=== PATIENT | female | born 1980 | race African-American/Black ===

== ENCOUNTER 2018-07-15 11:11 | Inpatient (IN) | payer OTHER ==
[2018-07-15] MEDS ORDERED: ACETAMINOPHEN INJECTION 100 ML IVPB ONE (11:16)
[2018-07-15] MEDS ORDERED: morphine SULFATE 4 MG/ML VIAL IVPUSH ONE (11:29)
[2018-07-15] MEDS ORDERED: SODIUM CHLORIDE 1,000 ML IV STA (11:29)
[2018-07-15] MEDS ORDERED: ACETAMINOPHEN 1000 MG/100 ML VIAL (NON FORMULARY) IVPB ONE (11:29)
--- NOTE | 2018-07-15 11:38 | PDOC ---
History of Present Illness - History of Present Illness Initial Comments: 07/15/18 11:54 The patient is a 38 year old female with past medical history of VSD (repair done 1996) who was brought in by EMS for syncopal episode just prior to arrival. As per family, she had just left her cousins house and was walking in the street when she became dizzy. The next thing she remembers is being surrounded by EMS and was told she lost consciousness, and hit the back of her head very hard. Upon regaining consciousness, she noted a constant sharp chest pain that radiates to her back. EMS also noted her to have elevated heart rate and low O2 saturation. She also remains dizzy since the fall. She also reports that this morning she woke up with a pain in her left calf. Denies any lower extremity swelling. She denies any use of control, denies smoking history , and denies any recent travel/prolonged sitting. Reports her grandmother has a history of heart disease. She denies any fevers, chills, nausea, vomiting, diarrhea, cough, or urinary complaints. <Nela Hobbs - Last Filed: 07/15/18 14:38> - General History Source: Patient, Family Exam Limitations: No Limitations <Mikie Tiwari - Last Filed: 07/19/18 15:10> - General Stated Complaint: SYNCOPE Time Seen by Provider: 07/15/18 11:27 Past History <Nela Hobbs - Last Filed: 07/15/18 14:38> <Mikie Tiwari - Last Filed: 07/19/18 15:10> - Past Medical History Allergies/Adverse Reactions: Allergies Allergy/AdvReac Type Severity Reaction Status Date / Time No Known Allergies Allergy Verified 07/15/18 11:25 Home Medications: Ambulatory Orders NK [No Known Home Medication] 07/15/18 NK [No Known Home Medication] 07/15/18 Review of Systems - Review of Systems Able to Perform ROS?: Yes Comments:: 07/15/18 11:54 GENERAL/CONSTITUTIONAL: No fever or chills. No weakness. HEAD, EYES, EARS, NOSE AND THROAT: No change in vision. No ear pain or discharge. No sore throat. CARDIOVASCULAR: (+) chest pain. No shortness of breath. RESPIRATORY: No cough, wheezing, or hemoptysis. GASTROINTESTINAL: No nausea, vomiting, diarrhea or constipation. GENITOURINARY: No dysuria, frequency, or change in urination. MUSCULOSKELETAL:(+) left calf pain. No neck or back pain. SKIN: No rash NEUROLOGIC: (+) Syncope. No headache, vertigo, or change in strength/sensation. ENDOCRINE: No increased thirst. No abnormal weight change. HEMATOLOGIC/LYMPHATIC: No anemia, easy bleeding, or history of blood clots. ALLERGIC/IMMUNOLOGIC: No hives or skin allergy. All Other Systems: Reviewed and Negative <Nela Hobbs - Last Filed: 07/15/18 14:38> *Physical Exam - Vital Signs Last Vital Signs Temp Pulse Resp BP Pulse Ox 99 F 112 H 23 133/88 90 L 07/15/18 11:11 07/15/18 11:11 07/15/18 11:11 07/15/18 11:11 07/15/18 11:11 - Physical Exam Comments: 07/15/18 11:55 GENERAL: Awake, alert, and fully oriented, in no acute distress HEAD: No signs of trauma EYES: PERRLA, EOMI, sclera anicteric, conjunctiva clear ENT: Auricles normal inspection, hearing grossly normal, nares patent, oropharynx clear without exudates. Moist mucosa NECK: Normal ROM, supple, no lymphadenopathy, JVD, or masses LUNGS: Breath sounds equal, clear to auscultation bilaterally. No wheezes, and no crackles HEART: Tachycardic. normal S1 and S2, no murmurs, rubs or gallops ABDOMEN: Soft, nontender, normoactive bowel sounds. No guarding, no rebound. No masses EXTREMITIES: Left calf pain on palpation. No clubbing or cyanosis. No cords, erythema, or tenderness NEUROLOGICAL: Cranial nerves II through XII grossly intact. Normal speech, normal gait SKIN: Warm, Dry, normal turgor, no rashes <Nela Hobbs - Last Filed: 07/15/18 14:38> Heart Score/ECG Review #1 ECG reviewed & interpreted by me at: 11:05 07/15/18 11:46 NSR 118, RSR' V1, TWI III, normal axis, normal intervals, QTC 445 msec <Mikie Tiwari - Last Filed: 07/19/18 15:10> ED Treatment Course - LABORATORY CBC & Chemistry Diagram: 07/15/18 11:50 07/15/18 11:50 - RADIOLOGY Radiograph Interpretation: 07/15/18 11:58 Chest X-ray as reviewed by Dr. Santana reports no acute pathology. 07/15/18 14:[address] as reviewed by Dr. Maguire reports no acute intracranial pathology. Equivocal visualization of a occipital scalp hematoma centered along the midline. 07/15/18 14:37 Chest CTA as reviewed by Dr. Maguire reports acute pulmonary embolism. 07/15/18 14:38 Vascular study reviewed by Dr. Maguire reports no evidence of DVT. - Medications Given in the ED: ED Medications Discontinued Medications Generic Name Dose Route Start Last Admin Trade Name Freq PRN Reason Stop Dose Admin Acetaminophen 1,000 mg 07/15/18 11:29 07/15/18 11:15 Ofirmev Injection - IVPB 07/15/18 11:30 1,000 mg ONCE ONE Administration <Nela Hobbs - Last Filed: 07/15/18 14:38> - LABORATORY CBC & Chemistry Diagram: 07/19/18 05:30 07/19/18 05:30 - RADIOLOGY Radiology Studies Ordered: Category Date Time Status CHEST CTA [CT] Stat CT Scan 07/15/18 11:[address] WITHOUT CONTRAST [CT] Stat CT Scan 07/15/18 11:28 Ordered CHEST X-RAY PORTABLE* [RAD] Stat Radiology 07/15/18 11:28 Ordered <Mikie Tiwari - Last Filed: 07/19/18 15:10> Medical Decision Making - Critical Care Time Total Critical Care Time (minutes): 45 Critical Care Statement: The care of this patient involved high complexity decision making to prevent further life threatening deterioration of the patient 's condition and/or to evaluate & treat vital organ system(s) failure or risk of failure. - Medical Decision Making 07/15/18 11:30 Portions of this note was written by my scribe, under my supervision. Vital Signs Temp Pulse Resp BP Pulse Ox 99 F 112 H 23 133/88 90 L 07/15/18 11:11 07/15/18 11:11 07/15/18 11:11 07/15/18 11:11 07/15/18 11:11 38-year-old female with past medical history of ventral septal defect status post repair when patient was 17 years old presents with syncope. The patient was in her usual state of health until this morning when she woke up with some left calf pain. She was walking to her cousin's home she suddenly felt dizzy and syncopized. She hit her head and is now complaining of a headache. Does not take any anticoagulants. Developed midsternal pleuritic chest pain radiating to the back. Reports some symptoms of breath and the patient's hypoxic to high 80 percent.Denies any fevers or chills. Denies prior history of pulmonary embolism or acute coronary syndrome. Patient reports feeling chest pain and feeling generally weak. EKG demonstrates an RSR prime in V1 and sinus tachycardia. Patient is hypoxic with pleuritic chest pain. I am concerned for a submassive pulmonary embolism. However, given that the patient had struck her head hard and has headache, we' ll need to hold heparin until obtained a head CT to rule out intracranial hemorrhage. We'll also obtain a troponin and BNP. Patient's family at bedside is aware. Patient is critically ill and is under evaluation by me in the ED team. 07/15/18 15:10 CBC, BMP 07/15/18 11:50 07/15/18 11:50 CMP Sodium 141 mmol/L (136-145) 07/15/18 11:50 Potassium 3.8 mmol/L (3.5-5.1) 07/15/18 11:50 Chloride 108 mmol/L (98-107) H 07/15/18 11:50 Carbon Dioxide 23 mmol/L (21-32) 07/15/18 11:50 Anion Gap 10 MMOL/L (8-16) 07/15/18 11:50 BUN 9 mg/dL (7-18) 07/15/18 11:50 Creatinine 0.7 mg/dL (0.55-1.02) 07/15/18 11:50 Creat Clearance w eGFR > 60 (>60) 07/15/18 11:50 Random Glucose 74 mg/dL (74-106) 07/15/18 11:50 Calcium 7.9 mg/dL (8.5-10.1) L 07/15/18 11:50 Phosphorus 3.2 mg/dL (2.5-4.9) 07/15/18 11:50 Magnesium 1.8 mg/dL (1.8-2.4) 07/15/18 11:50 Total Bilirubin 0.2 mg/dL (0.2-1.0) 07/15/18 11:50 AST 57 U/L (15-37) H 07/15/18 11:50 ALT 42 U/L (12-78) 07/15/18 11:50 Alkaline Phosphatase 47 U/L (45-117) 07/15/18 11:50 Creatine Kinase 153 IU/L (26-192) 07/15/18 11:50 Creatine Kinase Index 1.0 % (0.0-5.0) 07/15/18 11:50 CK-MB (CK-2) 1.68 ng/mL (0.5-3.6) 07/15/18 11:50 Troponin I 0.41 ng/ml (0.00-0.05) H 07/15/18 11:50 B-Natriuretic Peptide 87.28 pg/ml (5-125) 07/15/18 11:50 Total Protein 7.8 g/dl (6.4-8.2) 07/15/18 11:50 Albumin 3.6 g/dl (3.4-5.0) 07/15/18 11:50 Serum , Qual Negative 07/15/18 11:[address] chest with multiple bilateral PEs (but no saddle embolus). D-dimer elevated. Pt started on heparin bolus and drip. Pt's BP stable, and hypoxia correctable with nasal cannula. Case discussed with ICU attending Dr. Geremias Freed. Accepted to ICU. Admission diagnosis: submassive PE Pt to be admitted to hospital for behavioral medicine service. <Mikie Tiwari - Last Filed: 07/19/18 15:10> *DC/Admit/Observation/Transfer - Attestations Scribe Attestion: 07/15/18 11:55 Documentation prepared by Nela Hobbs, acting as medical educator for Mikie Tiwari MD. <Nela Hobbs - Last Filed: 07/15/18 14:38> - Discharge Dispostion Decision to Admit order: Yes <Mikie Tiwari - Last Filed: 07/19/18 15:10> Diagnosis at time of Disposition: Pulmonary embolism Qualifiers: Pulmonary embolism type: other Chronicity: acute Acute cor pulmonale presence: with acute cor pulmonale Qualified Code(s): I26.09 - Other pulmonary embolism with acute cor pulmonale - Discharge Dispostion Condition at time of disposition: Improved
[2018-07-15] MEDS ORDERED: MORPHINE SULFATE 2 MG/ML VIAL ONE (11:53)
[2018-07-15 12:08] LABS: BASO % 1.5 % (0-2.0); EOS % 0.4 % (0-4.5); HEMATOCRIT 33.7 % (32.4-45.2); HEMOGLOBIN 10.9 GM/dL (10.7-15.3); LYMPH % 18.3 % (8-40); MCH 27.5 pg (25.7-33.7); MCHC 32.4 g/dl (32.0-36.0); MEAN CELL VOLUME 84.8 fl (80-96); MEAN PLT VOLUME 8.7 fl (7.5-11.1); MONO % 9.7 % (3.8-10.2); NEUT % 70.1 % (42.8-82.8); PLATELET COUNT 209 K/MM3 (134-434); RBC 3.98 M/mm3 (3.60-5.2); RDW 17.2 % (11.6-15.6); WHITE BLOOD COUNT 5.2 K/mm3 (4.0-10.0)
[2018-07-15 12:29] LABS: ALBUMIN 3.6 g/dl (3.4-5.0); ANION GAP 10 MMOL/L (8-16); BILIRUBIN,TOTAL 0.2 mg/dL (0.2-1.0); BLOOD UREA NITROGEN 9 mg/dL (7-18); CALCIUM 7.9 mg/dL (8.5-10.1); CHLORIDE 108 mmol/L (98-107); CO2 23 mmol/L (21-32); CREATININE 0.7 mg/dL (0.55-1.02); GLUCOSE,RANDOM 74 mg/dL (74-106); MAGNESIUM 1.8 mg/dL (1.8-2.4); PHOSPHOROUS 3.2 mg/dL (2.5-4.9); POTASSIUM 3.8 mmol/L (3.5-5.1); SODIUM 141 mmol/L (136-145); TOT PROT 7.8 g/dl (6.4-8.2)
[2018-07-15 12:30] LABS: SGOT/AST 57 U/L (15-37); SGPT/ALT 42 U/L (12-78)
[2018-07-15 12:34] LABS: ALK PHOS 47 U/L (45-117); N-TERMINAL BNP 87.28 pg/ml (5-125)
[2018-07-15 13:09] LABS: ACTIVATED PTT 21.5 SECONDS (25.2-36.5); INR 1.04 (0.83-1.09); PROTHROMBIN TIME (PATIENT) 11.7 SEC (9.7-13.0)
[2018-07-15 13:47] LABS: URINE APPEARANCE CLEAR; URINE BILIRUBIN NEGATIVE (<2.0 mg/dL); URINE COLOR STRAW; URINE GLUCOSE (UA) NEGATIVE (NEGATIVE); URINE KETONE NEGATIVE (NEGATIVE); URINE LEUK ESTERASE NEGATIVE (NEGATIVE); URINE NITRITE NEGATIVE (NEGATIVE); URINE UROBILINOGEN NEGATIVE mg/dL (0.2-1.0)
[2018-07-15 13:51] LABS: URINE PROTEIN 1+ (NEGATIVE)
[2018-07-15 14:01] LABS: EPI CELLS FEW /HPF (FEW); URINE BACTERIA RARE /hpf (NONE SEEN); URINE MUCUS RARE
[2018-07-15] MEDS ORDERED: HEPARIN NA (PORCINE) 5,000 UNITS/ML 1ML VIAL IVPUSH ONE (14:04)
[2018-07-15] MEDS ORDERED: HEPARIN - 25,000 UNIT in SODIUM CHLORIDE 495 ML IV SCH (14:15)
[2018-07-15] MEDS ORDERED: HEPARIN NA (PORCINE) 5,000 UNITS/ML 1ML VIAL ONE (14:47)
[2018-07-15] MEDS ORDERED: HEPARIN INFUSION - 25,000 UNITS/500 ML INFUS.BAG IVPB ONE (14:48)
--- NOTE | 2018-07-15 15:43 | PN ---
Teaching Attending Note Name of Resident: Erlin Zamora ATTENDING PHYSICIAN STATEMENT I saw and evaluated the patient. I reviewed the resident's note and discussed the case with the resident. I agree with the resident's findings and plan as documented. SUBJECTIVE: Pt seen and examined in the ER. Briefly, 38yo female with h/o VSD who woke up with leg pain this AM, had a syncopal episode while walking around. Found to have bilateral pulmonary emboli on CTA chest. Denies personal or family history of clots. Nonsmoker, ambulatory, not on any hormone therapy. No prolonged sedentary periods. OBJECTIVE: Vital Signs Period Temp Pulse Resp BP Sys/Castrejon Pulse Ox Last 24 Hr 98.1 F-99 F 109-112 20-23 133-137/88-93 90-100 Intake & Output 07/12/18 07/13/18 07/14/18 07/15/18 23:59 23:59 23:59 23:59 Intake Total 1000 Balance 1000 Weight 75.75 kg Gen: NAD at rest Heart: RRR Lung: decreased breath sounds at the bases Abd: soft, nontender Ext: no edema CBC, BMP 07/15/18 11:50 07/15/18 11:50 Troponin, BNP 07/15/18 11:50 Troponin I 0.41 H B-Natriuretic Peptide 87.28 Active Medications Heparin Sodium (Porcine) 25, (000 unit/ Sodium Chloride) 500 mls @ 26 mls/hr IV TITR JEOVANY; Protocol Last Admin: 07/15/18 14:50 Dose: 1,300 unit/hr, 26 mls/hr ASSESSMENT AND PLAN: Acute Submassive Pulmonary Emboli appears to be unprovoked Syncope - continue anticoagulation - echocardiogram - trend cardiac enzymes - O2 to keep SpO2 >90% - if worsening symptoms or further syncopal episodes or right heart strain on echocardiogram, may benefit from catheter directed thrombolysis - ICU monitoring for now critical care time spent in reviewing chart, evaluating patient and formulating plan 35 min
--- NOTE | 2018-07-15 15:50 | CONSULT ---
Consultation: REQUESTING PROVIDER: Dr. Mikie Tiwari CONSULT REQUEST: We have been asked to medically evaluate this patient for Pulmonary Embolism. HISTORY OF PRESENT ILLNESS: Pt. endorses that she woke up this morning with bilateral calf pain. She denied eating breaakfast this morning. Pt. was walking to her friend's house when she felt dizzy and collapsed. Per her friend who witnessed the fall said she was brought to the hospital by ambulance. Pt. denies any prior syncopal episodes, smoking, control use, family hx. of blood clots, prior hx. of clots, sitting for a prolonged time, miscarriages or drug use. Pt. endorses chest pain that is worse with deep inspiration. REVIEW OF SYSTEMS: CONSTITUTIONAL: Absent: fever, chills, HEENT: Absent: ear pain, eye pain, visual changes CARDIOVASCULAR: syncope, chest pain Absent: palpitations, irregular heart rate, RESPIRATORY: Absent: cough, shortness of breath, dyspnea with exertion GASTROINTESTINAL: Absent: abdominal pain, abdominal distension, nausea, vomiting, diarrhea, constipation, melena, hematochezia GENITOURINARY: Absent: dysuria, frequency, urgency, hesitancy, hematuria MUSCULOSKELETAL: Absent: myalgia, arthralgia, joint swelling, back pain, neck pain SKIN: Absent: rash, itching, pallor HEMATOLOGIC/IMMUNOLOGIC: Absent: easy bleeding, easy bruising, frequent infections NEUROLOGIC: dizziness, seizure? Absent: headache, focal weakness or paresthesias, unsteady gait, , mental status changes, bladder or bowel incontinence PHYSICAL EXAMINATION Vital Signs - 24 hr 07/15/18 07/15/18 07/15/18 11:11 11:55 12:35 Temperature 99 F Pulse Rate 112 H Pulse Rate [ 110 H Apical] Respiratory 23 21 Rate Blood Pressure 133/88 Blood Pressure 135/90 [Left Arm] O2 Sat by Pulse 90 L 99 96 Oximetry (%) 07/15/18 07/15/18 14:00 15:32 Temperature 98.1 F Pulse Rate Pulse Rate [ 111 H 109 H Apical] Respiratory 20 20 Rate Blood Pressure Blood Pressure 136/92 137/93 [Left Arm] O2 Sat by Pulse 100 96 Oximetry (%) GENERAL: Awake, alert, and fully oriented, in no acute distress. HEAD: Normal with no signs of trauma. EARS, NOSE, THROAT: oropharynx clear without exudates. Moist mucous membranes. LUNGS: Breath sounds equal, clear to auscultation bilaterally. No wheezes, and no crackles. No accessory muscle use. HEART: Regular rate and rhythm, normal S1 and S2 without murmur ABDOMEN: Soft, nontender, not distended, normoactive bowel sounds, no guarding, no rebound, no masses. UPPER EXTREMITIES: warm, well-perfused. No cyanosis. No clubbing. Cap refill <2 seconds. No peripheral edema. LOWER EXTREMITIES: 2+ pulses, warm, well-perfused. No calf tenderness. No peripheral edema. PSYCHIATRIC: Cooperative. Good eye contact. Appropriate mood and affect. SKIN: Warm, dry, normal turgor Laboratory Results - last 24 hr 07/15/18 07/15/18 07/15/18 11:43 11:50 11:50 WBC 5.2 RBC 3.98 Hgb 10.9 Hct 33.7 MCV 84.8 MCH 27.5 MCHC 32.4 RDW 17.2 H Plt Count 209 MPV 8.7 Absolute Neuts (auto) 3.7 Neutrophils % 70.1 Lymphocytes % 18.3 Monocytes % 9.7 Eosinophils % 0.4 Basophils % 1.5 Nucleated RBC % 0 PT with INR 11.70 INR 1.04 PTT (Actin FS) 21.5 L D-Dimer Sodium Potassium Chloride Carbon Dioxide Anion Gap BUN Creatinine Creat Clearance w eGFR Random Glucose Calcium Phosphorus Magnesium Total Bilirubin AST ALT Alkaline Phosphatase Creatine Kinase Creatine Kinase Index CK-MB (CK-2) Troponin I B-Natriuretic Peptide Total Protein Albumin Serum , Qual Urine Color Straw Urine Appearance Clear Urine pH 6.0 Ur Specific [place] 1.009 Urine Protein 1+ H Urine Glucose (UA) Negative Urine Ketones Negative Urine Blood 1+ H Urine Nitrite Negative Urine Bilirubin Negative Urine Urobilinogen Negative Ur Leukocyte Esterase Negative Urine WBC (Auto) 2 Urine RBC (Auto) None Ur Epithelial Cells Few Urine Bacteria Rare Urine Mucus Rare 07/15/18 07/15/18 07/15/18 11:50 11:50 11:50 WBC RBC Hgb Hct MCV MCH MCHC RDW Plt Count MPV Absolute Neuts (auto) Neutrophils % Lymphocytes % Monocytes % Eosinophils % Basophils % Nucleated RBC % PT with INR INR PTT (Actin FS) D-Dimer 50933 H Sodium 141 Potassium 3.8 Chloride 108 H Carbon Dioxide 23 Anion Gap 10 BUN 9 Creatinine 0.7 Creat Clearance w eGFR > 60 Random Glucose 74 Calcium 7.9 L Phosphorus 3.2 Magnesium 1.8 Total Bilirubin 0.2 AST 57 H ALT 42 Alkaline Phosphatase 47 Creatine Kinase 153 Creatine Kinase Index 1.0 CK-MB (CK-2) 1.68 Troponin I 0.41 H B-Natriuretic Peptide 87.28 Total Protein 7.8 Albumin 3.6 Serum , Qual Negative Urine Color Urine Appearance Urine pH Ur Specific [place] Urine Protein Urine Glucose (UA) Urine Ketones Urine Blood Urine Nitrite Urine Bilirubin Urine Urobilinogen Ur Leukocyte Esterase Urine WBC (Auto) Urine RBC (Auto) Ur Epithelial Cells Urine Bacteria Urine Mucus Active Medications Current Medications Acetaminophen (Tylenol -) 650 mg PO Q6H PRN PRN Reason: PAIN LEVEL 1-5 Chlorhexidine Gluconate (Hibiclens For Decolonization -) 1 applic TP HS JEOVANY Heparin Sodium (Porcine) (Heparin -) 3,000 unit 40 unit/kg (3000 unit) IVPUSH PRN PRN PRN Reason: For aPTT 35 to 45 seconds Heparin Sodium (Porcine) (Heparin -) 6,100 unit 80 unit/kg (6100 unit) IVPUSH PRN PRN PRN Reason: aPTT <35 seconds Heparin Sodium (Porcine) 25, (000 unit/ Sodium Chloride) 500 mls @ 27.27 mls/ hr IV TITR JEOVANY; Protocol Mupirocin (Bactroban Ointment (For Decolonization) -) 1 applic NS BID JEOVANY Stop: 07/20/18 21:59 ASSESSMENT/PLAN: A 38 y.o. F w/ PMHx. of VSD surgery in 1996, presents after dizziness and syncopal episode to the ED. Pt. was admitted for unprovoked bilateral PE #Cardiovascular -Tachycardia 2/2 Bilateral PE started on Heparin drip ICU monitoring CTA positive for b/l PE: left upper lobe anterior segmental artery, right pulmonary artery distally, right posterior basilar, right upper lobe posterior, right middle lobe segmental artery. f/u Echo to rule out structural defects f/u AM labs: CBC, BMP, Phos, Mag #Pulmonary -B/l PE Pt. saturating well on room air supplemental O2 as needed to keep SpO2 above 90% #F/E/N Regular Diet Pt. receiving weight based Heparin drip #DVT PPx. c/w Heparin drip, PTT goal 60-80 If Echo is wnl can start NOAC Dispo: ICU We will continue to follow the patient. Thank you for this consultative opportunity. Visit type - Emergency Visit Emergency Visit: Yes ED Registration Date: 07/15/18 Care time: The patient presented to the Emergency Department on the above date and was hospitalized for further evaluation of their emergent condition. - New Patient This patient is new to me today: Yes Date on this admission: 07/15/18 - Critical Care Critical Care patient: No
--- NOTE | 2018-07-15 16:25 | PN ---
Teaching Attending Note Name of Resident: Kike Steinberg ATTENDING PHYSICIAN STATEMENT I saw and evaluated the patient. I reviewed the resident's note and discussed the case with the resident. I agree with the resident's findings and plan as documented. SUBJECTIVE: This is a 38 year old woman with a history of a VSD s/p repair in 1996 who comes to the ED after a witnessed syncopal episode. She states that she became dizzy while walkingand then awoke on the ground with sharp pain in her chest radiating to her back. She did not have chest pain, palpitations prior to passing out. A friend who witnessed the episode noted that she hit her head and was unconscious for about 3 minutes. OBJECTIVE: Vital Signs Period Temp Pulse Resp BP Sys/Castrejon Pulse Ox Last 24 Hr 98.1 F-99 F 109-112 20-23 133-137/88-93 90-100 HEART: S1S2, tachycardic LUNGS: Clear ABDOMEN: Soft, non-tender, non-distended, normal BS EXTREMITIES: No edema, no calf tenderness, negative Veronica's Laboratory Tests 07/15/18 07/15/18 07/15/18 11:43 11:50 11:50 WBC 5.2 RBC 3.98 Hgb 10.9 Hct 33.7 MCV 84.8 MCH 27.5 MCHC 32.4 RDW 17.2 H Plt Count 209 MPV 8.7 Absolute Neuts (auto) 3.7 Neutrophils % 70.1 Lymphocytes % 18.3 Monocytes % 9.7 Eosinophils % 0.4 Basophils % 1.5 Nucleated RBC % 0 PT with INR 11.70 INR 1.04 PTT (Actin FS) 21.5 L D-Dimer Sodium Potassium Chloride Carbon Dioxide Anion Gap BUN Creatinine Creat Clearance w eGFR Random Glucose Calcium Phosphorus Magnesium Total Bilirubin AST ALT Alkaline Phosphatase Creatine Kinase Creatine Kinase Index CK-MB (CK-2) Troponin I B-Natriuretic Peptide Total Protein Albumin Serum , Qual Urine Color Straw Urine Appearance Clear Urine pH 6.0 Ur Specific [place] 1.009 Urine Protein 1+ H Urine Glucose (UA) Negative Urine Ketones Negative Urine Blood 1+ H Urine Nitrite Negative Urine Bilirubin Negative Urine Urobilinogen Negative Ur Leukocyte Esterase Negative Urine WBC (Auto) 2 Urine RBC (Auto) None Ur Epithelial Cells Few Urine Bacteria Rare Urine Mucus Rare 07/15/18 07/15/18 07/15/18 11:50 11:50 11:50 WBC RBC Hgb Hct MCV MCH MCHC RDW Plt Count MPV Absolute Neuts (auto) Neutrophils % Lymphocytes % Monocytes % Eosinophils % Basophils % Nucleated RBC % PT with INR INR PTT (Actin FS) D-Dimer 94337 H Sodium 141 Potassium 3.8 Chloride 108 H Carbon Dioxide 23 Anion Gap 10 BUN 9 Creatinine 0.7 Creat Clearance w eGFR > 60 Random Glucose 74 Calcium 7.9 L Phosphorus 3.2 Magnesium 1.8 Total Bilirubin 0.2 AST 57 H ALT 42 Alkaline Phosphatase 47 Creatine Kinase 153 Creatine Kinase Index 1.0 CK-MB (CK-2) 1.68 Troponin I 0.41 H B-Natriuretic Peptide 87.28 Total Protein 7.8 Albumin 3.6 Serum , Qual Negative Urine Color Urine Appearance Urine pH Ur Specific [place] Urine Protein Urine Glucose (UA) Urine Ketones Urine Blood Urine Nitrite Urine Bilirubin Urine Urobilinogen Ur Leukocyte Esterase Urine WBC (Auto) Urine RBC (Auto) Ur Epithelial Cells Urine Bacteria Urine Mucus Home Medications Medication Instructions Recorded NK [No Known Home Medication] 07/15/18 ASSESSMENT AND PLAN: This is a 38 year old woman with a history of a VSD s/p repair in 1996 who presented to the ED with chest and back pain after a witnessed syncopal episode. 1. Acute submassive pulmonary embolism, unprovoked - Admit to ICU - IV heparin - Oxygen to keep saturation >90% - Monitor troponin - Echocardiogram - Pulmonary/critical care, hematology consults 2. Syncope secondary to PE 3. History of VSD and repair
--- NOTE | 2018-07-15 16:41 | HP ---
CHIEF COMPLAINT: Syncopal episode, loss of consciousness PCP: HISTORY OF PRESENT ILLNESS: 38 year old female with history of VSD repaired in 1996 presents after syncopal episode witnessed by her friend this morning. Patient was leaving her cousin's house, walking towards grocery store when she suddenly felt dizzy, and lost consciousness. She admits weakness in her B/L lower extremities (left more than right), and denies chest pain, palpitations, prodromal flushing at time of syncopal episode. Her friend witnessing the fall noted that she hit her head, and was unconscious for approx. 3 minutes. There were no tremors, tongue biting , fecal or urinary incontinence. Patient denies prior history of syncopal episode. When she regained consciousness, she admits to sharp chest pain radiating to her back, which she did not experience before her fall. She also admitted to shortness of breath, headache, dizziness, and denies fevers, chills , cough, hemoptysis. Denies recent travel, or prolonged immobilization. 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 Currently not sexually active, and does not take oral contraceptives. ER course was notable for: (1) Ofirmev, IVNS, Morphine 4mg, Heparin drip (2) EKG, CT head, CT chest, lower extremity doppler, troponins, D-dimer, (3) Recent Travel: PAST MEDICAL HISTORY: Ventricular septal defect PAST SURGICAL HISTORY: VSD repair (1996) Social History: Smoking: denies smoking history Alcohol: admits socially 1-2 drinks, approx. 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 Admits active lifestyle. Family History: Allergies: Denies food, or drug allergies. No Known Allergies Allergy (Verified 07/15/18 11:25) HOME MEDICATIONS: Home Medications Medication Instructions Recorded NK [No Known Home Medication] 07/15/18 REVIEW OF SYSTEMS CONSTITUTIONAL: Admits: Dizziness. Denies fevers, chills, recent change in weight, or change in appetite. Denies starting new medications, or change in diet. HEENT: Admits: Headache. Denies changes in her vision, changes in her hearing, tinnitus , difficulty swallowing CARDIOVASCULAR: Admits: Chest pain, syncope. Denies palpitations, lower extremity edema RESPIRATORY: Admits: Shortness of breath. Denies: wheezing, hemoptysis. GASTROINTESTINAL: Denies: Abdominal pain, nausea, vomiting, diarrhea, constipation, melanotic stools, apryl blood in stools. GENITOURINARY: Denies: Dysuria, hematuria, urinary urgency, urinary hesitancy, flank pain, MUSCULOSKELETAL: Admits: Calf pain left greater than right, that has since resolved upon my encounter. Denies any other myalgias, or arthralgias. SKIN: Denies: Pruritis, new rashes, new bruises. HEMATOLOGIC/IMMUNOLOGIC: Denies: Increased bleeding, easy bruising, or lymphadenopathy. ENDOCRINE: Denies: Recent unexpected weight loss, or weight gain. NEUROLOGIC: Denies: Weakness or parasthesias in upper or lower extremities. Denies urinary or fecal incontinence. PSYCHIATRIC: Denies: Feeling anxious or depressed. Denies suicidal or homocidal ideation. PHYSICAL EXAMINATION Vital Signs - 24 hr 07/15/18 07/15/18 07/15/18 11:11 11:55 12:35 Temperature 99 F Pulse Rate 112 H Pulse Rate [ 110 H Apical] Respiratory 23 21 Rate Blood Pressure 133/88 Blood Pressure 135/90 [Left Arm] O2 Sat by Pulse 90 L 99 96 Oximetry (%) 07/15/18 07/15/18 07/15/18 12:45 14:00 15:32 Temperature 98.1 F Pulse Rate Pulse Rate [ 111 H 109 H Apical] Respiratory 22 20 20 Rate Blood Pressure Blood Pressure 136/92 137/93 [Left Arm] O2 Sat by Pulse 96 100 96 Oximetry (%) GENERAL: Patient is awake, alert, and oriented to person, place, and time. She is resting comfortably in bed with mother at bedside in no acute distress. HEAD: Normocephalic. Tender to light palpation of occiput at midline. EYES: Pupils equal, round and reactive to light and accommodation. Extraocular movements intact. No horizontal or vertical nystagmus noted. Sclerae anicteric. EARS, NOSE, THROAT: Ears normal, nares patent, oropharynx clear without exudates. Moist mucous membranes. NECK: Negative neck pain to palpation or stiffness. Supple, without lymphadenopathy. No thyromegaly or thyroid nodules appreciated. LUNGS: Breath sounds equal, clear to auscultation bilaterally. Good inspiratory effort. No wheezes, and no crackles. No accessory muscle use. HEART: Regular rate and rhythm, +S1 and S2 auscultated. No murmurs or gallops appreciated. ABDOMEN: Soft, nontender to palpation X4 quadrants. Normoactive bowel sounds auscultated X 4 quadrants. No hepatosplenomegaly appreciated. No guarding, no rebound. Rectal: No hemorrhoids, or masses palpated. Minimal light brown stool in rectal vault. No gross blood noted. MUSCULOSKELETAL: Full range of motion in B/L upper and lowed extremities. Strength 5/5 B/L upper extremities in flexion, extension, abduction, adduction. Strength 5/5 lower extremities in hip flexion and extension, knee flexion and extension. 5/5 B/L plantarflexion and dorsiflexion. UPPER EXTREMITIES: 2+ radial pulses. No rashes, or lesions noted. LOWER EXTREMITIES: 2+ dorsalis pedis pulses. No rashes or lesions noted. No calf tenderness B/L. Negative Veronica's sign. No peripheral edema B/L. NEUROLOGICAL: Cranial nerves II-XII intact. No gross focal deficits appreciated. PSYCHIATRIC: Cooperative patient. Appropriate mood and affect upon my encounter today. Laboratory Results - last 24 hr 07/15/18 07/15/18 07/15/18 11:43 11:50 11:50 WBC 5.2 RBC 3.98 Hgb 10.9 Hct 33.7 MCV 84.8 MCH 27.5 MCHC 32.4 RDW 17.2 H Plt Count 209 MPV 8.7 Absolute Neuts (auto) 3.7 Neutrophils % 70.1 Lymphocytes % 18.3 Monocytes % 9.7 Eosinophils % 0.4 Basophils % 1.5 Nucleated RBC % 0 PT with INR 11.70 INR 1.04 PTT (Actin FS) 21.5 L D-Dimer Sodium Potassium Chloride Carbon Dioxide Anion Gap BUN Creatinine Creat Clearance w eGFR Random Glucose Calcium Phosphorus Magnesium Total Bilirubin AST ALT Alkaline Phosphatase Creatine Kinase Creatine Kinase Index CK-MB (CK-2) Troponin I B-Natriuretic Peptide Total Protein Albumin Serum , Qual Urine Color Straw Urine Appearance Clear Urine pH 6.0 Ur Specific Coy 1.009 Urine Protein 1+ H Urine Glucose (UA) Negative Urine Ketones Negative Urine Blood 1+ H Urine Nitrite Negative Urine Bilirubin Negative Urine Urobilinogen Negative Ur Leukocyte Esterase Negative Urine WBC (Auto) 2 Urine RBC (Auto) None Ur Epithelial Cells Few Urine Bacteria Rare Urine Mucus Rare 07/15/18 07/15/18 07/15/18 11:50 11:50 11:50 WBC RBC Hgb Hct MCV MCH MCHC RDW Plt Count MPV Absolute Neuts (auto) Neutrophils % Lymphocytes % Monocytes % Eosinophils % Basophils % Nucleated RBC % PT with INR INR PTT (Actin FS) D-Dimer 26452 H Sodium 141 Potassium 3.8 Chloride 108 H Carbon Dioxide 23 Anion Gap 10 BUN 9 Creatinine 0.7 Creat Clearance w eGFR > 60 Random Glucose 74 Calcium 7.9 L Phosphorus 3.2 Magnesium 1.8 Total Bilirubin 0.2 AST 57 H ALT 42 Alkaline Phosphatase 47 Creatine Kinase 153 Creatine Kinase Index 1.0 CK-MB (CK-2) 1.68 Troponin I 0.41 H B-Natriuretic Peptide 87.28 Total Protein 7.8 Albumin 3.6 Serum , Qual Negative Urine Color Urine Appearance Urine pH Ur Specific Coy Urine Protein Urine Glucose (UA) Urine Ketones Urine Blood Urine Nitrite Urine Bilirubin Urine Urobilinogen Ur Leukocyte Esterase Urine WBC (Auto) Urine RBC (Auto) Ur Epithelial Cells Urine Bacteria Urine Mucus Imaging: -EKG showed Sinus tachycardia, RSR prime in lead V1, S1Q3T3 noted. -CT Head showed no evidence of intracrainal hemorrhage. Positive for occipital scalp hematoma midline. -CT Chest showed multiple Pulmonary Emboli in right upper lobe, right posterior basilar, and right middle lobe segmental arteries, right pulmonary artery, left upper lobe anterior segmental artery. -Lower extremity duplex ultrasound showed no evidence of DVT in B/L legs ASSESSMENT/PLAN: 38 year old female with history of VSD repaired in (1996) presents after syncopal episode, and admitted for Pulmonary Embolism. Syncopal episode secondary to Acute sub-massive unprovoked PE -PEsI: high risk -EKG shows evidence of right heart strain. -CT Chest showed multiple pulmonary emboli, without saddle embolus. -Lower extremity ultrasound shows no evidence of DVT B/L. -Patient is saturating 99% on 2L NC. Goal is to maintain oxygen saturation above 90% -No evidence of intracranial hemorrhage on CT head. -Rectal exam performed- no apryl blood noted. Sent for stool occult. Will F/U. -Patient started on Heparin Drip. STAT bolus 80mg/kg given in ED. -Continue maintenance Heparin drip. PTT goal 60-80 -Pain control with Tylenol 650mg PO Q6 PRN for pain 1-5 -Daily PTT, CBC, CMP -Will F/U ICU/ Pulmonology consultation (Dr. Freed) -Will F/U Hematology/ Oncolgy consult for thrombophilia workup. R/O Acute Coronary Syndrome -EKG showed Sinus tachycardia, RSR prime in lead V1, S1Q3T3 noted. -Troponin 0.41, CK-MB 1.68 -Will trend troponins, with serial ECG -Will F/U cardiac echo FEN -No IV fluids, patient tolerating PO intake -Electrolytes within normal limits. Will follow CMP -Regular diet Prophylaxis -Patient is on Heparin drip Disposition: Admit to ICU Visit type - Emergency Visit Emergency Visit: Yes ED Registration Date: 07/15/18 Care time: The patient presented to the Emergency Department on the above date and was hospitalized for further evaluation of their emergent condition. - New Patient This patient is new to me today: Yes Date on this admission: 07/15/18 - Critical Care Critical Care patient: Yes Total Critical Care Time (in minutes): 35 Critical Care Statement: The care of this patient involved high complexity decision making to prevent further life threatening deterioration of the patient 's condition and/or to evaluate & treat vital organ system(s) failure or risk of failure. Hospitalist Screening - Colonoscopy Questionnaire Colonoscopy Questionnaire: Colonoscopy Questionnaire - Patient: 50 - 75 years old and never had a screening colonoscopy: No History of colon or rectal polyps, or CA: No History of IBD, Crohn's disease or UC: No History of abdominal radiation therapy as a child: Unknown - Relative: 1 with colon or rectal CA, or polyps at age 60 or younger: Unknown Colon or rectal CA diagnosed at age 45 or younger: Unknown Multiple relatives with colon or rectal CA: Unknown - Outcome: Screening Result: Negative Screen
[2018-07-15] MEDS ORDERED: HEPARIN NA (PORCINE) 5,000 UNITS/ML 1ML VIAL IVPUSH PRN ×2 (16:42)
--- NOTE | 2018-07-15 18:40 | CONSULT ---
Consult - text type - Consultation Consultation Note: The patient is a 38 year old female with past medical history of VSD (repair done 1996) who was brought in by EMS for syncopal episode just prior to arrival. As per family, she had just left her cousins house and was walking in the street when she became dizzy. The next thing she remembers is being surrounded by EMS and was told she lost consciousness, and hit the back of her head very hard. Upon regaining consciousness, she noted a constant sharp chest pain that radiates to her back. EMS also noted her to have elevated heart rate and low O2 saturation. She also remains dizzy since the fall. She also reports that this morning she woke up with a pain in her left calf. Denies any lower extremity swelling. She denies any use of control, denies smoking history , and denies any recent travel/prolonged immobility. She denies any fevers, chills, nausea, vomiting, diarrhea, cough, or urinary complaints. Allergies/Adverse Reactions: Allergies Allergy/AdvReac Type Severity Reaction Status Date / Time No Known Allergies Allergy Verified 07/15/18 11:25 Home Medications: Ambulatory Orders NK [No Known Home Medication] 07/15/18 - Vital Signs Last Vital Signs Temp Pulse Resp BP Pulse Ox 99 F 112 H 23 133/88 90 L 07/15/18 11:11 07/15/18 11:11 07/15/18 11:11 07/15/18 11:11 07/15/18 11:11 - RADIOLOGY Radiograph Interpretation: 07/15/18 11:58 Chest X-ray as reviewed by Dr. Santana reports no acute pathology. 07/15/18 14:[address] as reviewed by Dr. Maguire reports no acute intracranial pathology. Equivocal visualization of a occipital scalp hematoma centered along the midline. 07/15/18 14:37 Chest CTA as reviewed by Dr. Maguire reports acute pulmonary embolism. 07/15/18 14:38 Vascular study reviewed by Dr. Maguire reports no evidence of DVT. Vital Signs Temp Pulse Resp BP Pulse Ox 99 F 112 H 23 133/88 90 L 07/15/18 11:11 07/15/18 11:11 07/15/18 11:11 07/15/18 11:11 07/15/18 11:11 Cor: RSR, No murmurs, No gallops Lungs: Clear to P&A Abd: Soft, Normal bowel sounds, No organomegaly Ext:No significant edema Skin: No rashes, Integument intact A/P 38-year-old female with past medical history of ventral septal defect status post repair when patient was 17 years old presents with syncope. The patient was in her usual state of health until this morning when she woke up with some left calf pain. She was walking to her cousin's home she suddenly felt dizzy and syncopized. She hit her head. Does not take any anticoagulants. Developed midsternal pleuritic chest pain radiating to the back. Reports some symptoms of breath and the patient's hypoxic to high 80 percent. No family h/o thrombophilia/no h/o immobility/surgery/injury in preceding 2-3 months/no h/o control pills ?Unprovoked , submassive PE Echo to [facility] at [facility] rt. heart strain. Cardiology consult Pulmonary consult noted On heparin drip PTT being titrated Nl PT/PTT baseline. Renal function normal. 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
[2018-07-15] MEDS: HEPARIN - 25,000 UNIT in SODIUM CHLORIDE 495 ML IV SCH (19:08)
--- NOTE | 2018-07-15 19:13 | ECHO ---
Name: MAURA MOYA Exam:Adult Echocardiogram Study Date: 07/15/2018 04:19 PM Age: 38 yrs Reason For Study: MULTIPLE PE R/O HEART STRAIN Height: 65 in Weight: 167 lb BSA: 1.8 m2 MMode/2D Measurements & Calculations IVSd: 0.72 cm Ao root diam: 2.9 cm LVIDd: 4.3 cm LA dimension: 2.7 cm LVIDs: 2.8 cm LVPWd: 0.71 cm EDV(Teich): 82.2 ml TAPSE: 2.1 cm ESV(Teich): 30.7 ml RV S Mario: 7.3 cm/sec Doppler Measurements & Calculations MV E max mario: 48.9 cm/sec Ao V2 max: 125.1 cm/sec MV A max mario: 59.7 cm/sec Ao max P.3 mmHg MV E/A: 0.82 LV V1 max P.4 mmHg TR max mario: 254.4 cm/sec LV V1 max: 77.9 cm/sec TR max P.0 mmHg Med Peak E' Mario: 7.2 cm/sec Med E/e': 6.8 Lat Peak E' Mario: 11.5 cm/sec Lat E/e': 4.2 Left Ventricle The left ventricular size, thickness and function are normal. The transmitral spectral Doppler flow p attern is suggestive of impaired LV relaxation. Right Ventricle The right ventricle is severely dilated. The right ventricular systolic function is moderate to sever avery reduced. There are regional wall motion abnormalities. Atria The left atrial size is normal. The right atrium is mildly dilated. Tricuspid Valve There is moderate tricuspid regurgitation. Great Vessels The aortic root is normal size. Pericardium/Pleura There is no pericardial effusion. Interpretation Summary The left ventricular size, thickness and function are normal The transmitral spectral Doppler flow pattern is suggestive of impaired LV relaxation. The right ventricle is severely dilated. There are regional wall motion abnormalities. The left atrial size is normal. The right atrium is mildly dilated. There is moderate tricuspid regurgitation. The aortic root is normal size. There is no pericardial effusion. Waldemar Umanzor MD 07/15/2018 07:12 PM
[2018-07-15] MEDS: CHLORHEXIDINE GLUCONATE 4% CLEANSER FOR DECOLONIZATION TP SCH (22:00)
[2018-07-15] MEDS: MUPIROCIN 2% TOPICAL OINTMENT FOR DECOLONIZATION NS SCH (22:00)
[2018-07-16] MEDS ORDERED: INSULIN REGULAR HUMAN 100 UNITS/ML *VIAL ONE (02:44)
[2018-07-16 06:18] LABS: HEMATOCRIT 30.4 % (32.4-45.2); HEMOGLOBIN 9.8 GM/dL (10.7-15.3); MCH 27.1 pg (25.7-33.7); MCHC 32.1 g/dl (32.0-36.0); MEAN CELL VOLUME 84.5 fl (80-96); MEAN PLT VOLUME 8.8 fl (7.5-11.1); PLATELET COUNT 178 K/MM3 (134-434); RDW 17.4 % (11.6-15.6); WHITE BLOOD COUNT 4.8 K/mm3 (4.0-10.0)
[2018-07-16 06:33] LABS: INR 1.17 (0.83-1.09); PROTHROMBIN TIME (PATIENT) 13.2 SEC (9.7-13.0)
[2018-07-16 06:58] LABS: ANION GAP 6 MMOL/L (8-16); BLOOD UREA NITROGEN 12 mg/dL (7-18); CALCIUM 7.7 mg/dL (8.5-10.1); CHLORIDE 108 mmol/L (98-107); CO2 27 mmol/L (21-32); CREATININE 0.7 mg/dL (0.55-1.02); GLUCOSE,RANDOM 90 mg/dL (74-106); MAGNESIUM 1.9 mg/dL (1.8-2.4); PHOSPHOROUS 3.4 mg/dL (2.5-4.9); POTASSIUM 3.9 mmol/L (3.5-5.1); SODIUM 141 mmol/L (136-145)
[2018-07-16] MEDS ORDERED: CALCIUM (OYSTER SHELL) 500 MG TABLET (FP) PO ONE (08:16)
[2018-07-16] MEDS: HEPARIN - 25,000 UNIT in SODIUM CHLORIDE 495 ML IV SCH ×2 (09:35→17:49)
[2018-07-16] MEDS: MUPIROCIN 2% TOPICAL OINTMENT FOR DECOLONIZATION NS SCH ×2 (11:24→23:00)
--- NOTE | 2018-07-16 11:49 | PN ---
Teaching Attending Note Name of Resident: Demetra Lopez ATTENDING PHYSICIAN STATEMENT I saw and evaluated the patient. I reviewed the resident's note and discussed the case with the resident. I agree with the resident's findings and plan as documented. SUBJECTIVE: Pt seen and examined in the ICU. Denies shortness of breath, chest pain or palpitations. Has been hemodynamically stable. Echocardiogram showing RV dilatation. OBJECTIVE: Vital Signs Period Temp Pulse Resp BP Sys/Castrejon Pulse Ox Last 24 Hr 97.9 F-99.2 F 84-111 14-24 102-137/66-93 96-100 Intake & Output 07/13/18 07/14/18 07/15/18 07/16/18 23:59 23:59 23:59 23:59 Intake Total 1090 200 Output Total 1250 1000 Balance -160 -800 Weight 75.7 kg Gen: NAD at rest Heart: RRR Lung: decreased breath sounds at the bases Abd: soft, nontender Ext: no edema CBC, BMP 07/16/18 05:30 07/16/18 05:30 Active Medications Acetaminophen (Tylenol -) 650 mg PO Q6H PRN PRN Reason: PAIN LEVEL 1-5 Chlorhexidine Gluconate (Hibiclens For Decolonization -) 1 applic TP HS JEOVANY Last Admin: 07/15/18 22:00 Dose: 1 applic Heparin Sodium (Porcine) (Heparin -) 3,000 unit 40 unit/kg (3000 unit) IVPUSH PRN PRN PRN Reason: For aPTT 35 to 45 seconds Heparin Sodium (Porcine) (Heparin -) 6,100 unit 80 unit/kg (6100 unit) IVPUSH PRN PRN PRN Reason: aPTT <35 seconds Heparin Sodium (Porcine) 25, (000 unit/ Sodium Chloride) 500 mls @ 27.27 mls/ hr IV TITR JEOVANY; Protocol Last Admin: 07/16/18 09:35 Dose: 16.3 unit/kg/hr, 24.69 mls/hr Mupirocin (Bactroban Ointment (For Decolonization) -) 1 applic NS BID JEOVANY Stop: 07/20/18 21:59 Last Admin: 07/16/18 11:24 Dose: 1 appful ASSESSMENT AND PLAN: Acute Submassive Pulmonary Emboli appears to be unprovoked RV Strain Syncope - continue anticoagulation - trend cardiac enzymes - O2 to keep SpO2 >90% - will discuss with IR possible catheter directed thrombolysis - ICU monitoring for now
--- NOTE | 2018-07-16 12:38 | PN ---
Progress Note (short form) - Note Progress Note: Patient seen and examined Denies any complaints Feels well Last Vital Signs Temp Pulse Resp BP Pulse Ox 99.2 F 84 18 102/73 100 07/16/18 03:00 07/16/18 08:00 07/16/18 08:00 07/16/18 08:00 07/16/18 08:39 HEENT--normal Cor: RSR, No murmurs, No gallops Lungs: Clear to P&A Abd: Soft, Normal bowel sounds, No organomegaly Ext:No significant edema Abnormal Lab Results 07/15/18 07/15/18 07/15/18 11:43 11:50 11:50 Hgb Hct RDW PT with INR INR PTT (Actin FS) 21.5 L D-Dimer 47550 H Chloride Anion Gap Calcium AST Troponin I Urine Protein 1+ H Urine Blood 1+ H 07/15/18 07/15/18 07/15/18 11:50 18:15 19:30 Hgb Hct RDW PT with INR INR PTT (Actin FS) 99.9 H D-Dimer Chloride 108 H Anion Gap Calcium 7.9 L AST 57 H Troponin I 0.41 H 1.50 H* Urine Protein Urine Blood 07/16/18 07/16/18 07/16/18 05:30 05:30 05:30 Hgb 9.8 L Hct 30.4 L RDW 17.4 H PT with INR 13.20 H INR 1.17 H PTT (Actin FS) D-Dimer Chloride 108 H Anion Gap 6 L Calcium 7.7 L AST Troponin I Urine Protein Urine Blood 07/16/18 07/16/18 05:30 10:25 Hgb Hct RDW PT with INR INR PTT (Actin FS) 70.3 H D-Dimer Chloride Anion Gap Calcium AST Troponin I 0.30 H Urine Protein Urine Blood Active Medications Acetaminophen (Tylenol -) 650 mg PO Q6H PRN PRN Reason: PAIN LEVEL 1-5 Chlorhexidine Gluconate (Hibiclens For Decolonization -) 1 applic TP HS JEOVANY Last Admin: 07/15/18 22:00 Dose: 1 applic Heparin Sodium (Porcine) (Heparin -) 3,000 unit 40 unit/kg (3000 unit) IVPUSH PRN PRN PRN Reason: For aPTT 35 to 45 seconds Heparin Sodium (Porcine) (Heparin -) 6,100 unit 80 unit/kg (6100 unit) IVPUSH PRN PRN PRN Reason: aPTT <35 seconds Heparin Sodium (Porcine) 25, (000 unit/ Sodium Chloride) 500 mls @ 27.27 mls/ hr IV TITR JEOVANY; Protocol Last Admin: 07/16/18 09:35 Dose: 16.3 unit/kg/hr, 24.69 mls/hr Mupirocin (Bactroban Ointment (For Decolonization) -) 1 applic NS BID JEOVANY Stop: 07/20/18 21:59 Last Admin: 07/16/18 11:24 Dose: 1 appful A/P 38-year-old female with past medical history of ventral septal defect status post repair when patient was 17 years old presents with syncope. The patient was in her usual state of health until this morning when she woke up with some left calf pain. She was walking to her cousin's home she suddenly felt dizzy and syncopized. She hit her head. Developed midsternal pleuritic chest pain radiating to the back. Reports some symptoms of breath and the patient's hypoxic to high 80 percent. No family h/o thrombophilia/no h/o immobility/surgery/injury in preceding 2-3 months/no h/o control pills ?Unprovoked , submassive PE Echo --severely dilated/hypokinetic RV Pulmonary /cardiology follow up On heparin drip PTT being titrated Nl PT/PTT baseline. Renal function normal. AST mildly elevated will decide on NOAC vs coumadin based on clinical course. 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
--- NOTE | 2018-07-16 14:02 | PN ---
Progress Note (short form) - Note Progress Note: Patient is feeling better with no acute distress, feels better than yesterday. No shortness of breath, no fever, or chills. Vital Signs Temperature 99.2 F 07/16/18 03:00 Pulse Rate 84 07/16/18 08:00 Respiratory Rate 18 07/16/18 08:00 Blood Pressure 102/73 07/16/18 08:00 O2 Sat by Pulse Oximetry (%) 100 07/16/18 08:39 GEN: awake, alert, and oriented to person, place, and time. She is resting comfortably in bed, with no acute distress. HEAD: Normocephalic. A/T. EYES: Pupils equal, round and reactive to light and accommodation. Extraocular movements intact. EARS, NOSE, THROAT: Ears normal, oropharynx clear without exudates. Moist mucous membranes. NECK: Negative neck pain to palpation or stiffness. Supple, without lymphadenopathy. No thyromegaly or thyroid nodules appreciated. LUNGS: Breath sounds equal, clear to auscultation bilaterally. Good inspiratory effort. No wheezes, and no crackles. No accessory muscle use. HEART: Regular rate and rhythm, +S1 and S2 auscultated. No murmurs or gallops appreciated. ABDOMEN: Soft, nontender to palpation X 4 quadrants. Normoactive bowel sounds auscultated X 4 quadrants. MUSCULOSKELETAL: Full range of motion in B/L upper and lowed extremities. EXTREMITIES: 2+ radial pulses. No rashes, or lesions noted. NEUROLOGICAL: Cranial nerves II-XII intact. No gross focal deficits appreciated. PSYCHIATRIC: Cooperative patient. Appropriate mood and affect. CBCD WBC 4.8 K/mm3 (4.0-10.0) 07/16/18 05:30 RBC 3.60 M/mm3 (3.60-5.2) 07/16/18 05:30 Hgb 9.8 GM/dL (10.7-15.3) L 07/16/18 05:30 Hct 30.4 % (32.4-45.2) L 07/16/18 05:30 MCV 84.5 fl (80-96) 07/16/18 05:30 MCHC 32.1 g/dl (32.0-36.0) 07/16/18 05:30 RDW 17.4 % (11.6-15.6) H 07/16/18 05:30 Plt Count 178 K/MM3 (134-434) 07/16/18 05:30 MPV 8.8 fl (7.5-11.1) 07/16/18 05:30 CMP Sodium 141 mmol/L (136-145) 07/16/18 05:30 Potassium 3.9 mmol/L (3.5-5.1) 07/16/18 05:30 Chloride 108 mmol/L (98-107) H 07/16/18 05:30 Carbon Dioxide 27 mmol/L (21-32) 07/16/18 05:30 Anion Gap 6 MMOL/L (8-16) L 07/16/18 05:30 BUN 12 mg/dL (7-18) 07/16/18 05:30 Creatinine 0.7 mg/dL (0.55-1.02) 07/16/18 05:30 Creat Clearance w eGFR > 60 (>60) 07/16/18 05:30 Random Glucose 90 mg/dL (74-106) 07/16/18 05:30 Calcium 7.7 mg/dL (8.5-10.1) L 07/16/18 05:30 Total Bilirubin 0.2 mg/dL (0.2-1.0) 07/15/18 11:50 AST 57 U/L (15-37) H 07/15/18 11:50 ALT 42 U/L (12-78) 07/15/18 11:50 Alkaline Phosphatase 47 U/L (45-117) 07/15/18 11:50 Total Protein 7.8 g/dl (6.4-8.2) 07/15/18 11:50 Albumin 3.6 g/dl (3.4-5.0) 07/15/18 11:50 CARDIAC ENZYMES Creatine Kinase 111 IU/L (26-192) 07/16/18 10:25 Troponin I 0.30 ng/ml (0.00-0.05) H 07/16/18 10:25 Current Medications Generic Name Dose Route Start Last Admin Trade Name Freq PRN Reason Stop Dose Admin Acetaminophen 650 mg 07/15/18 16:27 Tylenol - PO Q6H PRN PAIN LEVEL 1-5 Chlorhexidine Gluconate 1 applic 07/15/18 22:00 07/15/18 22:00 Hibiclens For Decolonization - TP 1 applic HS JEOVANY Administration Heparin Sodium (Porcine) 3,000 unit 07/15/18 16:42 Heparin - 40 unit/kg (3000 unit) IVPUSH PRN PRN For aPTT 35 to 45 seconds Heparin Sodium (Porcine) 6,100 unit 07/15/18 16:42 Heparin - 80 unit/kg (6100 unit) IVPUSH PRN PRN aPTT <35 seconds Heparin Sodium (Porcine) 25, 500 mls @ 27.27 mls/hr 07/15/18 17:00 07/16/18 09:35 000 unit/ Sodium Chloride IV 16.3 unit/kg/hr TITR JEOVANY 24.69 mls/hr Administration Protocol 18 UNIT/KG/HR Mupirocin 1 applic 07/15/18 22:00 07/16/18 11:24 Bactroban Ointment (For Decolonization) - NS 07/20/18 21:59 1 appful BID JEOVANY Administration Home Medications Medication Instructions Recorded NK [No Known Home Medication] 07/15/18 Clinical information given: syncope; evaluate for pulmonary embolism Acute emboli identified within the right upper lobe posterior segmental , right posterior basilar, right middle lobe segmental arteries. A small linear acute embolus is seen within the right pulmonary artery distally. An acute embolus is seen within the left upper lobe anterior segmental artery. No infiltrate or pleural effusion is seen. There is no definite cardiac enlargement. No definite CT evidence of right heart strain is seen. Correlate with echocardiography. There is no pericardial effusion. Status post median sternotomy. No aortic aneurysm is noted. There is no obvious lymphadenopathy. The visualized osseous structures demonstrate no obvious acute pathology. No prior CT studies are available at this facility for direct comparison. Impression: Acute pulmonary embolism is identified as discussed above. Echo: Right ventricle is severely dilated. , left atriak size is normal A/P: This is a 38 year old woman with a history of a VSD s/p repair in 1996 who presented to the ED with chest and back pain after a witnessed syncopal episode. # Acute BL pulmonary embolism, unprovoked;as mentioned above, Admit to ICU, IV heparin ,on Oxygen to keep saturation >90%, Echocardiogram reviewed Pulmonary/critical care, hematology consults appreciated. Will get iR involved to evaluate the patient for possible thrombectomy # Syncope secondary to PE in ICu, will monitor # History of VSD and repair' DVT Px : heparin drip Visit type - Emergency Visit Emergency Visit: Yes ED Registration Date: 07/15/18 Care time: The patient presented to the Emergency Department on the above date and was hospitalized for further evaluation of their emergent condition. - New Patient This patient is new to me today: Yes Date on this admission: 07/16/18 - Critical Care Critical Care patient: No - Discharge Referral Referred to [facility] Med P.C.: No
--- NOTE | 2018-07-16 14:26 | PN ---
Physical Exam: SUBJECTIVE: Patient is a 38 y/o female with a history of VSD who is admitted for bilateral PE. Patient had no acute events over night and has no complaints. Patient on heparin drip. OBJECTIVE: Vital Signs Temperature 99.2 F 07/16/18 03:00 Pulse Rate 84 07/16/18 08:00 Respiratory Rate 18 07/16/18 08:00 Blood Pressure 102/73 07/16/18 08:00 O2 Sat by Pulse Oximetry (%) 100 07/16/18 08:39 GENERAL: The patient is awake, alert, and fully oriented, in no acute distress. EYES: PERRL, extraocular movements intact, LUNGS: Breath sounds equal, clear to auscultation bilaterally, no wheezes, no crackles, no accessory muscle use. HEART: Regular rate and rhythm, S1, S2 ABDOMEN: Soft, nontender, nondistended, normoactive bowel sounds EXTREMITIES: warm, well-perfused, no edema. PSYCH: Normal mood, normal affect. SKIN: Warm, dry Active Medications Acetaminophen (Tylenol -) 650 mg PO Q6H PRN PRN Reason: PAIN LEVEL 1-5 Chlorhexidine Gluconate (Hibiclens For Decolonization -) 1 applic TP HS JEOVANY Last Admin: 07/15/18 22:00 Dose: 1 applic Heparin Sodium (Porcine) (Heparin -) 3,000 unit 40 unit/kg (3000 unit) IVPUSH PRN PRN PRN Reason: For aPTT 35 to 45 seconds Heparin Sodium (Porcine) (Heparin -) 6,100 unit 80 unit/kg (6100 unit) IVPUSH PRN PRN PRN Reason: aPTT <35 seconds Heparin Sodium (Porcine) 25, (000 unit/ Sodium Chloride) 500 mls @ 27.27 mls/ hr IV TITR JEOVANY; Protocol Last Admin: 07/16/18 09:35 Dose: 16.3 unit/kg/hr, 24.69 mls/hr Mupirocin (Bactroban Ointment (For Decolonization) -) 1 applic NS BID JEOVANY Stop: 07/20/18 21:59 Last Admin: 07/16/18 11:24 Dose: 1 appful ASSESSMENT/PLAN: Patient is a 38 y/o female with a history of VSD who is admitted for bilateral PE. Cardio tropinemia - likely s/s to R heart strain - trending down 1.50 > .30 Pulmonary B/L PE - acute emboli identified within the right upper lobe posterior segmental, right posterior basilar, right middle lobe segmental arteries. Small linear acute embolus is seen withing the right pulmonary artery distally, acute embolus in left upper lobe - Heparin drip with PTT goal of 60-85 - Echo: LV normal, impaire LV relaxation, RV severly dilated, RA mildly dilated, moderate tricuspid regurg - discuss with IR tomorrow possibility of thrombolysis because of R heart strain - oxygen saturation > 90% hematology anemia - normocytic hgb 9.8, Hct 30.4 - f/u serum iron, ferritin, TIBC FEN - regular diet Dispo: discuss with IR tomorrow, NOAC if no trhombectomy and can DC Visit type - Emergency Visit Emergency Visit: No - New Patient This patient is new to me today: Yes Date on this admission: 07/16/18 - Critical Care Critical Care patient: Yes Total Critical Care Time (in minutes): 45 Critical Care Statement: The care of this patient involved high complexity decision making to prevent further life threatening deterioration of the patient 's condition and/or to evaluate & treat vital organ system(s) failure or risk of failure.
--- NOTE | 2018-07-16 17:17 | CON.CARD ---
Consult Consult Specialty:: Cardiology - History of Present Illness Chief Complaint: Syncope/PE History of Present Illness: 38 yo F with prior VSD repair at age 17 was admitted after a syncope. While standing she had lightheadedness and passed out. She was SOB after and in ER was hypoxic. A Chest CT showed pulmonary emboli involving multiple segments without RT heart strain. Echocardiogram showed normal LV function with moderate to severe RV hypokinesis and dilation. There is moderate TR and mild RA enlargement. Pulmonary pressure was not elevated as per this study. She is no longer SOB and reports no pain or palpitations. THere is no prior history of clotting, no recent travel or medication use. - History Source History Provided By: Patient Limitations to Obtaining History: No Limitations - Past Medical History ...LMP: 06/29/18 ...: No (as per pt) - Alcohol/Substance Use Hx Alcohol Use: Yes (3 x's monthe 1 or 2 drinks) - Smoking History Smoking history: Never smoked Home Medications - Allergies Allergies/Adverse Reactions: Allergies Allergy/AdvReac Type Severity Reaction Status Date / Time No Known Allergies Allergy Verified 07/15/18 11:25 - Home Medications Home Medications: Ambulatory Orders NK [No Known Home Medication] 07/15/18 Review of Systems - Review of Systems Constitutional: reports: No Symptoms. denies: Chills, Diaphoresis Eyes: denies: Blind Spots, Blurred Vision HENT: denies: Difficult Swallowing, Ear Discharge Neck: reports: No Symptoms. denies: Decreased ROM Cardiovascular: denies: Chest Pain, Edema, Palpitations, Shortness of Breath Respiratory: denies: Cough, Exercise Intolerance, SOB Gastrointestinal: reports: No Symptoms Genitourinary: reports: No Symptoms Breasts: reports: No Symptoms Reported Musculoskeletal: reports: No Symptoms Integumentary: reports: No Symptoms Endocrine: reports: No Symptoms Vital Signs: Vital Signs Temperature 98.8 F 07/16/18 16:00 Pulse Rate 94 H 07/16/18 16:00 Respiratory Rate 22 07/16/18 16:00 Blood Pressure 115/76 07/16/18 16:00 O2 Sat by Pulse Oximetry (%) 100 07/16/18 08:39 Constitutional: Yes: Well Nourished, No Distress, Calm Eyes: Yes: Conjunctiva Clear, EOM Intact HENT: Yes: Atraumatic, Normocephalic Neck: Yes: Supple, Trachea Midline Respiratory: Yes: Regular, CTA Bilaterally Gastrointestinal: Yes: Normal Bowel Sounds, Soft Cardiovascular: Yes: Regular Rate and Rhythm. No: Gallop, Rub (midline scar) JVD: No Carotid Bruit: No PMI: Non-Displaced Murmur: No: Systolic Murmur, Diastolic Murmur Edema: No - Other Data Labs, Other Data: CBC, BMP 07/16/18 05:30 07/16/18 05:30 INR, PTT INR 1.17 (0.83-1.09) H 07/16/18 05:30 Troponin, BNP 07/15/18 07/16/18 18:15 10:25 Troponin I 1.50 H* 0.30 H Troponin, BNP 07/15/18 07/16/18 18:15 10:25 Troponin I 1.50 H* 0.30 H Echo: Report Reviewed Problem List - Problems (1) Pulmonary embolism Code(s): I26.99 - OTHER PULMONARY EMBOLISM WITHOUT ACUTE COR PULMONALE Qualifiers: Pulmonary embolism type: other Chronicity: acute Acute cor pulmonale presence: with acute cor pulmonale Qualified Code(s): I26.09 - Other pulmonary embolism with acute cor pulmonale Assessment/Plan 38 F prior VSD patch repair admitted with pulmonary embolism. Elevated TP reflecting significant RV strain from clot burden. She is symptomatically better with resolution of hypoxia after treatment with anticoagulation. Seems unprovoked and hematology evaluation is in process. To consider possible throbolysis given clot burden.
[2018-07-16] MEDS: ACETAMINOPHEN 325 MG TABLET (FP) PO PRN (17:50)
[2018-07-16] MEDS: CHLORHEXIDINE GLUCONATE 4% CLEANSER FOR DECOLONIZATION TP SCH (23:00)
[2018-07-17 06:18] LABS: HEMOGLOBIN 9.4 GM/dL (10.7-15.3); MCH 27.2 pg (25.7-33.7); MCHC 32.3 g/dl (32.0-36.0); MEAN CELL VOLUME 84.4 fl (80-96); MEAN PLT VOLUME 8.7 fl (7.5-11.1); PLATELET COUNT 170 K/MM3 (134-434); RBC 3.44 M/mm3 (3.60-5.2); RDW 17.1 % (11.6-15.6); WHITE BLOOD COUNT 4.1 K/mm3 (4.0-10.0)
[2018-07-17 06:29] LABS: INR 1.17 (0.83-1.09); PROTHROMBIN TIME (PATIENT) 13.2 SEC (9.7-13.0)
[2018-07-17] MEDS ORDERED: HEMOQUE TEST 1 EACH EACH ONE ×2 (06:36→06:42)
[2018-07-17 07:19] LABS: ALBUMIN 2.6 g/dl (3.4-5.0); ANION GAP 8 MMOL/L (8-16); BLOOD UREA NITROGEN 8 mg/dL (7-18); CALCIUM 7.1 mg/dL (8.5-10.1); CHLORIDE 109 mmol/L (98-107); CO2 25 mmol/L (21-32); GLUCOSE,RANDOM 87 mg/dL (74-106); MAGNESIUM 1.6 mg/dL (1.8-2.4); POTASSIUM 3.3 mmol/L (3.5-5.1); SGOT/AST 18 U/L (15-37); SGPT/ALT 24 U/L (12-78); SODIUM 142 mmol/L (136-145)
[2018-07-17 07:21] LABS: ALK PHOS 39 U/L (45-117); BILIRUBIN,TOTAL 0.3 mg/dL (0.2-1.0); CREATININE 0.6 mg/dL (0.55-1.02); PHOSPHOROUS 2.9 mg/dL (2.5-4.9)
[2018-07-17] MEDS ORDERED: MAGNESIUM OXIDE 400 MG TABLET (FP) PO ONE (08:15)
[2018-07-17] MEDS ORDERED: POTASSIUM CHLORIDE TABS 20 MEQ TABLET.ER (FP) PO ONE (08:15)
[2018-07-17] MEDS: MUPIROCIN 2% TOPICAL OINTMENT FOR DECOLONIZATION NS SCH ×2 (10:49→21:35)
--- NOTE | 2018-07-17 11:47 | PN ---
Physical Exam: SUBJECTIVE: Patient seen and examined. No acute events overnight. Pt. denies SOB , CP or leg pain. OBJECTIVE: Vital Signs Period Temp Pulse Resp BP Sys/Castrejon Pulse Ox Last 24 Hr 98 F-98.8 F 66-95 13-24 98-129/62-93 100-100 GENERAL: The patient is awake, alert, and fully oriented, resting in bed in no acute distress. LUNGS: Breath sounds equal, clear to auscultation bilaterally, no wheezes, no crackles, no accessory muscle use. HEART: Regular rate and rhythm, S1, S2 without murmur EXTREMITIES: 2+ dorsal pedal pulses, warm, well-perfused, no edema, no calf tenderness. PSYCH: Normal mood, normal affect. SKIN: Warm, dry, normal turgor Laboratory Results - last 24 hr 07/17/18 07/17/18 07/17/18 05:30 05:30 05:30 WBC 4.1 RBC 3.44 L Hgb 9.4 L Hct 29.0 L MCV 84.4 MCH 27.2 MCHC 32.3 RDW 17.1 H Plt Count 170 MPV 8.7 PT with INR INR PTT (Actin FS) 71.4 H Sodium 142 Potassium 3.3 L Chloride 109 H Carbon Dioxide 25 Anion Gap 8 BUN 8 Creatinine 0.6 Creat Clearance w eGFR > 60 Random Glucose 87 Calcium 7.1 L Phosphorus 2.9 Magnesium 1.6 L Ferritin 6.8 L Total Bilirubin 0.3 AST 18 ALT 24 Alkaline Phosphatase 39 L Total Protein 6.0 L Albumin 2.6 L 07/17/18 05:30 WBC RBC Hgb Hct MCV MCH MCHC RDW Plt Count MPV PT with INR 13.20 H INR 1.17 H PTT (Actin FS) Sodium Potassium Chloride Carbon Dioxide Anion Gap BUN Creatinine Creat Clearance w eGFR Random Glucose Calcium Phosphorus Magnesium Ferritin Total Bilirubin AST ALT Alkaline Phosphatase Total Protein Albumin Active Medications Current Medications Acetaminophen (Tylenol -) 650 mg PO Q6H PRN PRN Reason: PAIN LEVEL 1-5 Last Admin: 07/16/18 17:50 Dose: 650 mg Chlorhexidine Gluconate (Hibiclens For Decolonization -) 1 applic TP HS JEOVANY Last Admin: 07/16/18 23:00 Dose: 1 applic Heparin Sodium (Porcine) (Heparin -) 3,000 unit 40 unit/kg (3000 unit) IVPUSH PRN PRN PRN Reason: For aPTT 35 to 45 seconds Heparin Sodium (Porcine) (Heparin -) 6,100 unit 80 unit/kg (6100 unit) IVPUSH PRN PRN PRN Reason: aPTT <35 seconds Heparin Sodium (Porcine) 25, (000 unit/ Sodium Chloride) 500 mls @ 27.27 mls/ hr IV TITR JEOVANY; Protocol Last Titration: 07/17/18 07:09 Dose: 14.71 unit/kg/hr, 22.3 mls/hr Mupirocin (Bactroban Ointment (For Decolonization) -) 1 applic NS BID JEOVANY Stop: 07/20/18 21:59 Last Admin: 07/17/18 10:49 Dose: 1 appful ASSESSMENT/PLAN: A 38 y.o. F w/ PMHx. of VSD surgery in 1996, presents after dizziness and syncopal episode to the ED. Pt. was admitted for unprovoked bilateral PE #Cardiovascular -Tachycardia 2/2 Bilateral PE c/w Heparin drip ICU monitoring CTA positive for b/l PE: left upper lobe anterior segmental artery, right pulmonary artery distally, right posterior basilar, right upper lobe posterior, right middle lobe segmental artery. Troponins trending down peaked at 1.5-->0.30 Echo appreciated: LV normal, impaired LV relaxation, RV severely dilated, RA mildly dilated, moderate TR. f/u Rpt. Echo per IR to evaluate if Pt. still has right heart strain for thrombectomy f/u AM labs: CBC, BMP, Phos, Mag Cardiology(Dr. Chu) and IR consults appreciated #Pulmonary -B/l Submassive PE f/u Pelvic US for fibroids as etiology of submassive PE. c/w Heparin drip, will switch to Pt. saturating well on room air supplemental O2 as needed to keep SpO2 above 90% #F/E/N Regular Diet Pt. receiving weight based Heparin drip Potassium and Magnesium repleted #DVT PPx. c/w Heparin drip, PTT goal 60-80 Dispo: Med/Surg We will continue to follow the patient. Thank you for this consultative opportunity. Visit type - Emergency Visit Emergency Visit: Yes ED Registration Date: 07/15/18 Care time: The patient presented to the Emergency Department on the above date and was hospitalized for further evaluation of their emergent condition. - New Patient This patient is new to me today: No - Critical Care Critical Care patient: No - Discharge Referral Referred to [facility] Med P.C.: No
--- NOTE | 2018-07-17 11:49 | PN ---
Progress Note, Physician History of Present Illness: seen and examined today in nad. no overnight events. no new complaints. denies chest pain or sob currently. - Current Medication List Current Medications: Active Medications Acetaminophen (Tylenol -) 650 mg PO Q6H PRN PRN Reason: PAIN LEVEL 1-5 Last Admin: 07/16/18 17:50 Dose: 650 mg Chlorhexidine Gluconate (Hibiclens For Decolonization -) 1 applic TP HS JEOVANY Last Admin: 07/16/18 23:00 Dose: 1 applic Heparin Sodium (Porcine) (Heparin -) 3,000 unit 40 unit/kg (3000 unit) IVPUSH PRN PRN PRN Reason: For aPTT 35 to 45 seconds Heparin Sodium (Porcine) (Heparin -) 6,100 unit 80 unit/kg (6100 unit) IVPUSH PRN PRN PRN Reason: aPTT <35 seconds Heparin Sodium (Porcine) 25, (000 unit/ Sodium Chloride) 500 mls @ 27.27 mls/ hr IV TITR JEOVANY; Protocol Last Titration: 07/17/18 07:09 Dose: 14.71 unit/kg/hr, 22.3 mls/hr Mupirocin (Bactroban Ointment (For Decolonization) -) 1 applic NS BID JEOVANY Stop: 07/20/18 21:59 Last Admin: 07/17/18 10:49 Dose: 1 appful - Objective Vital Signs: Vital Signs Temperature 98.2 F 07/17/18 10:00 Pulse Rate 77 07/17/18 10:00 Respiratory Rate 19 07/17/18 10:00 Blood Pressure 98/62 07/17/18 10:00 O2 Sat by Pulse Oximetry (%) 100 07/17/18 09:00 Constitutional: Yes: Well Nourished, No Distress, Calm Eyes: Yes: WNL, Conjunctiva Clear, EOM Intact HENT: Yes: WNL, Atraumatic, Normocephalic Neck: Yes: WNL, Supple, Trachea Midline Cardiovascular: Yes: WNL, Regular Rate and Rhythm, S1, S2. No: Bradycardia, Tachycardia, Pulse Irregular, Bruit, JVD, Gallop, Murmur, Rub, S3, S4, Varicosities Respiratory: Yes: Regular, CTA Bilaterally. No: Rales, Rhonchi, Wheezes Gastrointestinal: Yes: Normal Bowel Sounds, Soft. No: Distention, Tenderness Extremities: Yes: WNL Edema: No Peripheral Pulses WNL: Yes Peripheral Pulses: Left Doralis Pedis: 2+, Right Dorsalis Pedis: 2+ Neurological: Yes: Alert, Oriented Psychiatric: Yes: Alert, Oriented Labs: CBC, BMP 07/17/18 05:30 07/17/18 05:30 INR, PTT INR 1.17 (0.83-1.09) H 07/17/18 05:30 - ....Imaging Chest X-ray: Report Reviewed, Image Reviewed EKG: Report Reviewed, Image Reviewed Other: Report Reviewed, Image Reviewed (tele-nsr, sinus tach, pvcs) Assessment/Plan 38 yo F with prior VSD repair at age 17 was admitted after a syncope. While standing she had lightheadedness and passed out. She was SOB after and in ER was hypoxic. A Chest CT showed pulmonary emboli involving multiple segments without RT heart strain. Echocardiogram showed normal LV function with moderate to severe RV hypokinesis and dilation. There is moderate TR and mild RA enlargement. Pulmonary pressure was not elevated as per this study. She is no longer SOB and reports no pain or palpitations. THere is no prior history of clotting, no recent travel or medication use. Multiple b/l Pulmonary embolism with RV strain -receiving Heparin -symptomatically improved -To consider possible thrombolysis given clot burden.
--- NOTE | 2018-07-17 11:52 | PN ---
Teaching Attending Note Name of Resident: Erlin Zamora ATTENDING PHYSICIAN STATEMENT I saw and evaluated the patient. I reviewed the resident's note and discussed the case with the resident. I agree with the resident's findings and plan as documented. SUBJECTIVE: Pt seen and examined in the ICU. Denies shortness of breath, chest pain or palpitations. OBJECTIVE: Vital Signs Period Temp Pulse Resp BP Sys/Castrejon Pulse Ox Last 24 Hr 98 F-98.8 F 66-95 13-24 98-129/62-93 100-100 Intake & Output 07/14/18 07/15/18 07/16/18 07/17/18 23:59 23:59 23:59 23:59 Intake Total 1090 1096.4 175 Output Total 1250 1700 650 Balance -160 -603.6 -475 Weight 75.7 kg Gen: NAD at rest Heart: RRR Lung: decreased breath sounds at the bases Abd: soft, nontender Ext: no edema CBC, BMP 07/17/18 05:30 07/17/18 05:30 INR, PTT INR 1.17 (0.83-1.09) H 07/17/18 05:30 Active Medications Acetaminophen (Tylenol -) 650 mg PO Q6H PRN PRN Reason: PAIN LEVEL 1-5 Last Admin: 07/16/18 17:50 Dose: 650 mg Chlorhexidine Gluconate (Hibiclens For Decolonization -) 1 applic TP HS JEOVANY Last Admin: 07/16/18 23:00 Dose: 1 applic Heparin Sodium (Porcine) (Heparin -) 3,000 unit 40 unit/kg (3000 unit) IVPUSH PRN PRN PRN Reason: For aPTT 35 to 45 seconds Heparin Sodium (Porcine) (Heparin -) 6,100 unit 80 unit/kg (6100 unit) IVPUSH PRN PRN PRN Reason: aPTT <35 seconds Heparin Sodium (Porcine) 25, (000 unit/ Sodium Chloride) 500 mls @ 27.27 mls/ hr IV TITR JEOVANY; Protocol Last Titration: 07/17/18 07:09 Dose: 14.71 unit/kg/hr, 22.3 mls/hr Mupirocin (Bactroban Ointment (For Decolonization) -) 1 applic NS BID JEOVANY Stop: 07/20/18 21:59 Last Admin: 07/17/18 10:49 Dose: 1 appful ASSESSMENT AND PLAN: Acute Submassive Pulmonary Emboli appears to be unprovoked RV Strain Syncope - continue anticoagulation - replete lytes - O2 to keep SpO2 >90% - discuss with IR possible catheter directed thrombolysis - start oral anticoagulant if no invasive procedures planned - can monitor on floor if no thrombolysis
--- NOTE | 2018-07-17 12:18 | PN ---
Physical Exam: SUBJECTIVE: Patient seen and examined at bedside this morning. No acute events overnight. Denies any fevers, chills, chest pain, shortness of breath, abdominal pain, nausea, vomiting, diarrhea, bruising, or bleeding. OBJECTIVE: Vital Signs Period Temp Pulse Resp BP Sys/Csatrejon Pulse Ox Last 24 Hr 98 F-98.8 F 66-95 13-24 98-129/62-93 100-100 GENERAL: Patient is awake, alert, and oriented to person, place, and time. She is resting comfortably in bed with mother at bedside in no acute distress. HEAD: Normocephalic. Tender to light palpation of occiput at midline. EYES: Pupils equal, round and reactive to light and accommodation. Extraocular movements intact. No horizontal or vertical nystagmus noted. Sclerae anicteric. EARS, NOSE, THROAT: Ears normal, nares patent, oropharynx clear without exudates. Moist mucous membranes. NECK: Negative neck pain to palpation or stiffness. Supple, without lymphadenopathy. No thyromegaly or thyroid nodules appreciated. LUNGS: Breath sounds equal, clear to auscultation bilaterally. Good inspiratory effort. No wheezes, and no crackles. No accessory muscle use. HEART: Regular rate and rhythm, +S1 and S2 auscultated. No murmurs or gallops appreciated. ABDOMEN: Soft, nontender to palpation X4 quadrants. Normoactive bowel sounds auscultated X 4 quadrants. No hepatosplenomegaly appreciated. No guarding, no rebound. Rectal: No hemorrhoids, or masses palpated. Minimal light brown stool in rectal vault. No gross blood noted. MUSCULOSKELETAL: Full range of motion in B/L upper and lowed extremities. Strength 5/5 B/L upper extremities in flexion, extension, abduction, adduction. Strength 5/5 lower extremities in hip flexion and extension, knee flexion and extension. 5/5 B/L plantarflexion and dorsiflexion. UPPER EXTREMITIES: 2+ radial pulses. No rashes, or lesions noted. LOWER EXTREMITIES: 2+ dorsalis pedis pulses. No rashes or lesions noted. No calf tenderness B/L. Negative Veronica's sign. No peripheral edema B/L. NEUROLOGICAL: Cranial nerves II-XII intact. No gross focal deficits appreciated. PSYCHIATRIC: Cooperative patient. Appropriate mood and affect upon my encounter today. Laboratory Results - last 24 hr 09/04/18 09/04/18 09/04/18 05:30 05:30 05:30 WBC 4.1 RBC 3.44 L Hgb 9.4 L Hct 29.0 L MCV 84.4 MCH 27.2 MCHC 32.3 RDW 17.1 H Plt Count 170 MPV 8.7 PT with INR INR PTT (Actin FS) 71.4 H Sodium 142 Potassium 3.3 L Chloride 109 H Carbon Dioxide 25 Anion Gap 8 BUN 8 Creatinine 0.6 Creat Clearance w eGFR > 60 Random Glucose 87 Calcium 7.1 L Phosphorus 2.9 Magnesium 1.6 L Ferritin 6.8 L Total Bilirubin 0.3 AST 18 ALT 24 Alkaline Phosphatase 39 L Total Protein 6.0 L Albumin 2.6 L 07/17/18 05:30 WBC RBC Hgb Hct MCV MCH MCHC RDW Plt Count MPV PT with INR 13.20 H INR 1.17 H PTT (Actin FS) Sodium Potassium Chloride Carbon Dioxide Anion Gap BUN Creatinine Creat Clearance w eGFR Random Glucose Calcium Phosphorus Magnesium Ferritin Total Bilirubin AST ALT Alkaline Phosphatase Total Protein Albumin Active Medications Generic Name Dose Route Start Last Admin Trade Name Freq PRN Reason Stop Dose Admin Acetaminophen 650 mg 07/15/18 16:27 07/16/18 17:50 Tylenol - PO 650 mg Q6H PRN Administration PAIN LEVEL 1-5 Chlorhexidine Gluconate 1 applic 07/15/18 22:00 07/16/18 23:00 Hibiclens For Decolonization - TP 1 applic HS JEOVANY Administration Heparin Sodium (Porcine) 3,000 unit 07/15/18 16:42 Heparin - 40 unit/kg (3000 unit) IVPUSH PRN PRN For aPTT 35 to 45 seconds Heparin Sodium (Porcine) 6,100 unit 07/15/18 16:42 Heparin - 80 unit/kg (6100 unit) IVPUSH PRN PRN aPTT <35 seconds Heparin Sodium (Porcine) 25, 500 mls @ 27.27 mls/hr 07/15/18 17:00 07/17/18 07:09 000 unit/ Sodium Chloride IV 14.71 unit/kg/hr TITR JEOVANY 22.3 mls/hr Titration Protocol 18 UNIT/KG/HR Mupirocin 1 applic 07/15/18 22:00 07/17/18 10:49 Bactroban Ointment (For Decolonization) - NS 07/20/18 21:59 1 appful BID JEOVANY Administration Imaging: -EKG showed Sinus tachycardia, RSR prime in lead V1, S1Q3T3 noted. -CT Head showed no evidence of intracrainal hemorrhage. Positive for occipital scalp hematoma midline. -CT Chest showed multiple Pulmonary Emboli in right upper lobe, right posterior basilar, and right middle lobe segmental arteries, right pulmonary artery, left upper lobe anterior segmental artery. -Lower extremity duplex ultrasound showed no evidence of DVT in B/L legs ASSESSMENT/PLAN: 38 year old female with history of VSD repaired in (1996) presents after syncopal episode, and admitted for Pulmonary Embolism. Syncopal episode secondary to Acute sub-massive unprovoked PE -PEsI: high risk -EKG shows evidence of right heart strain. -CT Chest showed multiple pulmonary emboli, without saddle embolus. -Lower extremity ultrasound shows no evidence of DVT B/L. -Patient is saturating 99% on 2L NC. Goal is to maintain oxygen saturation above 90% -No evidence of intracranial hemorrhage on CT head. -Rectal exam performed- no apryl blood noted. Sent for stool occult. -Patient started on Heparin Drip. STAT bolus 80mg/kg given in ED. -Continue maintenance Heparin drip. PTT goal 60-80 -PTT 71.4 today. Hb 9.4 (9.8 yesterday) Hct 29.0 30.4 yesterday) -Pain control with Tylenol 650mg PO Q6 PRN for pain 1-5 -ICU/ Pulmonology consultation (Dr. Freed) appreciated: Will continue heparin, and ICU monitoring. Will discuss possible thrombectomy with IR -Hematology/ Oncolgy consult (Tania Vanegas) appreciated: Will decide between initiating NOAC vs. Coumadin once IR has decided regarding thrombectomy. Will F/U iron studies, ferritin. -F/U IR consult -F/U transvaginal US to identify if fibroids may be possible source of embolus. R/O Acute Coronary Syndrome -EKG showed Sinus tachycardia, RSR prime in lead V1, S1Q3T3 noted. -Troponin 0.41-> 1.50 -> 0.30 -Cardiac echo shows: LV size, thickness, and function normal. Impaired LV relaxation. RV severely dilated. No pericardial effusion. -F/U repeat cardiac echo. -Cardiology consult (Dr. Chu) appreciated: Will continue heparin and consider thrombolysis. FEN -No IV fluids, patient tolerating PO intake -Electrolytes within normal limits. Will follow CMP -Regular diet Prophylaxis -Patient is on Heparin drip Disposition: Continue care in ICU today Visit type - Emergency Visit Emergency Visit: No - New Patient This patient is new to me today: No - Critical Care Critical Care patient: Yes Total Critical Care Time (in minutes): 35 Critical Care Statement: The care of this patient involved high complexity decision making to prevent further life threatening deterioration of the patient 's condition and/or to evaluate & treat vital organ system(s) failure or risk of failure. - Discharge Referral Referred to [facility] Med [facility] No
[2018-07-17 12:48] VITALS: BMI 27.6
--- NOTE | 2018-07-17 16:31 | EKG ---
Test Reason : Blood Pressure : / mmHG Vent. Rate : 098 BPM Atrial Rate : 098 BPM P-R Int : 126 ms QRS Dur : 082 ms QT Int : 356 ms P-R-T Axes : 034 050 016 degrees QTc Int : 454 ms NORMAL SINUS RHYTHM NONSPECIFIC T WAVE ABNORMALITY ABNORMAL ECG NO PREVIOUS ECGS AVAILABLE Confirmed by Domenic Romero ([id number]) on 07/17/2018 4:31:35 PM Referred By: Confirmed By:Domenic Romero
--- NOTE | 2018-07-17 18:31 | PN ---
Teaching Attending Note Name of Resident: Kike Steinberg ATTENDING PHYSICIAN STATEMENT I saw and evaluated the patient. I reviewed the resident's note and discussed the case with the resident. I agree with the resident's findings and plan as documented. SUBJECTIVE: Patient is doing better with no acute distress. OBJECTIVE: Vital Signs Temperature 98.4 F 07/17/18 14:00 Pulse Rate 91 H 07/17/18 18:00 Respiratory Rate 18 07/17/18 18:00 Blood Pressure 130/78 07/17/18 18:00 O2 Sat by Pulse Oximetry (%) 100 07/17/18 09:00 CBCD WBC 4.1 K/mm3 (4.0-10.0) 07/17/18 05:30 RBC 3.44 M/mm3 (3.60-5.2) L 07/17/18 05:30 Hgb 9.4 GM/dL (10.7-15.3) L 07/17/18 05:30 Hct 29.0 % (32.4-45.2) L 07/17/18 05:30 MCV 84.4 fl (80-96) 07/17/18 05:30 MCHC 32.3 g/dl (32.0-36.0) 07/17/18 05:30 RDW 17.1 % (11.6-15.6) H 07/17/18 05:30 Plt Count 170 K/MM3 (134-434) 07/17/18 05:30 MPV 8.7 fl (7.5-11.1) 07/17/18 05:30 CMP Sodium 142 mmol/L (136-145) 07/17/18 05:30 Potassium 3.3 mmol/L (3.5-5.1) L 07/17/18 05:30 Chloride 109 mmol/L (98-107) H 07/17/18 05:30 Carbon Dioxide 25 mmol/L (21-32) 07/17/18 05:30 Anion Gap 8 MMOL/L (8-16) 07/17/18 05:30 BUN 8 mg/dL (7-18) 07/17/18 05:30 Creatinine 0.6 mg/dL (0.55-1.02) 07/17/18 05:30 Creat Clearance w eGFR > 60 (>60) 09/04/18 05:30 Random Glucose 87 mg/dL (74-106) 07/17/18 05:30 Calcium 7.1 mg/dL (8.5-10.1) L 07/17/18 05:30 Total Bilirubin 0.3 mg/dL (0.2-1.0) 07/17/18 05:30 AST 18 U/L (15-37) 07/17/18 05:30 ALT 24 U/L (12-78) 07/17/18 05:30 Alkaline Phosphatase 39 U/L (45-117) L 07/17/18 05:30 Total Protein 6.0 g/dl (6.4-8.2) L 07/17/18 05:30 Albumin 2.6 g/dl (3.4-5.0) L 07/17/18 05:30 CARDIAC ENZYMES Creatine Kinase 111 IU/L (26-192) 07/16/18 10:25 Troponin I 0.30 ng/ml (0.00-0.05) H 07/16/18 10:25 Current Medications Generic Name Dose Route Start Last Admin Trade Name Freq PRN Reason Stop Dose Admin Acetaminophen 650 mg 07/15/18 16:27 07/16/18 17:50 Tylenol - PO 650 mg Q6H PRN Administration PAIN LEVEL 1-5 Chlorhexidine Gluconate 1 applic 07/15/18 22:00 07/16/18 23:00 Hibiclens For Decolonization - TP 1 applic HS JEOVANY Administration Heparin Sodium (Porcine) 3,000 unit 07/15/18 16:42 Heparin - 40 unit/kg (3000 unit) IVPUSH PRN PRN For aPTT 35 to 45 seconds Heparin Sodium (Porcine) 6,100 unit 07/15/18 16:42 Heparin - 80 unit/kg (6100 unit) IVPUSH PRN PRN aPTT <35 seconds Heparin Sodium (Porcine) 25, 500 mls @ 27.27 mls/hr 07/15/18 17:00 07/17/18 13:27 000 unit/ Sodium Chloride IV 14.71 unit/kg/hr TITR JEOVANY 22.3 mls/hr Titration Protocol 18 UNIT/KG/HR Mupirocin 1 applic 07/15/18 22:00 07/17/18 10:49 Bactroban Ointment (For Decolonization) - NS 07/20/18 21:59 1 appful BID JEOVANY Administration Home Medications Medication Instructions Recorded NK [No Known Home Medication] 07/15/18 NK [No Known Home Medication] 07/15/18 PE: CTABL CVS:S1S2 positive rest of PE: per resident's note Clinical information given: syncope; evaluate for pulmonary embolism Acute emboli identified within the right upper lobe posterior segmental , right posterior basilar, right middle lobe segmental arteries. A small linear acute embolus is seen within the right pulmonary artery distally. An acute embolus is seen within the left upper lobe anterior segmental artery. No infiltrate or pleural effusion is seen. There is no definite cardiac enlargement. No definite CT evidence of right heart strain is seen. Correlate with echocardiography. There is no pericardial effusion. Status post median sternotomy. No aortic aneurysm is noted. There is no obvious lymphadenopathy. The visualized osseous structures demonstrate no obvious acute pathology. No prior CT studies are available at this facility for direct comparison. Impression: Acute pulmonary embolism is identified as discussed above. Echo: Right ventricle is severely dilated. , left atriak size is normal ASSESSMENT AND PLAN: This is a 38 year old woman with a history of a VSD s/p repair in 1996 who presented to the ED with chest and back pain after a witnessed syncopal episode. # Acute BL pulmonary embolism, unprovoked;as mentioned above, in ICU, on IV heparin , on Oxygen to keep saturation >90%, Echocardiogram reviewed , will repeat echo today, follow the echo. Pulmonary/critical care, hematology consults appreciated. as per IR , no indication for thrombectomy at this time. oral anticoagulation if ok with pulmonary and hematology # Hypokalemia and hypomagnesemia : repleted by ICU team # Syncope secondary to PE in ICu, will monitor # History of VSD and repair DVT Px : heparin drip
--- NOTE | 2018-07-17 18:33 | PN ---
Physical Exam: SUBJECTIVE: Patient seen and examined at bed side this morning. Patient was sitting in a chair. No complaints. Denies chest pain, sob, cough, palpitation, abdominal pain, nausea or vomiting. Bowel/Bladder habit normal. Sleep/Appetite normal. No acute overnight events. OBJECTIVE: Vital Signs Period Temp Pulse Resp BP Sys/Castrejon Pulse Ox Last 24 Hr 98 F-98.6 F 66-92 13-22 98-130/62-93 100-100 GENERAL: Young female, sitting comfortably in a chair, awake, alert, oriented x 3, in no acute distress. HEAD: Normal with no signs of trauma. EYES: EOM intact, no pallor or icterus. . ENT: Ears normal, moist mucous membranes. NECK: Supple. LUNGS: B/L Breath sounds equal, decreased BS, no wheezes, no crackles, no accessory muscle use. HEART: Regular rate and rhythm, S1, S2 without murmur. ABDOMEN: Soft, nontender, nondistended, normoactive bowel sounds, no guarding, no rebound, no hepatosplenomegaly, no masses. EXTREMITIES: 2+ pulses, warm, well-perfused, no edema. NEUROLOGICAL: No facial droop. Normal speech, gait not observed. PSYCH: Normal mood, normal affect. SKIN: Warm, dry, normal turgor, no rashes or lesions noted Laboratory Results - last 24 hr 07/17/18 07/17/18 07/17/18 05:30 05:30 05:30 WBC 4.1 RBC 3.44 L Hgb 9.4 L Hct 29.0 L MCV 84.4 MCH 27.2 MCHC 32.3 RDW 17.1 H Plt Count 170 MPV 8.7 PT with INR INR PTT (Actin FS) 71.4 H Sodium 142 Potassium 3.3 L Chloride 109 H Carbon Dioxide 25 Anion Gap 8 BUN 8 Creatinine 0.6 Creat Clearance w eGFR > 60 POC Glucometer Random Glucose 87 Calcium 7.1 L Phosphorus 2.9 Magnesium 1.6 L Ferritin 6.8 L Total Bilirubin 0.3 AST 18 ALT 24 Alkaline Phosphatase 39 L Total Protein 6.0 L Albumin 2.6 L 07/17/18 07/17/18 07/17/18 05:30 06:57 12:40 WBC RBC Hgb Hct MCV MCH MCHC RDW Plt Count MPV PT with INR 13.20 H INR 1.17 H PTT (Actin FS) 60.8 H Sodium Potassium Chloride Carbon Dioxide Anion Gap BUN Creatinine Creat Clearance w eGFR POC Glucometer [phone] Random Glucose Calcium Phosphorus Magnesium Ferritin Total Bilirubin AST ALT Alkaline Phosphatase Total Protein Albumin Active Medications Generic Name Dose Route Start Last Admin Trade Name Freq PRN Reason Stop Dose Admin Acetaminophen 650 mg 07/15/18 16:27 07/16/18 17:50 Tylenol - PO 650 mg Q6H PRN Administration PAIN LEVEL 1-5 Chlorhexidine Gluconate 1 applic 07/15/18 22:00 07/16/18 23:00 Hibiclens For Decolonization - TP 1 applic HS JEOVANY Administration Heparin Sodium (Porcine) 3,000 unit 07/15/18 16:42 Heparin - 40 unit/kg (3000 unit) IVPUSH PRN PRN For aPTT 35 to 45 seconds Heparin Sodium (Porcine) 6,100 unit 07/15/18 16:42 Heparin - 80 unit/kg (6100 unit) IVPUSH PRN PRN aPTT <35 seconds Heparin Sodium (Porcine) 25, 500 mls @ 27.27 mls/hr 07/15/18 17:00 07/17/18 13:27 000 unit/ Sodium Chloride IV 14.71 unit/kg/hr TITR JEOVANY 22.3 mls/hr Titration Protocol 18 UNIT/KG/HR Mupirocin 1 applic 07/15/18 22:00 07/17/18 10:49 Bactroban Ointment (For Decolonization) - NS 07/20/18 21:59 1 appful BID JEOVANY Administration CT Chest showed multiple Pulmonary Emboli in right upper lobe, right posterior basilar, and right middle lobe segmental arteries, right pulmonary artery, left upper lobe anterior segmental artery. Lower extremity duplex ultrasound showed no evidence of DVT in B/L legs 38 year old female with history of VSD repaired in 1996 presented to the ED with a syncopal episode admitted for further evaluation and treatment. ASSESSMENT: Acute sub-massive unprovoked PE PLAN: Unprovoked PE No h/o of recent travel, no h/o Oral contraceptive use, No h/o HRT, no h/o malignancy in the family. Was brought in for syncopal episode, found to have multiple Pulmonary Emboli in multiple areas in CT chest. Currently admitted in ICU, on Heparin drip Awaiting for IR for possible thrombectomy Then to decide if she should be on Coumadin vs NOAC's. Etiology unknown. Work up being done. USG of uterus shows enlarged uterus 15.8 x 12.2 x 10.3 with a fibroid measuring 11.1 x 9.2 x 8.2cm MRI of pelvis recommended. Would consider Tilting Saw Operator eval. Plan of care explained to the patient. She verbalized understanding. Case discussed with Dr. Marin. Visit type - Emergency Visit Emergency Visit: Yes ED Registration Date: 07/15/18 Care time: The patient presented to the Emergency Department on the above date and was hospitalized for further evaluation of their emergent condition. - New Patient This patient is new to me today: Yes Date on this admission: 07/17/18 - Critical Care Critical Care patient: Yes Total Critical Care Time (in minutes): 45 Critical Care Statement: The care of this patient involved high complexity decision making to prevent further life threatening deterioration of the patient 's condition and/or to evaluate & treat vital organ system(s) failure or risk of failure. - Discharge Referral Referred to [facility] Med [facility].: No
[2018-07-17] MEDS: CHLORHEXIDINE GLUCONATE 4% CLEANSER FOR DECOLONIZATION TP SCH (21:37)
[2018-07-18 06:06] LABS: SERUM IRON SATURATION 9 % (15-55); TOTAL IRON BINDING CAPACITY 303 ug/dL (250-450); UIBC 276 ug/dL (131-425)
[2018-07-18 06:19] LABS: HEMATOCRIT 29.6 % (32.4-45.2); HEMOGLOBIN 9.5 GM/dL (10.7-15.3); MCH 27.1 pg (25.7-33.7); MCHC 31.9 g/dl (32.0-36.0); MEAN CELL VOLUME 84.8 fl (80-96); MEAN PLT VOLUME 8.8 fl (7.5-11.1); PLATELET COUNT 171 K/MM3 (134-434); RBC 3.49 M/mm3 (3.60-5.2); RDW 17.1 % (11.6-15.6); WHITE BLOOD COUNT 3.6 K/mm3 (4.0-10.0)
[2018-07-18 06:46] LABS: CHLORIDE 109 mmol/L (98-107); POTASSIUM 3.8 mmol/L (3.5-5.1); SODIUM 141 mmol/L (136-145)
[2018-07-18 06:52] LABS: ALBUMIN 2.6 g/dl (3.4-5.0); ALK PHOS 41 U/L (45-117); ANION GAP 7 MMOL/L (8-16); BILIRUBIN,TOTAL 0.2 mg/dL (0.2-1.0); BLOOD UREA NITROGEN 8 mg/dL (7-18); CALCIUM 7.7 mg/dL (8.5-10.1); CO2 25 mmol/L (21-32); CREATININE 0.6 mg/dL (0.55-1.02); GLUCOSE,RANDOM 94 mg/dL (74-106); MAGNESIUM 1.7 mg/dL (1.8-2.4); PHOSPHOROUS 4.3 mg/dL (2.5-4.9); SGOT/AST 13 U/L (15-37); SGPT/ALT 22 U/L (12-78); TOT PROT 5.9 g/dl (6.4-8.2)
[2018-07-18] MEDS ORDERED: MAGNESIUM OXIDE 400 MG TABLET (FP) PO ONE (09:00)
[2018-07-18] MEDS: MUPIROCIN 2% TOPICAL OINTMENT FOR DECOLONIZATION NS SCH ×2 (09:32→21:31)
--- NOTE | 2018-07-18 10:21 | PN ---
Physical Exam: SUBJECTIVE: Patient seen and examined at bed side this morning. Just had breakfast, feels well. Denies chest pain, sob, cough, palpitation, abdominal pain, nausea or vomiting. Bowel/Bladder habit normal. Sleep/Appetite normal. No acute overnight events. OBJECTIVE: Vital Signs Period Temp Pulse Resp BP Sys/Castrejon Pulse Ox Last 24 Hr 97.8 F-98.6 F 73-92 13-25 103-130/62-92 99-100 GENERAL: Young female, sitting comfortably in a chair, awake, alert, oriented x 3, in no acute distress. HEAD: Normal with no signs of trauma. EYES: EOM intact, no pallor or icterus. . ENT: Ears normal, moist mucous membranes. NECK: Supple. LUNGS: B/L Breath sounds equal, decreased BS, no wheezes, no crackles, no accessory muscle use. HEART: Regular rate and rhythm, S1, S2 without murmur. ABDOMEN: Soft, nontender, nondistended, normoactive bowel sounds, no guarding, no rebound, no hepatosplenomegaly, no masses. EXTREMITIES: 2+ pulses, warm, well-perfused, no edema. NEUROLOGICAL: No facial droop. Normal speech, gait not observed. PSYCH: Normal mood, normal affect. SKIN: Warm, dry, normal turgor, no rashes or lesions noted Laboratory Results - last 24 hr 07/17/18 07/17/18 07/17/18 05:30 06:57 12:40 WBC RBC Hgb Hct MCV MCH MCHC RDW Plt Count MPV PTT (Actin FS) 60.8 H Sodium Potassium Chloride Carbon Dioxide Anion Gap BUN Creatinine Creat Clearance w eGFR POC Glucometer [phone] Random Glucose Calcium Phosphorus Magnesium Iron 27 TIBC 303 Iron Saturation 9 L Transferrin 252 Total Bilirubin AST ALT Alkaline Phosphatase Total Protein Albumin 07/17/18 07/18/18 07/18/18 21:30 05:30 05:30 WBC 3.6 L RBC 3.49 L Hgb 9.5 L Hct 29.6 L MCV 84.8 MCH 27.1 MCHC 31.9 L RDW 17.1 H Plt Count 171 MPV 8.8 PTT (Actin FS) 52.0 H Sodium 141 Potassium 3.8 Chloride 109 H Carbon Dioxide 25 Anion Gap 7 L BUN 8 Creatinine 0.6 Creat Clearance w eGFR > 60 POC Glucometer Random Glucose 94 Calcium 7.7 L Phosphorus 4.3 Magnesium 1.7 L Iron TIBC Iron Saturation Transferrin Total Bilirubin 0.2 AST 13 L ALT 22 Alkaline Phosphatase 41 L Total Protein 5.9 L Albumin 2.6 L 07/18/18 05:30 WBC RBC Hgb Hct MCV MCH MCHC RDW Plt Count MPV PTT (Actin FS) 54.1 H Sodium Potassium Chloride Carbon Dioxide Anion Gap BUN Creatinine Creat Clearance w eGFR POC Glucometer Random Glucose Calcium Phosphorus Magnesium Iron TIBC Iron Saturation Transferrin Total Bilirubin AST ALT Alkaline Phosphatase Total Protein Albumin Active Medications Generic Name Dose Route Start Last Admin Trade Name Freq PRN Reason Stop Dose Admin Acetaminophen 650 mg 07/15/18 16:27 07/16/18 17:50 Tylenol - PO 650 mg Q6H PRN Administration PAIN LEVEL 1-5 Chlorhexidine Gluconate 1 applic 07/15/18 22:00 07/17/18 21:37 Hibiclens For Decolonization - TP 1 applic HS JEOVANY Administration Heparin Sodium (Porcine) 3,000 unit 07/15/18 16:42 Heparin - 40 unit/kg (3000 unit) IVPUSH PRN PRN For aPTT 35 to 45 seconds Heparin Sodium (Porcine) 6,100 unit 07/15/18 16:42 Heparin - 80 unit/kg (6100 unit) IVPUSH PRN PRN aPTT <35 seconds Heparin Sodium (Porcine) 25, 500 mls @ 27.27 mls/hr 07/15/18 17:00 07/18/18 00:00 000 unit/ Sodium Chloride IV 14.71 unit/kg/hr TITR JEOVANY 22.3 mls/hr Titration Protocol 18 UNIT/KG/HR Mupirocin 1 applic 07/15/18 22:00 07/18/18 09:32 Bactroban Ointment (For Decolonization) - NS 07/20/18 21:59 1 applic BID JEOVANY Administration CT Chest showed multiple Pulmonary Emboli in right upper lobe, right posterior basilar, and right middle lobe segmental arteries, right pulmonary artery, left upper lobe anterior segmental artery. Lower extremity duplex ultrasound showed no evidence of DVT in B/L legs 38 year old female with history of VSD repaired in 1996 presented to the ED with a syncopal episode admitted for further evaluation and treatment. ASSESSMENT: Acute sub-massive unprovoked PE Fibroid uterus: USG of uterus shows enlarged uterus 15.8 x 12.2 x 10.3 with a fibroid measuring 11.1 x 9.2 x 8.2cm MRI of pelvis recommended. Would consider Construction Person eval. PLAN: Unprovoked PE Etiology unknown. Has no h/o of recent travel, no h/o Oral contraceptive use , No h/o HRT, no h/o malignancy in the family. Was brought in for syncopal episode, found to have multiple Pulmonary Emboli in multiple areas in CT chest. Currently admitted in ICU, on Heparin drip Awaiting for IR for possible thrombectomy Then to decide if she should be on Coumadin vs NOAC's. Etiology unknown. Thrombophilic Work up needs to be done as outpatient. Plan of care explained to the patient. She verbalized understanding. Case discussed with Dr. Mancini. Visit type - Emergency Visit Emergency Visit: Yes ED Registration Date: 07/15/18 Care time: The patient presented to the Emergency Department on the above date and was hospitalized for further evaluation of their emergent condition. - New Patient This patient is new to me today: Yes Date on this admission: 07/17/18 - Critical Care Critical Care patient: Yes Total Critical Care Time (in minutes): 45 Critical Care Statement: The care of this patient involved high complexity decision making to prevent further life threatening deterioration of the patient 's condition and/or to evaluate & treat vital organ system(s) failure or risk of failure.
--- NOTE | 2018-07-18 11:42 | PN ---
Teaching Attending Note Name of Resident: Erlin Zamora ATTENDING PHYSICIAN STATEMENT I saw and evaluated the patient. I reviewed the resident's note and discussed the case with the resident. I agree with the resident's findings and plan as documented. SUBJECTIVE: Pt seen and examined in the ICU. Denies shortness of breath, chest pain or palpitations. Repeat echocardiogram done this AM, read pending. Pelvic ultrasound showing large fibroid uterus. OBJECTIVE: Vital Signs Period Temp Pulse Resp BP Sys/Castrejon Pulse Ox Last 24 Hr 97.8 F-98.6 F 73-92 13-25 103-130/62-92 99-100 Intake & Output 07/15/18 07/16/18 07/17/18 07/18/18 23:59 23:59 23:59 23:59 Intake Total 1090 1096.4 902.6 517.6 Output Total 1250 1700 1150 Balance -160 -603.6 -247.4 517.6 Weight 75.7 kg 75.296 kg 78.727 kg Gen: NAD at rest Heart: RRR Lung: decreased breath sounds at the bases Abd: soft, nontender Ext: no edema CBC, BMP 07/18/18 05:30 07/18/18 05:30 Active Medications Acetaminophen (Tylenol -) 650 mg PO Q6H PRN PRN Reason: PAIN LEVEL 1-5 Last Admin: 07/16/18 17:50 Dose: 650 mg Chlorhexidine Gluconate (Hibiclens For Decolonization -) 1 applic TP HS JEOVANY Last Admin: 07/17/18 21:37 Dose: 1 applic Heparin Sodium (Porcine) (Heparin -) 3,000 unit 40 unit/kg (3000 unit) IVPUSH PRN PRN PRN Reason: For aPTT 35 to 45 seconds Heparin Sodium (Porcine) (Heparin -) 6,100 unit 80 unit/kg (6100 unit) IVPUSH PRN PRN PRN Reason: aPTT <35 seconds Heparin Sodium (Porcine) 25, (000 unit/ Sodium Chloride) 500 mls @ 27.27 mls/ hr IV TITR JEOVANY; Protocol Last Titration: 07/18/18 00:00 Dose: 14.71 unit/kg/hr, 22.3 mls/hr Mupirocin (Bactroban Ointment (For Decolonization) -) 1 applic NS BID JEOVANY Stop: 07/20/18 21:59 Last Admin: 07/18/18 09:32 Dose: 1 applic ASSESSMENT AND PLAN: Acute Submassive Pulmonary Emboli appears to be unprovoked RV Strain Syncope Large Leiomyoma - continue anticoagulation - f/u echocardiogram - O2 to keep SpO2 >90% - discuss with IR possible catheter directed thrombolysis - start oral anticoagulant if no invasive procedures planned - can monitor on floor if no thrombolysis
--- NOTE | 2018-07-18 11:53 | PN ---
Physical Exam: SUBJECTIVE: Patient seen and examined. No acute events overnight. Had pelvic US done last night. Pt. complained of bilateral neck pain that is unaffected by swallowing. Pt. is able to move head with full ROM and against resistance. Pt. given Tylenol for neck pain with good effect. Pt. is c/o left calf pain this afternoon. Rpt. duplex shows no evidence of DVT. Pt. was given Tylenol for pain. OBJECTIVE: Vital Signs Period Temp Pulse Resp BP Sys/Castrejon Pulse Ox Last 24 Hr 97.8 F-98.6 F 73-92 13-25 103-130/62-92 99-100 GENERAL: The patient is awake, alert, and fully oriented, in no acute distress. HEAD: Normal with no signs of trauma. ENT: moist mucous membranes. NECK: mild neck tenderness to palpation. Full ROM passively and against resistance w/ no increase in tenderness. No carotid bruit. LUNGS: Breath sounds equal, clear to auscultation bilaterally, no wheezes, no crackles, no accessory muscle use. HEART: Regular rate and rhythm, S1, S2 without murmur EXTREMITIES: 2+ dorsal pedal pulses, warm, well-perfused, no edema, no calf tenderness. PSYCH: Normal mood, normal affect. SKIN: Warm, dry, normal turgor, no rashes or lesions noted Laboratory Results - last 24 hr 07/17/18 07/17/18 07/17/18 05:30 06:57 12:40 WBC RBC Hgb Hct MCV MCH MCHC RDW Plt Count MPV PTT (Actin FS) 60.8 H Sodium Potassium Chloride Carbon Dioxide Anion Gap BUN Creatinine Creat Clearance w eGFR POC Glucometer [phone] Random Glucose Calcium Phosphorus Magnesium Iron 27 TIBC 303 Iron Saturation 9 L Transferrin 252 Total Bilirubin AST ALT Alkaline Phosphatase Total Protein Albumin 07/17/18 07/18/18 07/18/18 21:30 05:30 05:30 WBC 3.6 L RBC 3.49 L Hgb 9.5 L Hct 29.6 L MCV 84.8 MCH 27.1 MCHC 31.9 L RDW 17.1 H Plt Count 171 MPV 8.8 PTT (Actin FS) 52.0 H Sodium 141 Potassium 3.8 Chloride 109 H Carbon Dioxide 25 Anion Gap 7 L BUN 8 Creatinine 0.6 Creat Clearance w eGFR > 60 POC Glucometer Random Glucose 94 Calcium 7.7 L Phosphorus 4.3 Magnesium 1.7 L Iron TIBC Iron Saturation Transferrin Total Bilirubin 0.2 AST 13 L ALT 22 Alkaline Phosphatase 41 L Total Protein 5.9 L Albumin 2.6 L 07/18/18 05:30 WBC RBC Hgb Hct MCV MCH MCHC RDW Plt Count MPV PTT (Actin FS) 54.1 H Sodium Potassium Chloride Carbon Dioxide Anion Gap BUN Creatinine Creat Clearance w eGFR POC Glucometer Random Glucose Calcium Phosphorus Magnesium Iron TIBC Iron Saturation Transferrin Total Bilirubin AST ALT Alkaline Phosphatase Total Protein Albumin Active Medications Current Medications Acetaminophen (Tylenol -) 650 mg PO Q6H PRN PRN Reason: PAIN LEVEL 1-5 Last Admin: 07/16/18 17:50 Dose: 650 mg Chlorhexidine Gluconate (Hibiclens For Decolonization -) 1 applic TP HS JEOVANY Last Admin: 07/17/18 21:37 Dose: 1 applic Heparin Sodium (Porcine) (Heparin -) 3,000 unit 40 unit/kg (3000 unit) IVPUSH PRN PRN PRN Reason: For aPTT 35 to 45 seconds Heparin Sodium (Porcine) (Heparin -) 6,100 unit 80 unit/kg (6100 unit) IVPUSH PRN PRN PRN Reason: aPTT <35 seconds Heparin Sodium (Porcine) 25, (000 unit/ Sodium Chloride) 500 mls @ 27.27 mls/ hr IV TITR JEOVANY; Protocol Last Titration: 07/18/18 00:00 Dose: 14.71 unit/kg/hr, 22.3 mls/hr Mupirocin (Bactroban Ointment (For Decolonization) -) 1 applic NS BID JEOVANY Stop: 07/20/18 21:59 Last Admin: 07/18/18 09:32 Dose: 1 applic ASSESSMENT/PLAN: A 38 y.o. F w/ PMHx. of VSD surgery in 1996, presents after dizziness and syncopal episode to the ED. Pt. was admitted for unprovoked bilateral PE #Cardiovascular -Tachycardia 2/2 Bilateral PE c/w Heparin drip ICU monitoring CTA positive for b/l PE: left upper lobe anterior segmental artery, right pulmonary artery distally, right posterior basilar, right upper lobe posterior, right middle lobe segmental artery. Troponins trending down peaked at 1.5-->0.30 Echo appreciated: LV normal, impaired LV relaxation, RV severely dilated, RA mildly dilated, moderate TR. Rpt. echo show improving cardiac fxn. RV is moderately dilated and fxn is mildly reduced, mild MR and AR, moderate TR, LV is normal in EF, wall motion and function. IR will not be performing thrombectomy procedure as Rpt. echo shows resolving cardiac function. f/u AM labs: CBC, BMP, Phos, Mag Cardiology(Dr. Chu) and IR consults appreciated -Anemia c/w Iron tablets anemia workup as outpatient Fibroid uterus and Hx. of heavy menses is likely contributory to anemia. #Pulmonary -B/l Submassive PE f/u Pelvic US for fibroids as etiology of submassive PE. c/w Heparin drip, will discuss with primary team for NOAC vs. Coumadin Pt. saturating well on room air supplemental O2 as needed to keep SpO2 above 90% #Gynecology -Fibroid Uterus US showing Uterus size of 15.8 x 12.2 x 10.3 cm; Fibroid size was measured 11.1 x 9.1 x 8.2 cm. F/U MRI is recommended for outpatient consultation in addition to Gynecology consultation. #F/E/N Regular Diet Pt. receiving weight based Heparin drip Magnesium repleted #DVT PPx. PTT is subtherapeutic at 49.6, Pt. bolused with 1,000 units of Heparin. Rpt duplex (07/18/18) showed no evidence of DVT c/w Heparin drip, PTT goal 60-80 monitor PTT especially because when aPTT is between 46-75, the protocol says not to change the Heparin drip. Will bridge to Coumadin as per primary team. Dispo: Med/Surg We will continue to follow the patient. Thank you for this consultative opportunity. Visit type - Emergency Visit Emergency Visit: Yes ED Registration Date: 07/15/18 Care time: The patient presented to the Emergency Department on the above date and was hospitalized for further evaluation of their emergent condition. - New Patient This patient is new to me today: No - Critical Care Critical Care patient: No - Discharge Referral [facility]erred to [facility] Med P.C.: No
[2018-07-18] MEDS ORDERED: HEPARIN NA (PORCINE) 5,000 UNITS/ML 1ML VIAL IVPUSH PRN (13:20)
--- NOTE | 2018-07-18 13:27 | PN ---
Teaching Attending Note Name of Resident: Kike Steinberg ATTENDING PHYSICIAN STATEMENT I saw and evaluated the patient. I reviewed the resident's note and discussed the case with the resident. I agree with the resident's findings and plan as documented. SUBJECTIVE: No fever or chills . No SOB or CP , no light headedness. denies any bleed but reports that her menstrual period to be heavy , lasts for 5 days . OBJECTIVE: NAD Cv: RRR, no MRG. No JVD Lungs: CTAB EXt : no edema or erythema ASSESSMENT AND PLAN: 38 y/o lady with VSD repair who presented with chest pain and was found to have bilateral Pes. 1- Bilateral Unprovoked PEs . hemodynamically stable with no symptoms - echo 07/15 reviewed. dilated RV with decreased EF - cont heparin gtt for now , pending repeat Echo - will d/w IR pending echo results - if no intervention is indicated, then will start fci AC. her options of NOACS/coumadin /lovenox were d/w her. she will need to d/w family - hypercoagulable w/u is needed as out pt -She understands that heavy menses , might get heavier, and she agrees to take risk as benefit of AC overweigh risk st this stage 2- Anemia: iron def anemia: likely due to heavy menses form fibroids. denies any GI bleed. 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 might be able to dc today if no intervention and NOACs are started. otherwise need to be bridged to coumadin
[2018-07-18] MEDS: ACETAMINOPHEN 325 MG TABLET (FP) PO PRN (13:31)
--- NOTE | 2018-07-18 13:43 | ECHO ---
Name: GRIFFIN MAURA Exam:Adult Echocardiogram Study Date: 07/18/2018 08:34 AM Age: 38 yrs Reason For Study: evaluate right heart strain Height: 65 in Weight: 166 lb BSA: 1.8 m2 MMode/2D Measurements & Calculations IVSd: 0.91 cm Ao root diam: 2.7 cm LVIDd: 4.7 cm LA dimension: 3.3 cm LVIDs: 3.1 cm LVPWd: 0.82 cm LVPWs: 1.4 cm EDV(Teich): 104.9 ml ESV([facility]): 38.8 ml RV S Mario: 13.0 cm/sec Doppler Measurements & Calculations MV E max mario: 69.1 cm/sec Ao V2 max: 115.7 cm/sec MV A max mario: 65.6 cm/sec Ao max P.4 mmHg MV E/A: 1.1 AI P1/2t: 430.4 msec MV dec time: 0.20 sec AI max mario: 298.2 cm/sec LV V1 max P.9 mmHg AI max P.6 mmHg LV V1 max: 85.4 cm/sec AI dec slope: 202.9 cm/sec2 TR max mario: 243.8 cm/sec PA V2 max: 90.3 cm/sec TR max P.8 mmHg PA max P.3 mmHg RVSP(TR): 33.8 mmHg Med Peak E' Mario: 8.1 cm/sec RAP systole: 10.0 mmHg Med E/e': 8.5 Lat Peak E' Mario: 12.6 cm/sec Lat E/e': 5.5 Procedure A two-dimensional transthoracic echocardiogram with color flow and Doppler was performed. Left Ventricle The left ventricular size, thickness and function are normal. The left ventricular ejection fraction is normal. The left ventricular wall motion is normal. Right Ventricle The right ventricle is moderately dilated. The right ventricle is not well visualized. The right vent ricular systolic function is mildly reduced. Mitral Valve There is mild mitral valve thickening. No significant mitral valve stenosis. There is mild mitral regurgitation. Tricuspid Valve There is mild tricuspid valve thickening. There is no tricuspid stenosis. There is moderate tricuspid regurgitation. Right ventricular systolic pressure is normal. Aortic Valve Mild aortic regurgitation. Great Vessels The aortic root is normal size. Pericardium/Pleura There is no pericardial effusion. Interpretation Summary The left ventricular size, thickness and function are normal The left ventricular ejection fraction is normal. The left ventricular wall motion is normal. Right ventricular systolic pressure is normal. There is mild mitral regurgitation. Mild aortic regurgitation. There is moderate tricuspid regurgitation. The right ventricle is moderately dilated. The right ventricular systolic function is mildly reduced. The right ventricle is not well visualized. The aortic root is normal size. MD Pernell Mcclain 07/18/2018 01:11 PM
--- NOTE | 2018-07-18 15:18 | PN ---
Progress Note, Physician History of Present Illness: seen and examined today in nad. had LE pain today, doppler was done. no other new complaints. - Current Medication List Current Medications: Active Medications Acetaminophen (Tylenol -) 650 mg PO Q6H PRN PRN Reason: PAIN LEVEL 1-5 Last Admin: 07/18/18 13:31 Dose: 650 mg Chlorhexidine Gluconate (Hibiclens For Decolonization -) 1 applic TP HS JEOVANY Last Admin: 07/17/18 21:37 Dose: 1 applic Docusate Sodium (Colace -) 100 mg PO DAILY JEOVANY Ferrous Sulfate (Feosol -) 325 mg PO BID JEOVANY Heparin Sodium (Porcine) (Heparin -) 3,000 unit 40 unit/kg (3000 unit) IVPUSH PRN PRN PRN Reason: For aPTT 35 to 45 seconds Heparin Sodium (Porcine) (Heparin -) 6,100 unit 80 unit/kg (6100 unit) IVPUSH PRN PRN PRN Reason: aPTT <35 seconds Heparin Sodium (Porcine) (Heparin -) 1,000 unit IVPUSH PRN PRN PRN Reason: Heparin Last Admin: 07/18/18 14:15 Dose: 1,000 unit Heparin Sodium (Porcine) 25, (000 unit/ Sodium Chloride) 500 mls @ 27.27 mls/ hr IV TITR JEOVANY; Protocol Last Titration: 07/18/18 00:00 Dose: 14.71 unit/kg/hr, 22.3 mls/hr Mupirocin (Bactroban Ointment (For Decolonization) -) 1 applic NS BID JEOVANY Stop: 07/20/18 21:59 Last Admin: 07/18/18 09:32 Dose: 1 applic - Objective Vital Signs: Vital Signs Temperature 98.1 F 07/18/18 14:00 Pulse Rate 80 07/18/18 14:00 Respiratory Rate 18 07/18/18 14:00 Blood Pressure 118/87 07/18/18 14:00 O2 Sat by Pulse Oximetry (%) 99 07/18/18 08:00 Constitutional: Yes: Well Nourished, No Distress, Calm Eyes: Yes: Conjunctiva Clear, EOM Intact, PERRL HENT: Yes: Atraumatic, Normocephalic Neck: Yes: Supple, Trachea Midline Cardiovascular: Yes: Regular Rate and Rhythm, S1, S2. No: Bradycardia, Tachycardia, Pulse Irregular, Bruit, JVD, Gallop, Murmur, Rub, S3, S4, Varicosities Respiratory: Yes: Regular, CTA Bilaterally. No: Rales, Rhonchi, SOB, Wheezes Gastrointestinal: Yes: Normal Bowel Sounds, Soft. No: Distention, Tenderness Extremities: Yes: WNL Edema: No Peripheral Pulses WNL: Yes Peripheral Pulses: Left Doralis Pedis: 2+, Right Dorsalis Pedis: 2+ Neurological: Yes: Alert, Oriented Psychiatric: Yes: Alert, Oriented Labs: CBC, BMP 07/18/18 05:30 07/18/18 05:30 INR, PTT INR 1.17 (0.83-1.09) H 07/17/18 05:30 - ....Imaging Chest X-ray: Report Reviewed, Image Reviewed EKG: Report Reviewed, Image Reviewed Other: Report Reviewed, Image Reviewed (tele-nsr, no arrhythmias recorded) Assessment/Plan 38 yo F with prior VSD repair at age 17 was admitted after a syncope. While standing she had lightheadedness and passed out. She was SOB after and in ER was hypoxic. A Chest CT showed pulmonary emboli involving multiple segments without RT heart strain. Echocardiogram showed normal LV function with moderate to severe RV hypokinesis and dilation. There is moderate TR and mild RA enlargement. Pulmonary pressure was not elevated as per this study. She is no longer SOB and reports no pain or palpitations. THere is no prior history of clotting, no recent travel or medication use. Multiple b/l Pulmonary embolism with RV strain -receiving Heparin -symptomatically improved -Being considered for possible thrombolysis given clot burden. -No arrhythmias on tele No additional cardiac work up needed at this time. Please call with any additional questions.
[2018-07-18] MEDS: HEPARIN - 25,000 UNIT in SODIUM CHLORIDE 495 ML IV SCH (17:00)
--- NOTE | 2018-07-18 18:57 | PN ---
Physical Exam: SUBJECTIVE: Patient seen and examined at bedside this morning. No acute events overnight. Denies any fevers, chills, chest pain, shortness of breath, abdominal pain, nausea, vomiting, diarrhea, bruising, or bleeding. Still complains of calf pain, but it is now on lateral left sided calf. OBJECTIVE: Vital Signs Period Temp Pulse Resp BP Sys/Castrejon Pulse Ox Last 24 Hr 97.8 F-98.6 F 73-92 18-25 103-130/53-91 99-100 GENERAL: Patient is awake, alert, and oriented to person, place, and time. She is resting comfortably in bed with mother at bedside in no acute distress. HEAD: Normocephalic. Tender to light palpation of occiput at midline. EYES: Pupils equal, round and reactive to light and accommodation. Extraocular movements intact. No horizontal or vertical nystagmus noted. Sclerae anicteric. EARS, NOSE, THROAT: Ears normal, nares patent, oropharynx clear without exudates. Moist mucous membranes. NECK: Negative neck pain to palpation or stiffness. Supple, without lymphadenopathy. No thyromegaly or thyroid nodules appreciated. LUNGS: Breath sounds equal, clear to auscultation bilaterally. Good inspiratory effort. No wheezes, and no crackles. No accessory muscle use. HEART: Regular rate and rhythm, +S1 and S2 auscultated. No murmurs or gallops appreciated. ABDOMEN: Soft, nontender to palpation X4 quadrants. Normoactive bowel sounds auscultated X 4 quadrants. No hepatosplenomegaly appreciated. No guarding, no rebound. Rectal: No hemorrhoids, or masses palpated. Minimal light brown stool in rectal vault. No gross blood noted. MUSCULOSKELETAL: Full range of motion in B/L upper and lowed extremities. Strength 5/5 B/L upper extremities in flexion, extension, abduction, adduction. Strength 5/5 lower extremities in hip flexion and extension, knee flexion and extension. 5/5 B/L plantarflexion and dorsiflexion. UPPER EXTREMITIES: 2+ radial pulses. No rashes, or lesions noted. LOWER EXTREMITIES: 2+ dorsalis pedis pulses. No rashes or lesions noted. No calf tenderness B/L. Negative Veronica's sign. No peripheral edema B/L. Left calf mild tender to palpation. No bruising noted B/L. NEUROLOGICAL: Cranial nerves II-XII intact. No gross focal deficits appreciated. PSYCHIATRIC: Cooperative patient. Appropriate mood and affect upon my encounter today. Laboratory Results - last 24 hr 07/17/18 07/17/18 07/18/18 05:30 21:30 05:30 WBC 3.6 L RBC 3.49 L Hgb 9.5 L Hct 29.6 L MCV 84.8 MCH 27.1 MCHC 31.9 L RDW 17.1 H Plt Count 171 MPV 8.8 PTT (Actin FS) 52.0 H Sodium Potassium Chloride Carbon Dioxide Anion Gap BUN Creatinine Creat Clearance w eGFR Random Glucose Calcium Phosphorus Magnesium Iron 27 TIBC 303 Iron Saturation 9 L Transferrin 252 Total Bilirubin AST ALT Alkaline Phosphatase Total Protein Albumin 07/18/18 07/18/18 07/18/18 05:30 05:30 11:26 WBC RBC Hgb Hct MCV MCH MCHC RDW Plt Count MPV PTT (Actin FS) 54.1 H 49.6 H Sodium 141 Potassium 3.8 Chloride 109 H Carbon Dioxide 25 Anion Gap 7 L BUN 8 Creatinine 0.6 Creat Clearance w eGFR > 60 Random Glucose 94 Calcium 7.7 L Phosphorus 4.3 Magnesium 1.7 L Iron TIBC Iron Saturation Transferrin Total Bilirubin 0.2 AST 13 L ALT 22 Alkaline Phosphatase 41 L Total Protein 5.9 L Albumin 2.6 L 07/18/18 17:30 WBC RBC Hgb Hct MCV MCH MCHC RDW Plt Count MPV PTT (Actin FS) 53.1 H Sodium Potassium Chloride Carbon Dioxide Anion Gap BUN Creatinine Creat Clearance w eGFR Random Glucose Calcium Phosphorus Magnesium Iron TIBC Iron Saturation Transferrin Total Bilirubin AST ALT Alkaline Phosphatase Total Protein Albumin Active Medications Generic Name Dose Route Start Last Admin Trade Name Freq PRN Reason Stop Dose Admin Acetaminophen 650 mg 07/15/18 16:27 07/18/18 13:31 Tylenol - PO 650 mg Q6H PRN Administration PAIN LEVEL 1-5 Chlorhexidine Gluconate 1 applic 07/15/18 22:00 07/17/18 21:37 Hibiclens For Decolonization - TP 1 applic HS JEOVANY Administration Docusate Sodium 100 mg 07/19/18 10:00 Colace - PO DAILY JEOVANY Ferrous Sulfate 325 mg 07/18/18 22:00 Feosol - PO BID JEOVANY Heparin Sodium (Porcine) 3,000 unit 07/15/18 16:42 Heparin - 40 unit/kg (3000 unit) IVPUSH PRN PRN For aPTT 35 to 45 seconds Heparin Sodium (Porcine) 6,100 unit 07/15/18 16:42 Heparin - 80 unit/kg (6100 unit) IVPUSH PRN PRN aPTT <35 seconds Heparin Sodium (Porcine) 1,000 unit 07/18/18 13:20 07/18/18 14:15 Heparin - IVPUSH 1,000 unit PRN PRN Administration Heparin Heparin Sodium (Porcine) 25, 500 mls @ 27.27 mls/hr 07/15/18 17:00 07/18/18 17:00 000 unit/ Sodium Chloride IV 14.71 unit/kg/hr TITR JEOVANY 22.3 mls/hr Administration Protocol 18 UNIT/KG/HR Mupirocin 1 applic 07/15/18 22:00 07/18/18 09:32 Bactroban Ointment (For Decolonization) - NS 07/20/18 21:59 1 applic BID JEOVANY Administration Imaging: -EKG showed Sinus tachycardia, RSR prime in lead V1, S1Q3T3 noted. -CT Head showed no evidence of intracrainal hemorrhage. Positive for occipital scalp hematoma midline. -CT Chest showed multiple Pulmonary Emboli in right upper lobe, right posterior basilar, and right middle lobe segmental arteries, right pulmonary artery, left upper lobe anterior segmental artery. -Lower extremity duplex ultrasound showed no evidence of DVT in B/L legs ASSESSMENT/PLAN: 38 year old female with history of VSD repaired in (1996) presents after syncopal episode, and admitted for Pulmonary Embolism. Syncopal episode secondary to Acute sub-massive unprovoked PE -PEsI: high risk -EKG shows evidence of right heart strain. -CT Chest showed multiple pulmonary emboli, without saddle embolus. -Lower extremity ultrasound shows no evidence of DVT B/L. -Patient is saturating 99% on 2L NC. Goal is to maintain oxygen saturation above 90% -No evidence of intracranial hemorrhage on CT head. -Rectal exam performed- no apryl blood noted. Sent for stool occult. -Patient started on Heparin Drip. STAT bolus 80mg/kg given in ED. -Continue maintenance Heparin drip. PTT goal 60-80 -Discussed anticoagulation options with patient today. Based on patient's current insurance situation, unclear if NOAC would be covered. Will proceed with Coumadin for anticoagulation. Discussed risks of bleeding, and importance of follow up INR with patient and she demonstrates understanding and is in agreement with the plan. Coumadin 7.5mg PO one time dose now, and will follow PT /INR tomorrow AM. -Pain control with Tylenol 650mg PO Q6 PRN for pain 1-5 -ICU/ Pulmonology consultation (Dr. Freed) appreciated: Will continue heparin, and ICU monitoring. Will discuss possible thrombectomy with IR -Hematology/ Oncolgy consult (Tania Vanegas) appreciated: Will decide between initiating NOAC vs. Coumadin once IR has decided regarding thrombectomy. Will F/U iron studies, ferritin. -IR consult discussed that no thrombectomy intervention is indicated at this time. -Transvaginal US: Leiomyoma 11.1 x 9.2 x 8.2cm. 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 R/O Acute Coronary Syndrome -EKG showed Sinus tachycardia, RSR prime in lead V1, S1Q3T3 noted. -Troponin 0.41-> 1.50 -> 0.30 -Cardiac echo shows: LV size, thickness, and function normal. Impaired LV relaxation. RV severely dilated. No pericardial effusion. -Repeat cardiac echo unchanged from initial except for RV is moderately dilated in this study. -Cardiology consult (Dr. Chu) appreciated: No further cardiac management is warranted. FEN -No IV fluids, patient tolerating PO intake -Electrolytes within normal limits. Will follow CMP -Regular diet Prophylaxis -Patient is on Heparin drip, first dose coumadin 7.5 mg PO today. Disposition: Continue monitoring in ICU today Visit type - Emergency Visit Emergency Visit: No - New Patient This patient is new to me today: No - Critical Care Critical Care patient: No - Discharge Referral Referred to [facility] Med P.C.: No
[2018-07-18] MEDS ORDERED: WARFARIN NA 7.5 MG TABLET (FP) PO ONE ×2 (19:00→19:45)
--- NOTE | 2018-07-18 20:21 | PN ---
Teaching Attending Note Name of Resident: Jimena Mathis ATTENDING PHYSICIAN STATEMENT I saw and evaluated the patient. I reviewed the resident's note and discussed the case with the resident. I agree with the resident's findings and plan as documented. SUBJECTIVE: Patient seen and examined Submassive P.E. without right heart strain. Denies chest pain or SOB at rest Unprovoked OBJECTIVE: Last Vital Signs Temp Pulse Resp BP Pulse Ox 98.3 F 90 16 125/83 99 07/18/18 18:00 07/18/18 19:57 07/18/18 19:59 07/18/18 19:57 07/18/18 19:59 HEENT: ADDIS, EOM Intact Oropharynx: No thrush, No mucositis Cor: RSR, No murmurs, No gallops Lungs: Clear to P&A Abd: Soft, Normal bowel sounds, No organomegaly Ext:No significant edema Skin: No rashes, Integument intact CBC, BMP 07/18/18 05:30 07/18/18 05:30 INR, PTT INR 1.17 (0.83-1.09) H 07/17/18 05:30 Current Medications Generic Name Dose Route Start Last Admin Trade Name Freq PRN Reason Stop Dose Admin Acetaminophen 650 mg 07/15/18 16:27 07/18/18 13:31 Tylenol - PO 650 mg Q6H PRN Administration PAIN LEVEL 1-5 Chlorhexidine Gluconate 1 applic 07/15/18 22:00 07/17/18 21:37 Hibiclens For Decolonization - TP 1 applic HS JEOVANY Administration Docusate Sodium 100 mg 07/19/18 10:00 Colace - PO DAILY JEOVANY Ferrous Sulfate 325 mg 07/18/18 22:00 Feosol - PO BID JEOVANY Heparin Sodium (Porcine) 3,000 unit 07/15/18 16:42 Heparin - 40 unit/kg (3000 unit) IVPUSH PRN PRN For aPTT 35 to 45 seconds Heparin Sodium (Porcine) 6,100 unit 07/15/18 16:42 Heparin - 80 unit/kg (6100 unit) IVPUSH PRN PRN aPTT <35 seconds Heparin Sodium (Porcine) 1,000 unit 07/18/18 13:20 07/18/18 14:15 Heparin - IVPUSH 1,000 unit PRN PRN Administration Heparin Heparin Sodium (Porcine) 25, 500 mls @ 27.27 mls/hr 07/15/18 17:00 07/18/18 17:00 000 unit/ Sodium Chloride IV 14.71 unit/kg/hr TITR JEOVANY 22.3 mls/hr Administration Protocol 18 UNIT/KG/HR Mupirocin 1 applic 07/15/18 22:00 07/18/18 09:32 Bactroban Ointment (For Decolonization) - NS 07/20/18 21:59 1 applic BID JEOVANY Administration ASSESSMENT AND PLAN: Submassive P.E.- no right heart strain senior living choice of a/c to be decided upon. Clinically stable Awaiting input from I.R. Will need thrombophilia work up as outpatient
[2018-07-18] MEDS: CHLORHEXIDINE GLUCONATE 4% CLEANSER FOR DECOLONIZATION TP SCH (21:30)
[2018-07-18] MEDS: FERROUS SO4 325 MG TABLET (FP) PO SCH (21:30)
[2018-07-19 06:31] LABS: HEMATOCRIT 31.5 % (32.4-45.2); HEMOGLOBIN 10.3 GM/dL (10.7-15.3); MCH 27.4 pg (25.7-33.7); MCHC 32.6 g/dl (32.0-36.0); MEAN CELL VOLUME 83.9 fl (80-96); MEAN PLT VOLUME 8.2 fl (7.5-11.1); PLATELET COUNT 182 K/MM3 (134-434); RBC 3.75 M/mm3 (3.60-5.2); RDW 17.2 % (11.6-15.6); WHITE BLOOD COUNT 4.4 K/mm3 (4.0-10.0)
[2018-07-19 06:54] LABS: ANION GAP 10 MMOL/L (8-16); BLOOD UREA NITROGEN 9 mg/dL (7-18); CALCIUM 7.6 mg/dL (8.5-10.1); CHLORIDE 109 mmol/L (98-107); CO2 23 mmol/L (21-32); GLUCOSE,RANDOM 92 mg/dL (74-106); MAGNESIUM 1.8 mg/dL (1.8-2.4); SODIUM 142 mmol/L (136-145)
[2018-07-19 06:55] LABS: CREATININE 0.6 mg/dL (0.55-1.02); PHOSPHOROUS 3.7 mg/dL (2.5-4.9)
[2018-07-19 07:09] LABS: INR 1.12 (0.83-1.09); PROTHROMBIN TIME (PATIENT) 12.6 SEC (9.7-13.0)
[2018-07-19] MEDS: FERROUS SO4 325 MG TABLET (FP) PO SCH ×2 (09:39→21:14)
[2018-07-19] MEDS: MUPIROCIN 2% TOPICAL OINTMENT FOR DECOLONIZATION NS SCH ×2 (09:39→21:14)
[2018-07-19] MEDS ORDERED: DOCUSATE SODIUM 100 MG CAPSULE (FP) PO SCH (10:00)
--- NOTE | 2018-07-19 12:07 | PN ---
Teaching Attending Note Name of Resident: Erlin Zamora ATTENDING PHYSICIAN STATEMENT I saw and evaluated the patient. I reviewed the resident's note and discussed the case with the resident. I agree with the resident's findings and plan as documented. SUBJECTIVE: Pt seen and examined in the ICU. No intervention planned by IR. Ambulating around unit without shortness of breath, chest pain or palpitations. OBJECTIVE: Vital Signs Period Temp Pulse Resp BP Sys/Castrejon Pulse Ox Last 24 Hr 98.0 F-98.3 F 67-90 14-19 91-125/60-87 99-99 Intake & Output 07/16/18 07/17/18 07/18/18 07/19/18 23:59 23:59 23:59 23:59 Intake Total 1096.4 902.6 1877.2 500.2 Output Total 1700 1150 600 Balance -603.6 -247.4 1277.2 500.2 Weight 75.296 kg 78.727 kg Gen: NAD at rest Heart: RRR Lung: decreased breath sounds at the bases Abd: soft, nontender Ext: no edema CBC, BMP 07/19/18 05:30 07/19/18 05:30 Active Medications Acetaminophen (Tylenol -) 650 mg PO Q6H PRN PRN Reason: PAIN LEVEL 1-5 Last Admin: 07/18/18 13:31 Dose: 650 mg Chlorhexidine Gluconate (Hibiclens For Decolonization -) 1 applic TP HS [facility] Last Admin: 07/18/18 21:30 Dose: 1 applic Docusate Sodium (Colace -) 100 mg PO DAILY [facility] Last Admin: 07/19/18 09:39 Dose: 100 mg Enoxaparin Sodium (Lovenox -) 80 mg SQ BID [facility] Ferrous Sulfate (Feosol -) 325 mg PO BID [facility] Last Admin: 07/19/18 09:39 Dose: 325 mg Mupirocin (Bactroban Ointment (For Decolonization) -) 1 applic NS BID [facility] Stop: 07/20/18 21:59 Last Admin: 07/19/18 09:39 Dose: 1 applic Warfarin Sodium (Coumadin -) 5 mg PO ONCE@1800 ONE Stop: 07/19/18 18:01 ASSESSMENT AND PLAN: Acute Submassive Pulmonary Emboli appears to be unprovoked RV Strain Syncope Large Leiomyoma - continue anticoagulation, can change to LMWH for transition to coumadin - target INR 2-3 - O2 to keep SpO2 >90% - can monitor on floor
--- NOTE | 2018-07-19 12:13 | PN ---
Physical Exam: SUBJECTIVE: Patient seen and examined. No acute events overnight. Pt. received 7.5mg Coumadin. Pt. endoreses having mild calf pain 5/10. No BM. Pt states that her neck pain has resolved. OBJECTIVE: Vital Signs Period Temp Pulse Resp BP Sys/Castrejon Pulse Ox Last 24 Hr 98.0 F-98.3 F 67-90 14-19 91-125/60-87 99-99 GENERAL: The patient is awake, alert, and fully oriented, sitting up in chair in no acute distress. LUNGS: Breath sounds equal, clear to auscultation bilaterally, no wheezes, no crackles, no accessory muscle use. HEART: Regular rate and rhythm, S1, S2 without murmur EXTREMITIES: 2+ pulses, warm, well-perfused, no edema. NEUROLOGICAL: Normal speech, Normal gait. PSYCH: Normal mood, normal affect. SKIN: Warm, dry, normal turgor, no rashes or lesions noted Laboratory Results - last 24 hr 07/18/18 07/18/18 07/18/18 11:26 17:30 23:30 WBC RBC Hgb Hct MCV MCH MCHC RDW Plt Count MPV PT with INR INR PTT (Actin FS) 49.6 H 53.1 H 54.4 H Sodium Potassium Chloride Carbon Dioxide Anion Gap BUN Creatinine Creat Clearance w eGFR Random Glucose Calcium Phosphorus Magnesium 07/19/18 07/19/18 07/19/18 05:30 05:30 05:30 WBC 4.4 RBC 3.75 Hgb 10.3 L Hct 31.5 L MCV 83.9 MCH 27.4 MCHC 32.6 RDW 17.2 H Plt Count 182 MPV 8.2 PT with INR 12.60 INR 1.12 H PTT (Actin FS) Sodium 142 Potassium 4.0 Chloride 109 H Carbon Dioxide 23 Anion Gap 10 BUN 9 Creatinine 0.6 Creat Clearance w eGFR > 60 Random Glucose 92 Calcium 7.6 L Phosphorus 3.7 Magnesium 1.8 07/19/18 05:30 WBC RBC Hgb Hct MCV MCH MCHC RDW Plt Count MPV PT with INR INR PTT (Actin FS) 47.8 H Sodium Potassium Chloride Carbon Dioxide Anion Gap BUN Creatinine Creat Clearance w eGFR Random Glucose Calcium Phosphorus Magnesium Active Medications Current Medications Acetaminophen (Tylenol -) 650 mg PO Q6H PRN PRN Reason: PAIN LEVEL 1-5 Last Admin: 07/18/18 13:31 Dose: 650 mg Chlorhexidine Gluconate (Hibiclens For Decolonization -) 1 applic TP HS [facility] Last Admin: 07/18/18 21:30 Dose: 1 applic Docusate Sodium (Colace -) 100 mg PO DAILY [facility] Last Admin: 07/19/18 09:39 Dose: 100 mg Enoxaparin Sodium (Lovenox -) 80 mg SQ BID [facility] Ferrous Sulfate (Feosol -) 325 mg PO BID [facility] Last Admin: 07/19/18 09:39 Dose: 325 mg Mupirocin (Bactroban Ointment (For Decolonization) -) 1 applic NS BID [facility] Stop: 07/20/18 21:59 Last Admin: 07/19/18 09:39 Dose: 1 applic Warfarin Sodium (Coumadin -) 5 mg PO ONCE@1800 ONE Stop: 07/19/18 18:01 ASSESSMENT/PLAN: A 38 y.o. F w/ PMHx. of VSD surgery in 1996, presents after dizziness and syncopal episode to the ED. Pt. was admitted for unprovoked bilateral PE #Cardiovascular -Tachycardia 2/2 Bilateral PE d/c Heparin drip, start Lovenox bridge to Coumadin ICU monitoring CTA positive for b/l PE: left upper lobe anterior segmental artery, right pulmonary artery distally, right posterior basilar, right upper lobe posterior, right middle lobe segmental artery. Troponins trending down peaked at 1.5-->0.30 Echo appreciated: LV normal, impaired LV relaxation, RV severely dilated, RA mildly dilated, moderate TR. Rpt. echo show improving cardiac fxn. RV is moderately dilated and fxn is mildly reduced, mild MR and AR, moderate TR, LV is normal in EF, wall motion and function. IR will not be performing thrombectomy procedure as Rpt. echo shows resolving cardiac function. Cardiology(Dr. Chu) and IR consults appreciated -Anemia c/w Iron tablets anemia workup as outpatient Fibroid uterus and Hx. of heavy menses is likely contributory to anemia. #Pulmonary -B/l Submassive PE f/u Pelvic US for fibroids as etiology of submassive PE. d/c Heparin drip, Pt. started on Coumadin with a weight based Lovenox bridge BID Pt. saturating well on room air supplemental O2 as needed to keep SpO2 above 90% #Gynecology -Fibroid Uterus US showing Uterus size of 15.8 x 12.2 x 10.3 cm; Fibroid size was measured 11.1 x 9.1 x 8.2 cm. F/U MRI is recommended for outpatient consultation in addition to Gynecology consultation. #F/E/N Regular Diet Pt. receiving weight based Lovenox BID Magnesium repleted #DVT PPx. D/C Heparin drip, started Lovenox 80mg BID Will bridge to Coumadin as per primary team. Monitor INR with therapeutic goal of 2.0-3.0. INR: 1.12 Rpt duplex (07/18/18) showed no evidence of DVT Dispo: Med/Surg Thank you for this consultative opportunity. Visit type - Emergency Visit Emergency Visit: Yes ED Registration Date: 07/15/18 Care time: The patient presented to the Emergency Department on the above date and was hospitalized for further evaluation of their emergent condition. - New Patient This patient is new to me today: No - Critical Care Critical Care patient: No - Discharge Referral Referred to [facility] Med P.C.: No
--- NOTE | 2018-07-19 13:15 | PN ---
Physical Exam: SUBJECTIVE: Patient seen and examined at bedside this morning. No acute events overnight. Patient received 7.5mg dose Warfarin yesterday evening. Denies any fevers, chills, chest pain, shortness of breath, abdominal pain, nausea, vomiting, diarrhea, bruising, or bleeding. Still complains of calf pain, on lateral left sided calf. OBJECTIVE: Vital Signs Period Temp Pulse Resp BP Sys/Castrejon Pulse Ox Last 24 Hr 98.0 F-98.3 F 67-90 14-19 91-125/60-87 99-99 GENERAL: Patient is awake, alert, and oriented to person, place, and time. She is resting comfortably in chair. HEAD: Normocephalic. Atraumatic EYES: Pupils equal, round and reactive to light and accommodation. Extraocular movements intact. No horizontal or vertical nystagmus noted. Sclerae anicteric. EARS, NOSE, THROAT: Oropharynx clear without exudates. Moist mucous membranes. NECK: Negative neck pain to palpation or stiffness. Supple, without lymphadenopathy. No thyromegaly or thyroid nodules appreciated. LUNGS: Breath sounds equal, clear to auscultation bilaterally. Good inspiratory effort. No wheezes, and no crackles. No accessory muscle use. HEART: Regular rate and rhythm, +S1 and S2 auscultated. No murmurs or gallops appreciated. ABDOMEN: Soft, nontender to palpation X4 quadrants. Normoactive bowel sounds auscultated X 4 quadrants. No hepatosplenomegaly appreciated. No guarding, no rebound. Rectal: No hemorrhoids, or masses palpated. Minimal light brown stool in rectal vault. No gross blood noted. MUSCULOSKELETAL: Full range of motion in B/L upper and lowed extremities. Strength 5/5 B/L upper extremities in flexion, extension, abduction, adduction. Strength 5/5 lower extremities in hip flexion and extension, knee flexion and extension. 5/5 B/L plantarflexion and dorsiflexion. UPPER EXTREMITIES: 2+ radial pulses. No rashes, or lesions noted. LOWER EXTREMITIES: 2+ dorsalis pedis pulses. No rashes or lesions noted. No calf tenderness B/L. Negative Veronica's sign. No peripheral edema B/L. Left calf mild tender to palpation. No bruising noted B/L. NEUROLOGICAL: Cranial nerves II-XII intact. No gross focal deficits appreciated. PSYCHIATRIC: Cooperative patient. Appropriate mood and affect upon my encounter today. Laboratory Results - last 24 hr 07/18/18 07/18/18 07/19/18 17:30 23:30 05:30 WBC 4.4 RBC 3.75 Hgb 10.3 L Hct 31.5 L MCV 83.9 MCH 27.4 MCHC 32.6 RDW 17.2 H Plt Count 182 MPV 8.2 PT with INR INR PTT (Actin FS) 53.1 H 54.4 H Sodium Potassium Chloride Carbon Dioxide Anion Gap BUN Creatinine Creat Clearance w eGFR Random Glucose Calcium Phosphorus Magnesium 07/19/18 07/19/18 07/19/18 05:30 05:30 05:30 WBC RBC Hgb Hct MCV MCH MCHC RDW Plt Count MPV PT with INR 12.60 INR 1.12 H PTT (Actin FS) 47.8 H Sodium 142 Potassium 4.0 Chloride 109 H Carbon Dioxide 23 Anion Gap 10 BUN 9 Creatinine 0.6 Creat Clearance w eGFR > 60 Random Glucose 92 Calcium 7.6 L Phosphorus 3.7 Magnesium 1.8 Active Medications Generic Name Dose Route Start Last Admin Trade Name Freq PRN Reason Stop Dose Admin Acetaminophen 650 mg 07/15/18 16:27 07/18/18 13:31 Tylenol - PO 650 mg Q6H PRN Administration PAIN LEVEL 1-5 Chlorhexidine Gluconate 1 applic 07/15/18 22:00 07/18/18 21:30 Hibiclens For Decolonization - TP 1 applic HS JEOVANY Administration Docusate Sodium 100 mg 07/19/18 10:00 07/19/18 09:39 Colace - PO 100 mg DAILY [facility] Administration Enoxaparin Sodium 80 mg 07/19/18 13:00 Lovenox - SQ BID [facility] Ferrous Sulfate 325 mg 07/18/18 22:00 07/19/18 09:39 Feosol - PO 325 mg BID [facility] Administration Mupirocin 1 applic 07/15/18 22:00 07/19/18 09:39 Bactroban Ointment (For Decolonization) - NS 07/20/18 21:59 1 applic BID [facility]OVANY Administration Warfarin Sodium 5 mg 07/19/18 18:00 Coumadin - PO 07/19/18 18:01 ONCE@1800 ONE ASSESSMENT/PLAN: Imaging: -EKG showed Sinus tachycardia, RSR prime in lead V1, S1Q3T3 noted. -CT Head showed no evidence of intracrainal hemorrhage. Positive for occipital scalp hematoma midline. -CT Chest showed multiple Pulmonary Emboli in right upper lobe, right posterior basilar, and right middle lobe segmental arteries, right pulmonary artery, left upper lobe anterior segmental artery. -Lower extremity duplex ultrasound showed no evidence of DVT in B/L legs ASSESSMENT/PLAN: 38 year old female with history of VSD repaired in (1996) presents after syncopal episode, and admitted for Pulmonary Embolism. Syncopal episode secondary to Acute sub-massive unprovoked PE -PEsI: high risk -EKG shows evidence of right heart strain. -CT Chest showed multiple pulmonary emboli, without saddle embolus. -Lower extremity ultrasound shows no evidence of DVT B/L. -Patient is saturating 99% on 2L NC. Goal is to maintain oxygen saturation above 90% -No evidence of intracranial hemorrhage on CT head. -Heparin drip discontinued. Patient started on Lovenox 80mg SQ BID for bridging therapy. -Warfarin 7.5mg today (second dose). Received 7.5mg yesterday evening. Based on patient's current insurance situation, unclear if NOAC would be covered. Will proceed with Coumadin for anticoagulation. Discussed risks of bleeding, and importance of follow up INR with patient and she demonstrates understanding and is in agreement with the plan. -Pain control with Tylenol 650mg PO Q6 PRN for pain 1-5 -ICU/ Pulmonology consultation (Dr. Freed) appreciated: Will switch to LMWH, INR goal 2-3. Will transfer to floor. -Hematology/ Oncolgy consult (Dr. Elias [facility]) appreciated: Will decide between initiating NOAC vs. Coumadin once IR has decided regarding thrombectomy. Will F/U iron studies, ferritin. -IR consult discussed that no thrombectomy intervention is indicated at this time. -Transvaginal US: Leiomyoma 11.1 x 9.2 x 8.2cm. Patient will follow up with CONSULTING MARINE ENGINEER outpatient. R/O Acute Coronary Syndrome -EKG showed Sinus tachycardia, RSR prime in lead V1, S1Q3T3 noted. -Troponin 0.41-> 1.50 -> 0.30 -Cardiac echo shows: LV size, thickness, and function normal. Impaired LV relaxation. RV severely dilated. No pericardial effusion. -Repeat cardiac echo unchanged from initial except for RV is moderately dilated in this study. -Cardiology consult (Dr. Chu) appreciated: No further cardiac management is warranted. Anemia -Hb 10.3 (9.5 yesterday), Hct 31.5 (29.6 yesterday). MCV 83.9 -Ferrous sulfate 325 mg PO BID -Colace 100mg daily -As per hematology consult, patient will follow up outpatient for further workup. FEN -No IV fluids, patient tolerating PO intake -Electrolytes within normal limits. Will follow CMP -Regular diet Prophylaxis -Lovenox 80mg SQ BID. Warfarin 7.55mg today. Disposition: Continue monitoring in Telemetry floor. Visit type - Emergency Visit Emergency Visit: Yes ED Registration Date: 07/15/18 Care time: The patient presented to the Emergency Department on the above date and was hospitalized for further evaluation of their emergent condition. - New Patient This patient is new to me today: No - Critical Care Critical Care patient: Yes Total Critical Care Time (in minutes): 35 Critical Care Statement: The care of this patient involved high complexity decision making to prevent further life threatening deterioration of the patient 's condition and/or to evaluate & treat vital organ system(s) failure or risk of failure. - Discharge Referral Referred to [facility] Med P.C.: No
[2018-07-19] MEDS: ENOXAPARIN NA (PORCINE) 80 MG/0.8 ML DISP.SYRIN SQ SCH ×2 (13:28→21:14)
--- NOTE | 2018-07-19 14:09 | PN ---
Physical Exam: SUBJECTIVE: Patient seen and examined at bed side this morning. Was sitting in a chair. No complaints. Denies chest pain, sob, cough, palpitation, abdominal pain, nausea or vomiting. Bowel/Bladder habit normal. Sleep/Appetite normal. No acute overnight events. In ICU. OBJECTIVE: Vital Signs Period Temp Pulse Resp BP Sys/Castrejon Pulse Ox Last 24 Hr 98.0 F-98.3 F 67-90 14-19 91-125/60-83 99-99 GENERAL: Young female, sitting comfortably in a chair, awake, alert, oriented x 3, in no acute distress. HEAD: Normal with no signs of trauma. EYES: EOM intact, no pallor or icterus. . ENT: Ears normal, moist mucous membranes. NECK: Supple. LUNGS: B/L Breath sounds equal, decreased BS, no wheezes, no crackles, no accessory muscle use. HEART: Regular rate and rhythm, S1, S2 without murmur. ABDOMEN: Soft, nontender, nondistended, normoactive bowel sounds, no guarding, no rebound, no hepatosplenomegaly, no masses. EXTREMITIES: 2+ pulses, warm, well-perfused, no edema. NEUROLOGICAL: No facial droop. Normal speech, gait not observed. PSYCH: Normal mood, normal affect. SKIN: Warm, dry, normal turgor, no rashes or lesions noted Laboratory Results - last 24 hr 07/18/18 07/18/18 07/19/18 17:30 23:30 05:30 WBC 4.4 RBC 3.75 Hgb 10.3 L Hct 31.5 L MCV 83.9 MCH 27.4 MCHC 32.6 RDW 17.2 H Plt Count 182 MPV 8.2 PT with INR INR PTT (Actin FS) 53.1 H 54.4 H Sodium Potassium Chloride Carbon Dioxide Anion Gap BUN Creatinine Creat Clearance w eGFR Random Glucose Calcium Phosphorus Magnesium 07/19/18 07/19/18 07/19/18 05:30 05:30 05:30 WBC RBC Hgb Hct MCV MCH MCHC RDW Plt Count MPV PT with INR 12.60 INR 1.12 H PTT (Actin FS) 47.8 H Sodium 142 Potassium 4.0 Chloride 109 H Carbon Dioxide 23 Anion Gap 10 BUN 9 Creatinine 0.6 Creat Clearance w eGFR > 60 Random Glucose 92 Calcium 7.6 L Phosphorus 3.7 Magnesium 1.8 Active Medications Generic Name Dose Route Start Last Admin Trade Name Javyq PRN Reason Stop Dose Admin Acetaminophen 650 mg 07/15/18 16:27 07/18/18 13:31 Tylenol - PO 650 mg Q6H PRN Administration PAIN LEVEL 1-5 Chlorhexidine Gluconate 1 applic 07/15/18 22:00 07/18/18 21:30 Hibiclens For Decolonization - TP 1 applic HS [facility] Administration Docusate Sodium 100 mg 07/19/18 10:00 07/19/18 09:39 Colace - PO 100 mg DAILY [facility] Administration Enoxaparin Sodium 80 mg 07/19/18 13:00 07/19/18 13:28 Lovenox - SQ 80 mg BID [facility] Administration Ferrous Sulfate 325 mg 07/18/18 22:00 07/19/18 09:39 Feosol - PO 325 mg BID [facility] Administration Mupirocin 1 applic 07/15/18 22:00 07/19/18 09:39 Bactroban Ointment (For Decolonization) - NS 07/20/18 21:59 1 applic BID [facility] Administration Warfarin Sodium 5 mg 07/19/18 18:00 Coumadin - PO 07/19/18 18:01 ONCE@[address] Chest showed multiple Pulmonary Emboli in right upper lobe, right posterior basilar, and right middle lobe segmental arteries, right pulmonary artery, left upper lobe anterior segmental artery. Lower extremity duplex ultrasound showed no evidence of DVT in B/L legs USG of uterus shows enlarged uterus 15.8 x 12.2 x 10.3 with a fibroid measuring 11.1 x 9.2 x 8.2cm 38 year old female with history of VSD repaired in 1996 presented to the ED with a syncopal episode admitted for further evaluation and treatment. ASSESSMENT: Acute sub-massive unprovoked PE Fibroid uterus Iron def anemia PLAN: Unprovoked PE Etiology unknown. Has no h/o of recent travel, no h/o Oral contraceptive use , No h/o HRT, no h/o malignancy in the family. Currently admitted in ICU, on Heparin drip. Now getting Lovenox. Etiology unknown but large fibroids causing stasis could be a contributing factor Needs outpatient hypercoagulable workup. Iron def anemia Likely secondary to heavy menses due to Fibroids. H/H 10.3/31.5. No blood transfusion needed at this time. Needs Methods And Procedures Analyst f/up as outpatient. Plan of care explained to the patient. She verbalized understanding. Case discussed with Dr. Marin. Visit type - Emergency Visit Emergency Visit: Yes ED Registration Date: 07/15/18 Care time: The patient presented to the Emergency Department on the above date and was hospitalized for further evaluation of their emergent condition. - New Patient This patient is new to me today: No - Critical Care Critical Care patient: Yes Total Critical Care Time (in minutes): 45 Critical Care Statement: The care of this patient involved high complexity decision making to prevent further life threatening deterioration of the patient 's condition and/or to evaluate & treat vital organ system(s) failure or risk of failure. - Discharge Referral Referred to [facility] Med P.C.: No
--- NOTE | 2018-07-19 14:19 | PN ---
Teaching Attending Note Name of Resident: Kike Steinberg ATTENDING PHYSICIAN STATEMENT I saw and evaluated the patient. I reviewed the resident's note and discussed the case with the resident. I agree with the resident's findings and plan as documented. SUBJECTIVE: No fever or chills. No CP or SOB. No bleeding OBJECTIVE: NAD Cv: RRR, no MRG. No JVD Lungs: CTAB EXt : no edema or erythema ASSESSMENT AND PLAN: 38 y/o lady with VSD repair who presented with chest pain and was found to have bilateral Pes. 1- Bilateral Unprovoked PEs . stable with no symptoms, and no O2 requirements - repeat Echo reviewed. - case was d/w IR by team, no indication for thrombolytic therapy - cont AC with lovenox and con to bridge to coumadin. has no insurance and can' t afford NOACs or loveno x - give 7.5 mg of coumadin tonight - hypercoagulable w/u is needed as out pt 2- Anemia: iron def anemia: likely due to heavy menses form fibroids. 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 can not be bridged at home . monitor on tele
[2018-07-19] MEDS ORDERED: HEPARIN NA (PORCINE) 5,000 UNITS/ML 1ML VIAL IVPUSH ONE (17:56)
[2018-07-19] MEDS ORDERED: HEPARIN NA (PORCINE) 5,000 UNITS/ML 1ML VIAL IVPUSH PRN ×2 (17:56)
[2018-07-19] MEDS ORDERED: WARFARIN NA 5 MG TABLET (UD) PO ONE (18:00)
[2018-07-19] MEDS ORDERED: WARFARIN NA 7.5 MG TABLET (FP) PO SCH (18:00)
[2018-07-19] MEDS: CHLORHEXIDINE GLUCONATE 4% CLEANSER FOR DECOLONIZATION TP SCH (21:14)
[2018-07-20 06:08] LABS: BASO % 0.8 % (0-2.0); EOS % 2.3 % (0-4.5); HEMOGLOBIN 9.7 GM/dL (10.7-15.3); LYMPH % 42.8 % (8-40); MCH 27.3 pg (25.7-33.7); MCHC 32.3 g/dl (32.0-36.0); MEAN CELL VOLUME 84.5 fl (80-96); MEAN PLT VOLUME 8.4 fl (7.5-11.1); MONO % 13.8 % (3.8-10.2); NEUT % 40.3 % (42.8-82.8); PLATELET COUNT 182 K/MM3 (134-434); RBC 3.55 M/mm3 (3.60-5.2); RDW 16.9 % (11.6-15.6); WHITE BLOOD COUNT 3.7 K/mm3 (4.0-10.0)
[2018-07-20 06:20] LABS: INR 1.24 (0.83-1.09)
[2018-07-20 06:31] LABS: ALBUMIN 2.8 g/dl (3.4-5.0); ALK PHOS 39 U/L (45-117); ANION GAP 9 MMOL/L (8-16); BILIRUBIN,TOTAL 0.1 mg/dL (0.2-1.0); BLOOD UREA NITROGEN 13 mg/dL (7-18); CALCIUM 8.2 mg/dL (8.5-10.1); CHLORIDE 109 mmol/L (98-107); CO2 25 mmol/L (21-32); CREATININE 0.7 mg/dL (0.55-1.02); GLUCOSE,RANDOM 89 mg/dL (74-106); POTASSIUM 4.1 mmol/L (3.5-5.1); SGOT/AST 20 U/L (15-37); SGPT/ALT 31 U/L (12-78); SODIUM 143 mmol/L (136-145); TOT PROT 6.1 g/dl (6.4-8.2)
[2018-07-20] MEDS: ACETAMINOPHEN 325 MG TABLET (FP) PO PRN (07:35)
[2018-07-20] MEDS: DOCUSATE SODIUM 100 MG CAPSULE (FP) PO SCH (09:18)
[2018-07-20] MEDS: MUPIROCIN 2% TOPICAL OINTMENT FOR DECOLONIZATION NS SCH (09:18)
[2018-07-20] MEDS: FERROUS SO4 325 MG TABLET (FP) PO SCH ×2 (09:18→21:29)
[2018-07-20] MEDS: ENOXAPARIN NA (PORCINE) 80 MG/0.8 ML DISP.SYRIN SQ SCH ×2 (09:19→21:29)
--- NOTE | 2018-07-20 09:42 | PN ---
Teaching Attending Note Name of Resident: Erlin Zamora ATTENDING PHYSICIAN STATEMENT I saw and evaluated the patient. I reviewed the resident's note and discussed the case with the resident. I agree with the resident's findings and plan as documented. SUBJECTIVE: Pt seen and examined in the ICU. No shortness of breath, chest pain or palpitations. OBJECTIVE: Vital Signs Period Temp Pulse Resp BP Sys/Castrejon Pulse Ox Last 24 Hr 98 F-98.2 F 68-88 14-23 91-127/61-81 99-100 Intake & Output 07/17/18 07/18/18 07/19/18 07/20/18 23:59 23:59 23:59 23:59 Intake Total 902.6 1877.2 500.2 500 Output Total 1150 600 Balance -247.4 1277.2 500.2 500 Weight 75.296 kg 78.727 kg 78.698 kg 78.727 kg Gen: NAD at rest Heart: RRR Lung: decreased breath sounds at the bases Abd: soft, nontender Ext: no edema CBC, BMP 07/20/18 05:30 07/20/18 05:30 Active Medications Acetaminophen (Tylenol -) 650 mg PO Q6H PRN PRN Reason: PAIN LEVEL 1-5 Last Admin: 07/20/18 07:35 Dose: 650 mg Chlorhexidine Gluconate (Hibiclens For Decolonization -) 1 applic TP HS [facility] Last Admin: 07/19/18 21:14 Dose: 1 applic Docusate Sodium (Colace -) 100 mg PO DAILY [facility] Last Admin: 07/20/18 09:18 Dose: 100 mg Enoxaparin Sodium (Lovenox -) 80 mg SQ BID [facility] Last Admin: 07/20/18 09:19 Dose: 80 mg Ferrous Sulfate (Feosol -) 325 mg PO BID [facility] Last Admin: 07/20/18 09:18 Dose: 325 mg Mupirocin (Bactroban Ointment (For Decolonization) -) 1 applic NS BID [facility] Stop: 07/20/18 21:59 Last Admin: 07/20/18 09:18 Dose: 1 applic Warfarin Sodium (Coumadin -) 7.5 mg PO DAILY@1800 [facility] Last Admin: 07/19/18 17:56 Dose: 7.5 mg ASSESSMENT AND PLAN: Acute Submassive Pulmonary Emboli appears to be unprovoked RV Strain Syncope Large Leiomyoma - continue anticoagulation, LMWH transition to coumadin - target INR 2-3 - O2 to keep SpO2 >90% - can monitor on floor
--- NOTE | 2018-07-20 11:04 | PN ---
Physical Exam: SUBJECTIVE: Patient seen and examined. No acute events overnight. Pt. c/o only of waking up so many times in the ICU such that she could not get sleep. OBJECTIVE: Vital Signs Period Temp Pulse Resp BP Sys/Castrejon Pulse Ox Last 24 Hr 98 F-99.4 F 68-88 14-23 91-127/33-81 99-100 GENERAL: The patient is awake, alert, and fully oriented, in no acute distress. LUNGS: Breath sounds equal, clear to auscultation bilaterally, no wheezes, no crackles, no accessory muscle use. HEART: Regular rate and rhythm, S1, S2 without murmur ABDOMEN: Soft, nontender, nondistended, normoactive bowel sounds, no guarding, no rebound, EXTREMITIES: 2+ dorsal pedal pulses, warm, well-perfused, no calf tenderness, no edema. NEUROLOGICAL: Normal speech, Normal gait. PSYCH: Normal mood, normal affect. SKIN: Warm, dry, normal turgor, no rashes or lesions noted Laboratory Results - last 24 hr 07/20/18 07/20/18 07/20/18 05:30 05:30 05:30 WBC 3.7 L RBC 3.55 L Hgb 9.7 L Hct 30.0 L MCV 84.5 MCH 27.3 MCHC 32.3 RDW 16.9 H Plt Count 182 MPV 8.4 Absolute Neuts (auto) 1.5 Neutrophils % 40.3 L D Lymphocytes % 42.8 H D Monocytes % 13.8 H Eosinophils % 2.3 D Basophils % 0.8 Nucleated RBC % 0 PT with INR 14.00 H INR 1.24 H PTT (Actin FS) 30.0 Sodium 143 Potassium 4.1 Chloride 109 H Carbon Dioxide 25 Anion Gap 9 BUN 13 Creatinine 0.7 Creat Clearance w eGFR > 60 Random Glucose 89 Calcium 8.2 L Total Bilirubin 0.1 L AST 20 ALT 31 Alkaline Phosphatase 39 L Total Protein 6.1 L Albumin 2.8 L Active Medications Current Medications Acetaminophen (Tylenol -) 650 mg PO Q6H PRN PRN Reason: PAIN LEVEL 1-5 Last Admin: 07/20/18 07:35 Dose: 650 mg Chlorhexidine Gluconate (Hibiclens For Decolonization -) 1 applic TP HS JEOVANY Last Admin: 07/19/18 21:14 Dose: 1 applic Docusate Sodium (Colace -) 100 mg PO DAILY [facility] Last Admin: 07/20/18 09:18 Dose: 100 mg Enoxaparin Sodium (Lovenox -) 80 mg SQ BID [facility] Last Admin: 07/20/18 09:19 Dose: 80 mg Ferrous Sulfate (Feosol -) 325 mg PO BID [facility] Last Admin: 07/20/18 09:18 Dose: 325 mg Mupirocin (Bactroban Ointment (For Decolonization) -) 1 applic NS BID [facility] Stop: 07/20/18 21:59 Last Admin: 07/20/18 09:18 Dose: 1 applic Warfarin Sodium (Coumadin -) 7.5 mg PO DAILY@1800 [facility] Last Admin: 07/19/18 17:56 Dose: 7.5 mg ASSESSMENT/PLAN: A 38 y.o. F w/ PMHx. of VSD surgery in 1996, presents after dizziness and syncopal episode to the ED. Pt. was admitted for unprovoked bilateral PE #Cardiovascular -Tachycardia 2/2 Bilateral PE c/w Lovenox bridge to Coumadin ICU monitoring CTA positive for b/l PE: left upper lobe anterior segmental artery, right pulmonary artery distally, right posterior basilar, right upper lobe posterior, right middle lobe segmental artery. Troponins trending down peaked at 1.5-->0.30 Echo appreciated: LV normal, impaired LV relaxation, RV severely dilated, RA mildly dilated, moderate TR. Rpt. echo show improving cardiac fxn. RV is moderately dilated and fxn is mildly reduced, mild MR and AR, moderate TR, LV is normal in EF, wall motion and function. IR will not be performing thrombectomy procedure as Rpt. echo shows resolving cardiac function. Cardiology(Dr. Chu) and IR consults appreciated -Anemia c/w Iron tablets anemia workup as outpatient Fibroid uterus and Hx. of heavy menses is likely contributory to anemia. #Pulmonary -B/l Submassive PE f/u Pelvic US for fibroids as etiology of submassive PE. c/w Coumadin with a weight based Lovenox bridge BID Pt. saturating well on room air supplemental O2 as needed to keep SpO2 above 90% #Gynecology -Fibroid Uterus US showing Uterus size of 15.8 x 12.2 x 10.3 cm; Fibroid size was measured 11.1 x 9.1 x 8.2 cm. F/U MRI is recommended for outpatient consultation in addition to Gynecology consultation. #F/E/N Regular Diet Pt. receiving weight based Lovenox BID Magnesium repleted #DVT PPx. D/C Heparin drip, started Lovenox 80mg BID Will bridge to Coumadin as per primary team. Monitor INR with therapeutic goal of 2.0-3.0. INR: 1.24 Rpt duplex (07/18/18) showed no evidence of DVT Dispo: Med/Surg Visit type - Emergency Visit Emergency Visit: Yes ED Registration Date: 07/15/18 Care time: The patient presented to the Emergency Department on the above date and was hospitalized for further evaluation of their emergent condition. - New Patient This patient is new to me today: No - Critical Care Critical Care patient: No - Discharge Referral Referred to [facility] Med P.C.: No
--- NOTE | 2018-07-20 13:21 | PN ---
Teaching Attending Note Name of Resident: Kike Steinberg ATTENDING PHYSICIAN STATEMENT I saw and evaluated the patient. I reviewed the resident's note and discussed the case with the resident. I agree with the resident's findings and plan as documented. SUBJECTIVE: No fever or chills . No abd pain , no CP ,no SOB . ambulating OBJECTIVE: NAD Cv: RRR, no MRG. No JVD Lungs: CTAB EXt : no edema or erythema . ASSESSMENT AND PLAN: 38 y/o lady with VSD repair who presented with chest pain and was found to have bilateral Pes. 1- Bilateral Unprovoked PEs . stable. No intervention indicated - cont lovenox with coumadin - follow INR - hypercoagulable w/u is needed as out pt 2- Anemia: iron def anemia: likely due to heavy menses form fibroids. - stable Hb - cont iron supp - CLINICAL NURSING DIRECTOR f/u as out pt HLOC
--- NOTE | 2018-07-20 16:16 | PN ---
Physical Exam: SUBJECTIVE: Patient seen and examined at bedside this morning. No acute events overnight. Patient received 7.5mg dose Warfarin yesterday evening (dose #2). Denies any fevers, chills, chest pain, shortness of breath, abdominal pain, nausea, vomiting, diarrhea, bruising, or bleeding. Admits resolution of calf pain B/L. Denies any complaints today. OBJECTIVE: Vital Signs Period Temp Pulse Resp BP Sys/Castrejon Pulse Ox Last 24 Hr 98 F-99.4 F 71-87 14-23 91-128/61-87 99-100 GENERAL: Patient is awake, alert, and oriented to person, place, and time. She is resting comfortably in chair. HEAD: Normocephalic. Atraumatic EYES: Pupils equal, round and reactive to light and accommodation. Extraocular movements intact. No horizontal or vertical nystagmus noted. Sclerae anicteric. EARS, NOSE, THROAT: Oropharynx clear without exudates. Moist mucous membranes. NECK: Negative neck pain to palpation or stiffness. Supple, without lymphadenopathy. No thyromegaly or thyroid nodules appreciated. LUNGS: Breath sounds equal, clear to auscultation bilaterally. Good inspiratory effort. No wheezes, and no crackles. No accessory muscle use. HEART: Regular rate and rhythm, +S1 and S2 auscultated. No murmurs or gallops appreciated. ABDOMEN: Soft, nontender to palpation X4 quadrants. Normoactive bowel sounds auscultated X 4 quadrants. No hepatosplenomegaly appreciated. No guarding, no rebound. Rectal: No hemorrhoids, or masses palpated. Minimal light brown stool in rectal vault. No gross blood noted. MUSCULOSKELETAL: Full range of motion in B/L upper and lowed extremities. Strength 5/5 B/L upper extremities in flexion, extension, abduction, adduction. Strength 5/5 lower extremities in hip flexion and extension, knee flexion and extension. 5/5 B/L plantarflexion and dorsiflexion. UPPER EXTREMITIES: 2+ radial pulses. No rashes, or lesions noted. LOWER EXTREMITIES: 2+ dorsalis pedis pulses. No rashes or lesions noted. No calf tenderness B/L. Negative Veronica's sign. No peripheral edema B/L. Left calf mild tender to palpation. No bruising noted B/L. NEUROLOGICAL: Cranial nerves II-XII intact. No gross focal deficits appreciated. PSYCHIATRIC: Cooperative patient. Appropriate mood and affect upon my encounter today. Laboratory Results - last 24 hr 07/20/18 07/20/18 07/20/18 05:30 05:30 05:30 WBC 3.7 L RBC 3.55 L Hgb 9.7 L Hct 30.0 L MCV 84.5 MCH 27.3 MCHC 32.3 RDW 16.9 H Plt Count 182 MPV 8.4 Absolute Neuts (auto) 1.5 Neutrophils % 40.3 L D Lymphocytes % 42.8 H D Monocytes % 13.8 H Eosinophils % 2.3 D Basophils % 0.8 Nucleated RBC % 0 PT with INR 14.00 H INR 1.24 H PTT (Actin FS) 30.0 Sodium 143 Potassium 4.1 Chloride 109 H Carbon Dioxide 25 Anion Gap 9 BUN 13 Creatinine 0.7 Creat Clearance w eGFR > 60 Random Glucose 89 Calcium 8.2 L Total Bilirubin 0.1 L AST 20 ALT 31 Alkaline Phosphatase 39 L Total Protein 6.1 L Albumin 2.8 L Active Medications Generic Name Dose Route Start Last Admin Trade Name Freq PRN Reason Stop Dose Admin Acetaminophen 650 mg 07/19/18 17:56 07/20/18 07:35 Tylenol - PO 650 mg Q6H PRN Administration PAIN LEVEL 1-5 Chlorhexidine Gluconate 1 applic 07/19/18 22:00 07/19/18 21:14 Hibiclens For Decolonization - TP 1 applic HS JEOVANY Administration Docusate Sodium 100 mg 07/20/18 10:00 07/20/18 09:18 Colace - PO 100 mg DAILY [facility] Administration Enoxaparin Sodium 80 mg 07/19/18 13:00 07/20/18 09:19 Lovenox - SQ 80 mg BID [facility]OVANY Administration Ferrous Sulfate 325 mg 07/19/18 22:00 07/20/18 09:18 Feosol - PO 325 mg BID [facility]ANY Administration Mupirocin 1 applic 07/19/18 22:00 07/20/18 09:18 Bactroban Ointment (For Decolonization) - NS 07/20/18 21:59 1 applic BID [facility]OVANY Administration Warfarin Sodium 7.5 mg 07/20/18 18:00 Coumadin - PO 07/20/18 18:01 ONCE@1800 [facility] Imaging: -EKG showed Sinus tachycardia, RSR prime in lead V1, S1Q3T3 noted. -CT Head showed no evidence of intracrainal hemorrhage. Positive for occipital scalp hematoma midline. -CT Chest showed multiple Pulmonary Emboli in right upper lobe, right posterior basilar, and right middle lobe segmental arteries, right pulmonary artery, left upper lobe anterior segmental artery. -Lower extremity duplex ultrasound showed no evidence of DVT in B/L legs ASSESSMENT/PLAN: 38 year old female with history of VSD repaired in (1996) presents after syncopal episode, and admitted for Pulmonary Embolism. Syncopal episode secondary to Acute sub-massive unprovoked PE -PEsI: high risk -EKG shows evidence of right heart strain. -CT Chest showed multiple pulmonary emboli, without saddle embolus. -Lower extremity ultrasound shows no evidence of DVT B/L. -Patient is saturating 99% on 2L NC. Goal is to maintain oxygen saturation above 90% -No evidence of intracranial hemorrhage on CT head. -Heparin drip discontinued. Patient started on Lovenox 80mg SQ BID for bridging therapy. -Warfarin 7.5mg today -third dose. Received 7.5mg yesterday evening. Today INR 1.24 Based on patient's current insurance situation, unclear if NOAC would be covered. Will proceed with Coumadin for anticoagulation. Discussed risks of bleeding, and importance of follow up INR with patient and she demonstrates understanding and is in agreement with the plan. -Pain control with Tylenol 650mg PO Q6 PRN for pain 1-5 -ICU/ Pulmonology consultation (Dr. Freed) appreciated: Will switch to LMWH, INR goal 2-3. Will transfer to floor. -Hematology/ Oncolgy consult (Tania Vanegas) appreciated: Will decide between initiating NOAC vs. Coumadin once IR has decided regarding thrombectomy. -IR consult discussed that no thrombectomy intervention is indicated at this time. -Transvaginal US: Leiomyoma 11.1 x 9.2 x 8.2cm. Patient will follow up with DIRECTOR GLOBAL MARKET RESEARCH outpatient. R/O Acute Coronary Syndrome -EKG showed Sinus tachycardia, RSR prime in lead V1, S1Q3T3 noted. -Troponin 0.41-> 1.50 -> 0.30 -Cardiac echo shows: LV size, thickness, and function normal. Impaired LV relaxation. RV severely dilated. No pericardial effusion. -Repeat cardiac echo unchanged from initial except for RV is moderately dilated in this study. -Cardiology consult (Dr. Chu) appreciated: No further cardiac management is warranted. Anemia -Hb 9.7 (10.3 yesterday), Hct 30.0 (31.5 yesterday). MCV 83.9 -Ferrous sulfate 325 mg PO BID -Colace 100mg daily -As per hematology consult, patient will follow up outpatient for further workup. FEN -No IV fluids, patient tolerating PO intake -Electrolytes within normal limits. Will follow CMP -Regular diet Prophylaxis -Lovenox 80mg SQ BID. Warfarin 7.5mg today. Disposition: Continue monitoring in ICU, pending telemetry transfer. Visit type - Emergency Visit Emergency Visit: Yes ED Registration Date: 07/15/18 Care time: The patient presented to the Emergency Department on the above date and was hospitalized for further evaluation of their emergent condition. - New Patient This patient is new to me today: No - Critical Care Critical Care patient: Yes Total Critical Care Time (in minutes): 30 Critical Care Statement: The care of this patient involved high complexity decision making to prevent further life threatening deterioration of the patient 's condition and/or to evaluate & treat vital organ system(s) failure or risk of failure. - Discharge Referral Referred to [facility] Med P.C.: No
[2018-07-20] MEDS ORDERED: WARFARIN NA 7.5 MG TABLET (FP) PO ONE (18:00)
[2018-07-20] MEDS: WARFARIN NA 7.5 MG TABLET (FP) PO SCH (18:40)
[2018-07-20] MEDS: CHLORHEXIDINE GLUCONATE 4% CLEANSER FOR DECOLONIZATION TP SCH (21:29)
--- NOTE | 2018-07-20 23:14 | PN ---
Progress Note (short form) - Note Progress Note: Patient seen and examined Denies any complaints Feels well AFVSS HEENT--normal Cor: RSR, No murmurs, No gallops Lungs: Clear to P&A Abd: Soft, Normal bowel sounds, No organomegaly Ext:No significant edema Abnormal Lab Results 07/21/18 07/21/18 07/21/18 05:30 05:30 05:30 WBC 3.8 L Hgb 10.1 L Hct 31.3 L RDW 17.3 H Absolute Neuts (auto) 1.4 L Neutrophils % 35.6 L Lymphocytes % 45.0 H Monocytes % 16.5 H PT with INR 17.00 H INR 1.50 H Chloride 108 H Calcium 8.2 L Active Medications Generic Name Dose Route Start Last Admin Trade Name Freq PRN Reason Stop Dose Admin Acetaminophen 650 mg 07/19/18 17:56 07/20/18 07:35 Tylenol - PO 650 mg Q6H PRN Administration PAIN LEVEL 1-5 Chlorhexidine Gluconate 1 applic 07/19/18 22:00 07/20/18 21:29 Hibiclens For Decolonization - TP 1 applic HS JEOVANY Administration Docusate Sodium 100 mg 07/20/18 10:00 07/20/18 09:18 Colace - PO 100 mg DAILY [facility] Administration Enoxaparin Sodium 80 mg 07/19/18 13:00 07/20/18 21:29 Lovenox - SQ 80 mg BID [facility]OVANY Administration Ferrous Sulfate 325 mg 07/19/18 22:00 07/20/18 21:29 Feosol - PO 325 mg BID [facility]ANY Administration Tramadol HCl 50 mg 07/21/18 01:33 07/21/18 01:40 Ultram - PO 50 mg Q8H PRN Administration PAIN LEVEL 6-10 Warfarin Sodium 7.5 mg 07/20/18 18:00 07/20/18 18:40 Coumadin - PO Not Given DAILY@1800 [facility] A/P 38-year-old female with past medical history of ventral septal defect status post repair when patient was 17 years old presents with syncope. The patient was in her usual state of health until this morning when she woke up with some left calf pain. She was walking to her cousin's home she suddenly felt dizzy and syncopized. She hit her head. Developed midsternal pleuritic chest pain radiating to the back. Reports some symptoms of breath and the patient's hypoxic to high 80 percent. No family h/o thrombophilia/no h/o immobility/surgery/injury in preceding 2-3 months/no h/o control pills , submassive PE -- ? provoked by pelvic venous stasis from enlarged uterus Echo --severely dilated/hypokinetic RV Bridging lovenox to coumadin Iron deficiency anemia -- on feosol Will need SILVERWARE SUPERVISOR follow up regarding thickened endometrium/enlarged uterus/fibroids ? will follow
[2018-07-21] MEDS ORDERED: traMADol HCL 50 MG TABLET PO PRN (01:33)
[2018-07-21 06:28] LABS: BASO % 0.7 % (0-2.0); EOS % 2.2 % (0-4.5); HEMATOCRIT 31.3 % (32.4-45.2); HEMOGLOBIN 10.1 GM/dL (10.7-15.3); MCH 27.1 pg (25.7-33.7); MCHC 32.1 g/dl (32.0-36.0); MEAN CELL VOLUME 84.5 fl (80-96); MEAN PLT VOLUME 8.7 fl (7.5-11.1); MONO % 16.5 % (3.8-10.2); NEUT % 35.6 % (42.8-82.8); PLATELET COUNT 197 K/MM3 (134-434); RBC 3.71 M/mm3 (3.60-5.2); RDW 17.3 % (11.6-15.6); WHITE BLOOD COUNT 3.8 K/mm3 (4.0-10.0)
[2018-07-21 06:47] LABS: INR 1.5 (0.83-1.09)
[2018-07-21 06:55] LABS: ANION GAP 11 MMOL/L (8-16); BLOOD UREA NITROGEN 10 mg/dL (7-18); CALCIUM 8.2 mg/dL (8.5-10.1); CHLORIDE 108 mmol/L (98-107); CO2 24 mmol/L (21-32); CREATININE 0.6 mg/dL (0.55-1.02); GLUCOSE,RANDOM 85 mg/dL (74-106); MAGNESIUM 1.9 mg/dL (1.8-2.4); PHOSPHOROUS 4.7 mg/dL (2.5-4.9); POTASSIUM 4.4 mmol/L (3.5-5.1); SODIUM 143 mmol/L (136-145)
--- NOTE | 2018-07-21 08:44 | PN ---
Progress Note (short form) - Note Progress Note: Seen and examined in the ICU remains on LMWH as bridge to coumadin awoke in the PM with chest pain: stabling though radiating through back and bilateral LE pain described as cramping currently on RA w/o SOB or CP, able to ambulate to toilet w/o distress Active Medications Acetaminophen (Tylenol -) 650 mg PO Q6H PRN PRN Reason: PAIN LEVEL 1-5 Last Admin: 07/20/18 07:35 Dose: 650 mg Chlorhexidine Gluconate (Hibiclens For Decolonization -) 1 applic TP HS [facility] Last Admin: 07/20/18 21:29 Dose: 1 applic Docusate Sodium (Colace -) 100 mg PO DAILY [facility] Last Admin: 07/20/18 09:18 Dose: 100 mg Enoxaparin Sodium (Lovenox -) 80 mg SQ BID [facility] Last Admin: 07/20/18 21:29 Dose: 80 mg Ferrous Sulfate (Feosol -) 325 mg PO BID [facility] Last Admin: 07/20/18 21:29 Dose: 325 mg Tramadol HCl (Ultram -) 50 mg PO Q8H PRN PRN Reason: PAIN LEVEL 6-10 Last Admin: 07/21/18 01:40 Dose: 50 mg Warfarin Sodium (Coumadin -) 7.5 mg PO DAILY@1800 [facility] Last Admin: 07/20/18 18:40 Dose: Not Given Vital Signs Period Temp Pulse Resp BP Sys/Castrejon Pulse Ox Last 24 Hr 98.3 F-99.4 F 76-90 16-20 90-132/58-91 100-100 Intake & Output 07/18/18 07/19/18 07/20/18 07/21/18 23:59 23:59 23:59 23:59 Intake Total 1877.2 500.2 2049 250 Output Total 600 Balance 1277.2 500.2 2049 250 Weight 78.727 kg 78.698 kg 78.727 kg 77.337 kg Exam: General: awake and alert in bed w/o distress HEENT: PERRL, no JVD noted Pulm: CTA CV: RRR Abd: SNTND Ext: WWP, bilateral R>L calf tenderness Neuro: AOx3 CBCD WBC 3.8 K/mm3 (4.0-10.0) L 07/21/18 05:30 RBC 3.71 M/mm3 (3.60-5.2) 07/21/18 05:30 Hgb 10.1 GM/dL (10.7-15.3) L 07/21/18 05:30 Hct 31.3 % (32.4-45.2) L 07/21/18 05:30 MCV 84.5 fl (80-96) 07/21/18 05:30 MCHC 32.1 g/dl (32.0-36.0) 07/21/18 05:30 RDW 17.3 % (11.6-15.6) H 07/21/18 05:30 Plt Count 197 K/MM3 (134-434) 07/21/18 05:30 MPV 8.7 fl (7.5-11.1) 07/21/18 05:30 CMP Sodium 143 mmol/L (136-145) 07/21/18 05:30 Potassium 4.4 mmol/L (3.5-5.1) 07/21/18 05:30 Chloride 108 mmol/L (98-107) H 07/21/18 05:30 Carbon Dioxide 24 mmol/L (21-32) 07/21/18 05:30 Anion Gap 11 MMOL/L (8-16) 07/21/18 05:30 BUN 10 mg/dL (7-18) 07/21/18 05:30 Creatinine 0.6 mg/dL (0.55-1.02) 07/21/18 05:30 Creat Clearance w eGFR > 60 (>60) 07/21/18 05:30 Random Glucose 85 mg/dL (74-106) 07/21/18 05:30 Calcium 8.2 mg/dL (8.5-10.1) L 07/21/18 05:30 Total Bilirubin 0.1 mg/dL (0.2-1.0) L 07/20/18 05:30 AST 20 U/L (15-37) 07/20/18 05:30 ALT 31 U/L (12-78) 07/20/18 05:30 Alkaline Phosphatase 39 U/L (45-117) L 07/20/18 05:30 Total Protein 6.1 g/dl (6.4-8.2) L 07/20/18 05:30 Albumin 2.8 g/dl (3.4-5.0) L 07/20/18 05:30 CARDIAC ENZYMES Creatine Kinase 111 IU/L (26-192) 07/16/18 10:25 Troponin I < 0.02 ng/ml (0.00-0.05) 07/21/18 05:30 ASSESSMENT AND PLAN: Acute Submassive Pulmonary Emboli appears to be unprovoked RV Strain Syncope Large Leiomyoma - repeat LE dopplers - continue anticoagulation, LMWH transition to coumadin - target INR 2-3 - O2 to keep SpO2 >90% - can monitor on floor Boerem ACNP Pulm/CCP
[2018-07-21] MEDS: DOCUSATE SODIUM 100 MG CAPSULE (FP) PO SCH (09:09)
[2018-07-21] MEDS: ENOXAPARIN NA (PORCINE) 80 MG/0.8 ML DISP.SYRIN SQ SCH ×2 (09:10→21:19)
[2018-07-21] MEDS: FERROUS SO4 325 MG TABLET (FP) PO SCH ×2 (09:10→21:19)
--- NOTE | 2018-07-21 11:40 | PN ---
Physical Exam: SUBJECTIVE: Patient seen and examined. She complained of sharp, L sided, pleuritic chest pain this morning at 6am. She currently does not complain of any pain. She denies sob, dizziness, chills, fevers, nausea ,vomiting. OBJECTIVE: Vital Signs Period Temp Pulse Resp BP Sys/Castrejon Pulse Ox Last 24 Hr 98.3 F-98.8 F 69-90 16-20 90-132/58-91 100-100 GENERAL: The patient is awake, alert, and fully oriented, in no acute distress. EYES: PERRL, extraocular movements intact, sclera anicteric ENT: oropharynx clear without exudates NECK: supple. LUNGS: Breath sounds equal, clear to auscultation bilaterally, no wheezes HEART: Regular rate and rhythm, S1, S2 without murmur, rub or gallop. ABDOMEN: Soft, nontender, nondistended, normoactive bowel sounds EXTREMITIES: 2+ pulses, warm, well-perfused, no edema. NEUROLOGICAL: Cranial nerves II through XII grossly intact Laboratory Results - last 24 hr 07/21/18 07/21/18 07/21/18 05:30 05:30 05:30 WBC 3.8 L RBC 3.71 Hgb 10.1 L Hct 31.3 L MCV 84.5 MCH 27.1 MCHC 32.1 RDW 17.3 H Plt Count 197 MPV 8.7 Absolute Neuts (auto) 1.4 L Neutrophils % 35.6 L Lymphocytes % 45.0 H Monocytes % 16.5 H Eosinophils % 2.2 Basophils % 0.7 Nucleated RBC % 0 PT with INR 17.00 H INR 1.50 H PTT (Actin FS) 32.6 Sodium Potassium Chloride Carbon Dioxide Anion Gap BUN Creatinine Creat Clearance w eGFR Random Glucose Calcium Phosphorus Magnesium Troponin I 07/21/18 05:30 WBC RBC Hgb Hct MCV MCH MCHC RDW Plt Count MPV Absolute Neuts (auto) Neutrophils % Lymphocytes % Monocytes % Eosinophils % Basophils % Nucleated RBC % PT with INR INR PTT (Actin FS) Sodium 143 Potassium 4.4 Chloride 108 H Carbon Dioxide 24 Anion Gap 11 BUN 10 Creatinine 0.6 Creat Clearance w eGFR > 60 Random Glucose 85 Calcium 8.2 L Phosphorus 4.7 Magnesium 1.9 Troponin I < 0.02 Active Medications Generic Name Dose Route Start Last Admin Trade Name Freq PRN Reason Stop Dose Admin Acetaminophen 650 mg 07/19/18 17:56 07/20/18 07:35 Tylenol - PO 650 mg Q6H PRN Administration PAIN LEVEL 1-5 Chlorhexidine Gluconate 1 applic 07/19/18 22:00 07/20/18 21:29 Hibiclens For Decolonization - TP 1 applic HS JEOVANY Administration Docusate Sodium 100 mg 07/20/18 10:00 07/21/18 09:09 Colace - PO 100 mg DAILY [facility]ANY Administration Enoxaparin Sodium 80 mg 07/19/18 13:00 07/21/18 09:10 Lovenox - SQ 80 mg BID JEOVANY Administration Ferrous Sulfate 325 mg 07/19/18 22:00 07/21/18 09:10 Feosol - PO 325 mg BID [facility]OVANY Administration Tramadol HCl 50 mg 07/21/18 01:33 07/21/18 01:40 Ultram - PO 50 mg Q8H PRN Administration PAIN LEVEL 6-10 Warfarin Sodium 7.5 mg 07/20/18 18:00 07/20/18 18:40 Coumadin - PO Not Given DAILY@1800 [facility] ASSESSMENT/PLAN: 38 yo F with history of VSD repaired in (1996) presents after syncopal episode, and admitted for PE. #B/L PE -unprovoked -on Lovenox, Coumadin 7.5 -INR 1.5 -Goal INR 2-3 -hypercoaguable workup outpatient #Iron deficiency Anemia -likely from heavy menses -fibroids on US -hgb Stable -monitor H&H -cont Iron -FU OBgyn outpatient #FEN -No IV fluids -replete as needed -regular diet #PPx -Lovenox Dispo: awaiting therapeutic INR 2-3 Visit type - Emergency Visit Emergency Visit: Yes ED Registration Date: 07/15/18 Care time: The patient presented to the Emergency Department on the above date and was hospitalized for further evaluation of their emergent condition. - New Patient This patient is new to me today: Yes Date on this admission: 07/21/18 - Critical Care Critical Care patient: No
--- NOTE | 2018-07-21 13:19 | PN ---
Teaching Attending Note Name of Resident: Chana Ramos (nabil) ATTENDING PHYSICIAN STATEMENT I saw and evaluated the patient. I reviewed the resident's note and discussed the case with the resident. I agree with the resident's findings and plan as documented. SUBJECTIVE: No fever or chill . has no cp or SOB . last night developed L sided sharp CP, over an area of 1 cm, which lasted for 15 m in then resolved. it was not accompanied with any SOB .EKG was obtained last night ( can't find in paper chart and not uploaded in computer) , trop was nL. pain has not recurred since. OBJECTIVE: NAD Cv: RRR, no MRG. Lungs: CTAB EXt : no edema or erythema . ASSESSMENT AND PLAN: 38 y/o lady with VSD repair who presented with chest pain and was found to have bilateral Pes. 1- Bilateral Unprovoked PEs. stable. No intervention indicated - cont lovenox with coumadin . INR 1.5 today - follow INR - hypercoagulable w/u is needed as out pt. 2- Anemia: iron def anemia: likely due to heavy menses form fibroids. - cont iron supp - [facility] f/u as out pt HLOC
[2018-07-21] MEDS: WARFARIN NA 7.5 MG TABLET (FP) PO SCH (16:59)
[2018-07-21] MEDS: CHLORHEXIDINE GLUCONATE 4% CLEANSER FOR DECOLONIZATION TP SCH (21:19)
[2018-07-22 06:30] LABS: HEMATOCRIT 30.4 % (32.4-45.2); MCH 27.9 pg (25.7-33.7); MCHC 32.8 g/dl (32.0-36.0); MEAN CELL VOLUME 85.1 fl (80-96); MEAN PLT VOLUME 8.7 fl (7.5-11.1); PLATELET COUNT 198 K/MM3 (134-434); RBC 3.58 M/mm3 (3.60-5.2); RDW 17.6 % (11.6-15.6); WHITE BLOOD COUNT 3.3 K/mm3 (4.0-10.0)
[2018-07-22 06:32] LABS: INR 1.39 (0.83-1.09); PROTHROMBIN TIME (PATIENT) 15.7 SEC (9.7-13.0)
[2018-07-22 06:44] LABS: MAGNESIUM 1.8 mg/dL (1.8-2.4); PHOSPHOROUS 4.4 mg/dL (2.5-4.9)
[2018-07-22] MEDS ORDERED: PT OWN MED DRAWER 7, Y5N ONE (08:30)
[2018-07-22] MEDS: DOCUSATE SODIUM 100 MG CAPSULE (FP) PO SCH (09:02)
[2018-07-22] MEDS: FERROUS SO4 325 MG TABLET (FP) PO SCH ×2 (09:02→21:16)
[2018-07-22] MEDS: ENOXAPARIN NA (PORCINE) 80 MG/0.8 ML DISP.SYRIN SQ SCH ×2 (09:02→21:16)
[2018-07-22] MEDS ORDERED: HYDROCORTISONE 1% TOPICAL CREAM 30 GM TUBE TP PRN (09:27)
--- NOTE | 2018-07-22 09:30 | PN ---
Progress Note (short form) - Note Progress Note: Subjective: no cp or fever or chills. No palpitations.rash at site of leads Objective: Vital Signs: Last Vital Signs Temp Pulse Resp BP Pulse Ox 98.3 F 76 16 94/68 100 07/22/18 06:00 07/22/18 08:00 07/22/18 09:00 07/22/18 08:00 07/22/18 09:00 Laboratory Results - last 24 hr 07/22/18 07/22/18 07/22/18 05:30 05:30 05:30 WBC 3.3 L RBC 3.58 L Hgb 10.0 L Hct 30.4 L MCV 85.1 MCH 27.9 MCHC 32.8 RDW 17.6 H Plt Count 198 MPV 8.7 PT with INR 15.70 H INR 1.39 H Phosphorus 4.4 Magnesium 1.8 Physical Exam: NAD Cv: RRR, no MRG. Lungs: CTAB EXt : no edema or erythema . rash on upper chest and upper back at site of leads . ASSESSMENT AND PLAN: 38 y/o lady with VSD repair who presented with chest pain and was found to have bilateral Pes. 1- Bilateral Unprovoked PEs. stable. No intervention indicated - cont lovenox with coumadin .give 10 mg of couamdin tonight - follow INR - hypercoagulable w/u is needed as out pt. 2- Anemia: iron def anemia: likely due to heavy menses form fibroids. 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 start hydrocortisone cream HLOC . Visit type - Emergency Visit Emergency Visit: Yes ED Registration Date: 07/15/18 Care time: The patient presented to the Emergency Department on the above date and was hospitalized for further evaluation of their emergent condition. - New Patient This patient is new to me today: No - Critical Care Critical Care patient: No - Discharge Referral Referred to [facility] Med P.C.: No
--- NOTE | 2018-07-22 09:38 | PN ---
Progress Note (short form) - Note Progress Note: Seen and examined in the ICU No CP, SOB, cough or wheezing awaiting floor bed cont on LMWH and coumadin Current Medications Acetaminophen (Tylenol -) 650 mg PO Q6H PRN PRN Reason: PAIN LEVEL 1-5 Last Admin: 07/20/18 07:35 Dose: 650 mg Chlorhexidine Gluconate (Hibiclens For Decolonization -) 1 applic TP HS [facility] Last Admin: 07/21/18 21:19 Dose: 1 applic Docusate Sodium (Colace -) 100 mg PO DAILY [facility] Last Admin: 07/22/18 09:02 Dose: 100 mg Enoxaparin Sodium (Lovenox -) 80 mg SQ BID [facility] Last Admin: 07/22/18 09:02 Dose: 80 mg Ferrous Sulfate (Feosol -) 325 mg PO BID [facility] Last Admin: 07/22/18 09:02 Dose: 325 mg Hydrocortisone (Hytone 1% Cream -) 1 applic TP BID PRN PRN Reason: FOR ITCHING Tramadol HCl (Ultram -) 50 mg PO Q8H PRN PRN Reason: PAIN LEVEL 6-10 Last Admin: 07/21/18 01:40 Dose: 50 mg Warfarin Sodium (Coumadin -) 7.5 mg PO DAILY@1800 [facility] Last Admin: 07/21/18 16:59 Dose: 7.5 mg Warfarin Sodium (Coumadin -) 2.5 mg PO ONCE@1800 ONE Stop: 07/22/18 18:01 Vital Signs Period Temp Pulse Resp BP Sys/Castrejon Pulse Ox Last 24 Hr 98 F-98.4 F 69-104 12-22 94-123/58-79 100-100 Intake & Output 07/19/18 07/20/18 07/21/18 07/22/18 23:59 23:59 23:59 23:59 Intake Total 500.2 0 710 250 Balance 500.2 0 710 250 Weight 78.698 kg 78.727 kg 77.337 kg Exam: General: awake and alert in bed w/o distress HEENT: PERRL, no JVD noted Pulm: CTA CV: RRR Abd: SNTND Ext: WWP, bilateral R>L calf tenderness Neuro: AOx3 CBC, BMP 07/22/18 05:30 07/21/18 05:30 ASSESSMENT AND PLAN: Acute Submassive Pulmonary Emboli appears to be unprovoked RV Strain Syncope Large Leiomyoma - continue anticoagulation, LMWH transition to coumadin - target INR 2-3 - O2 to keep SpO2 >90% - can monitor on tele floor Tjrem ACNP Pulm/CCP
[2018-07-22 10:43] LABS: INR 1.51 (0.83-1.09); PROTHROMBIN TIME (PATIENT) 17.1 SEC (9.7-13.0)
[2018-07-22] MEDS: WARFARIN NA 7.5 MG TABLET (FP) PO SCH (17:03)
[2018-07-22] MEDS ORDERED: WARFARIN NA 2.5 MG TABLET (FP) PO ONE (18:00)
[2018-07-22] MEDS: CHLORHEXIDINE GLUCONATE 4% CLEANSER FOR DECOLONIZATION TP SCH (21:17)
[2018-07-23 07:17] LABS: CHLORIDE 107 mmol/L (98-107); POTASSIUM 4.1 mmol/L (3.5-5.1); SODIUM 139 mmol/L (136-145)
[2018-07-23 07:25] LABS: ALK PHOS 44 U/L (45-117); ANION GAP 7 MMOL/L (8-16); BILIRUBIN,TOTAL 0.4 mg/dL (0.2-1.0); BLOOD UREA NITROGEN 12 mg/dL (7-18); CALCIUM 8.1 mg/dL (8.5-10.1); CO2 25 mmol/L (21-32); CREATININE 0.8 mg/dL (0.55-1.02); GLUCOSE,RANDOM 96 mg/dL (74-106); SGOT/AST 40 U/L (15-37); SGPT/ALT 69 U/L (12-78); TOT PROT 6.9 g/dl (6.4-8.2)
[2018-07-23 08:29] LABS: HEMATOCRIT 30.4 % (32.4-45.2); HEMOGLOBIN 9.9 GM/dL (10.7-15.3); MCH 27.5 pg (25.7-33.7); MCHC 32.7 g/dl (32.0-36.0); MEAN CELL VOLUME 84.3 fl (80-96); MEAN PLT VOLUME 8.9 fl (7.5-11.1); PLATELET COUNT 243 K/MM3 (134-434); RDW 17.7 % (11.6-15.6); WHITE BLOOD COUNT 3.5 K/mm3 (4.0-10.0)
--- NOTE | 2018-07-23 08:43 | PN ---
Physical Exam: SUBJECTIVE: Patient seen and examined at bedside this morning. No acute events overnight. Patient received 10mg dose Warfarin yesterday evening. Denies any fevers, chills, chest pain, shortness of breath, abdominal pain, nausea, vomiting, diarrhea, bruising, or bleeding. Denies any pain, or acute complaints today. OBJECTIVE: Vital Signs Period Temp Pulse Resp BP Sys/Castrejon Pulse Ox Last 24 Hr 98.0 F-98.4 F 72-88 16-18 95-140/53-75 100-100 GENERAL: Patient is awake, alert, and oriented to person, place, and time. She is resting comfortably in chair. HEAD: Normocephalic. Atraumatic EYES: Pupils equal, round and reactive to light and accommodation. Extraocular movements intact. No horizontal or vertical nystagmus noted. Sclerae anicteric. EARS, NOSE, THROAT: Oropharynx clear without exudates. Moist mucous membranes. NECK: Negative neck pain to palpation or stiffness. Supple, without lymphadenopathy. No thyromegaly or thyroid nodules appreciated. LUNGS: Breath sounds equal, clear to auscultation bilaterally. Good inspiratory effort. No wheezes, and no crackles. No accessory muscle use. HEART: Regular rate and rhythm, +S1 and S2 auscultated. No murmurs or gallops appreciated. ABDOMEN: Soft, nontender to palpation X4 quadrants. Normoactive bowel sounds auscultated X 4 quadrants. No hepatosplenomegaly appreciated. No guarding, no rebound. Rectal: No hemorrhoids, or masses palpated. Minimal light brown stool in rectal vault. No gross blood noted. MUSCULOSKELETAL: Full range of motion in B/L upper and lowed extremities. Strength 5/5 B/L upper extremities in flexion, extension, abduction, adduction. Strength 5/5 lower extremities in hip flexion and extension, knee flexion and extension. 5/5 B/L plantarflexion and dorsiflexion. UPPER EXTREMITIES: 2+ radial pulses. No rashes, or lesions noted. LOWER EXTREMITIES: 2+ dorsalis pedis pulses. No rashes or lesions noted. No calf tenderness B/L. Negative Veronica's sign. No peripheral edema B/L. Left calf mild tender to palpation. No bruising noted B/L. NEUROLOGICAL: Cranial nerves II-XII intact. No gross focal deficits appreciated. PSYCHIATRIC: Cooperative patient. Appropriate mood and affect upon my encounter today. Laboratory Results - last 24 hr 07/22/18 07/23/18 07/23/18 10:13 05:30 05:30 WBC 3.5 L RBC 3.60 Hgb 9.9 L Hct 30.4 L MCV 84.3 MCH 27.5 MCHC 32.7 RDW 17.7 H Plt Count 243 D MPV 8.9 PT with INR 17.10 H INR 1.51 H Sodium 139 Potassium 4.1 Chloride 107 Carbon Dioxide 25 Anion Gap 7 L BUN 12 Creatinine 0.8 Creat Clearance w eGFR > 60 Random Glucose 96 Calcium 8.1 L Total Bilirubin 0.4 AST 40 H ALT 69 Alkaline Phosphatase 44 L Total Protein 6.9 Albumin 3.0 L Active Medications Generic Name Dose Route Start Last Admin Trade Name Freq PRN Reason Stop Dose Admin Acetaminophen 650 mg 07/19/18 17:56 07/20/18 07:35 Tylenol - PO 650 mg Q6H PRN Administration PAIN LEVEL 1-5 Chlorhexidine Gluconate 1 applic 07/19/18 22:00 07/22/18 21:17 Hibiclens For Decolonization - TP 1 applic HS JEOVANY Administration Docusate Sodium 100 mg 07/20/18 10:00 07/22/18 09:02 Colace - PO 100 mg DAILY JEOVANY Administration Enoxaparin Sodium 80 mg 07/19/18 13:00 07/22/18 21:16 Lovenox - SQ 80 mg BID JEOVANY Administration Ferrous Sulfate 325 mg 07/19/18 22:00 07/22/18 21:16 Feosol - PO 325 mg BID JEOVANY Administration Hydrocortisone 1 applic 07/22/18 09:27 Hytone 1% Cream - TP BID PRN FOR ITCHING Tramadol HCl 50 mg 07/21/18 01:33 07/21/18 01:40 Ultram - PO 50 mg Q8H PRN Administration PAIN LEVEL 6-10 Warfarin Sodium 7.5 mg 07/20/18 18:00 07/22/18 17:03 Coumadin - PO 7.5 mg DAILY@1800 JEOVANY Administration Imaging: -EKG showed Sinus tachycardia, RSR prime in lead V1, S1Q3T3 noted. -CT Head showed no evidence of intracrainal hemorrhage. Positive for occipital scalp hematoma midline. -CT Chest showed multiple Pulmonary Emboli in right upper lobe, right posterior basilar, and right middle lobe segmental arteries, right pulmonary artery, left upper lobe anterior segmental artery. -Lower extremity duplex ultrasound showed no evidence of DVT in B/L legs ASSESSMENT/PLAN: 38 year old female with history of VSD repaired in (1996) presents after syncopal episode, and admitted for Pulmonary Embolism. Syncopal episode secondary to Acute sub-massive unprovoked PE -PEsI: high risk -EKG shows evidence of right heart strain. -CT Chest showed multiple pulmonary emboli, without saddle embolus. -Lower extremity ultrasound shows no evidence of DVT B/L. -Patient is saturating 99% on 2L NC. Goal is to maintain oxygen saturation above 90% -No evidence of intracranial hemorrhage on CT head. -Heparin drip discontinued. Patient started on Lovenox 80mg SQ BID for bridging therapy. -Warfarin 10mg today. Received 10mg yesterday evening. Today INR is Based on patient's current insurance situation, unclear if NOAC would be covered. Will proceed with Coumadin for anticoagulation. Discussed risks of bleeding, and importance of follow up INR with patient and she demonstrates understanding and is in agreement with the plan. -Pain control with Tylenol 650mg PO Q6 PRN for pain 1-5 -ICU/ Pulmonology consultation (Dr. Freed) appreciated: Will switch to LMWH, INR goal 2-3. Will transfer to floor. -Hematology/ Oncolgy consult (Tania Vanegas) appreciated: Will decide between initiating NOAC vs. Coumadin once IR has decided regarding thrombectomy. -IR consult discussed that no thrombectomy intervention is indicated at this time. -Transvaginal US: Leiomyoma 11.1 x 9.2 x 8.2cm. Patient will follow up with BINDERY MACHINE FEEDER OFFBEARER outpatient. R/O Acute Coronary Syndrome -EKG showed Sinus tachycardia, RSR prime in lead V1, S1Q3T3 noted. -Troponin 0.41-> 1.50 -> 0.30 -Cardiac echo shows: LV size, thickness, and function normal. Impaired LV relaxation. RV severely dilated. No pericardial effusion. -Repeat cardiac echo unchanged from initial except for RV is moderately dilated in this study. -Cardiology consult (Dr. Chu) appreciated: No further cardiac management is warranted. Anemia -Hb ( yesterday), Hct ( yesterday). MCV 83.9 -Ferrous sulfate 325 mg PO BID -Colace 100mg daily -As per hematology consult, patient will follow up outpatient for further workup. FEN -No IV fluids, patient tolerating PO intake -Electrolytes within normal limits. Will follow CMP -Regular diet Prophylaxis -Lovenox 80mg SQ BID. Warfarin 10mg today. Disposition: Continue monitoring in ICU, pending telemetry transfer. Visit type - Emergency Visit Emergency Visit: Yes ED Registration Date: 07/15/18 Care time: The patient presented to the Emergency Department on the above date and was hospitalized for further evaluation of their emergent condition. - New Patient This patient is new to me today: No - Critical Care Critical Care patient: No - Discharge Referral Referred to [facility] Med P.C.: No
[2018-07-23 08:53] LABS: INR 1.63 (0.83-1.09); PROTHROMBIN TIME (PATIENT) 18.4 SEC (9.7-13.0)
[2018-07-23] MEDS ORDERED: WARFARIN NA 2.5 MG TABLET (FP) PO ONE ×2 (10:08→18:00)
[2018-07-23] MEDS: DOCUSATE SODIUM 100 MG CAPSULE (FP) PO SCH (10:15)
[2018-07-23] MEDS: FERROUS SO4 325 MG TABLET (FP) PO SCH ×2 (10:15→21:11)
[2018-07-23] MEDS: ENOXAPARIN NA (PORCINE) 80 MG/0.8 ML DISP.SYRIN SQ SCH ×2 (10:16→21:11)
--- NOTE | 2018-07-23 10:46 | EKG ---
Test Reason : Blood Pressure : / mmHG Vent. Rate : 067 BPM Atrial Rate : 067 BPM P-R Int : 126 ms QRS Dur : 076 ms QT Int : 424 ms P-R-T Axes : 044 042 029 degrees QTc Int : 448 ms NORMAL SINUS RHYTHM NORMAL ECG WHEN COMPARED WITH ECG OF 21-JUL-2018 06:25, NO SIGNIFICANT CHANGE WAS FOUND Confirmed by SAMANTHA SOLANO MD ([id number]) on 07/23/2018 10:45:43 AM Referred By: Rsoa HERNÁNDEZ Confirmed By:SAMANTHA SOLANO MD
--- NOTE | 2018-07-23 11:09 | EKG ---
Test Reason : Blood Pressure : / mmHG Vent. Rate : 071 BPM Atrial Rate : 071 BPM P-R Int : 130 ms QRS Dur : 074 ms QT Int : 410 ms P-R-T Axes : 044 046 040 degrees QTc Int : 445 ms NORMAL SINUS RHYTHM NONSPECIFIC T WAVE ABNORMALITY WHEN COMPARED WITH ECG OF 15-JUL-2018 18:30, VENT. RATE HAS DECREASED T WAVE VARIATION Confirmed by SAMANTHA SOLANO MD ([id number]) on 07/23/2018 11:08:59 AM Referred By: Confirmed By:SAMANTHA SOLANO MD
--- NOTE | 2018-07-23 13:41 | PN ---
Progress Note (short form) - Note Progress Note: Feels overall better. No CP or SOB. No hemoptysis. Ambulating without any symptoms. Intake & Output 07/20/18 07/21/18 07/22/18 07/23/18 23:59 23:59 23:59 23:59 Intake Total 2049 710 1010 200 Balance 2049 710 1010 200 Weight 173 lb 9 oz 170 lb 8 oz 170 lb 2 oz Last Vital Signs Temp Pulse Resp BP Pulse Ox 99.1 F 70 18 158/81 100 07/23/18 10:00 07/23/18 10:00 07/23/18 10:00 07/23/18 10:00 07/23/18 09:00 Active Medications Acetaminophen (Tylenol -) 650 mg PO Q6H PRN PRN Reason: PAIN LEVEL 1-5 Last Admin: 07/20/18 07:35 Dose: 650 mg Chlorhexidine Gluconate (Hibiclens For Decolonization -) 1 applic TP HS [facility] Last Admin: 07/22/18 21:17 Dose: 1 applic Docusate Sodium (Colace -) 100 mg PO DAILY [facility] Last Admin: 07/23/18 10:15 Dose: 100 mg Enoxaparin Sodium (Lovenox -) 80 mg SQ BID [facility] Last Admin: 07/23/18 10:16 Dose: 80 mg Ferrous Sulfate (Feosol -) 325 mg PO BID [facility] Last Admin: 07/23/18 10:15 Dose: 325 mg Hydrocortisone (Hytone 1% Cream -) 1 applic TP BID PRN PRN Reason: FOR ITCHING Tramadol HCl (Ultram -) 50 mg PO Q8H PRN PRN Reason: PAIN LEVEL 6-10 Last Admin: 07/21/18 01:40 Dose: 50 mg Warfarin Sodium (Coumadin -) 7.5 mg PO DAILY@1800 [facility] Last Admin: 07/22/18 17:03 Dose: 7.5 mg Warfarin Sodium (Coumadin -) 2.5 mg PO NOW ONE Stop: 07/23/18 18:01 Exam: General: awake and alert in bed w/o distress HEENT: PERRL, no JVD noted Pulm: CTA CV: RRR Abd: SNTND Ext: (+) PP Neuro: AOx3 Laboratory Results - last 24 hr 07/23/18 07/23/18 07/23/18 05:30 05:30 07:55 WBC 3.5 L RBC 3.60 Hgb 9.9 L Hct 30.4 L MCV 84.3 MCH 27.5 MCHC 32.7 RDW 17.7 H Plt Count 243 D MPV 8.9 PT with INR 18.40 H INR 1.63 H Sodium 139 Potassium 4.1 Chloride 107 Carbon Dioxide 25 Anion Gap 7 L BUN 12 Creatinine 0.8 Creat Clearance w eGFR > 60 Random Glucose 96 Calcium 8.1 L Total Bilirubin 0.4 AST 40 H ALT 69 Alkaline Phosphatase 44 L Total Protein 6.9 Albumin 3.0 L ASSESSMENT AND PLAN: Acute Submassive Pulmonary Emboli: (?) provoked due to large Leiomyoma RV Strain Syncope - Noted LMWH & coumadin: (?) NOAC - O2 to keep SpO2 >90% - Telemetry monitoring Dr Ahmadi
--- NOTE | 2018-07-23 13:42 | PN ---
Teaching Attending Note Name of Resident: Kike Steinberg ATTENDING PHYSICIAN STATEMENT I saw and evaluated the patient. I reviewed the resident's note and discussed the case with the resident. I agree with the resident's findings and plan as documented. SUBJECTIVE: No fever or chills. No abd pain, no PC , no SOB. OBJECTIVE: NAD Cv: RRR, no MRG. Lungs: CTAB EXt: no edema or erythema . ASSESSMENT AND PLAN: 38 y/o lady with VSD repair who presented with chest pain and was found to have bilateral Pes. 1- Bilateral Unprovoked PEs. stable. No intervention indicated - cont lovenox with coumadin .give 10 mg of couamdin tonight again - follow INR - hypercoagulable w/u is needed as out pt. 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 hydrocortisone cream pRN HLOC .
[2018-07-23] MEDS: WARFARIN NA 7.5 MG TABLET (FP) PO SCH (17:00)
[2018-07-23] MEDS: CHLORHEXIDINE GLUCONATE 4% CLEANSER FOR DECOLONIZATION TP SCH (21:11)
[2018-07-24 07:11] LABS: BASO % 1.4 % (0-2.0); HEMATOCRIT 30.7 % (32.4-45.2); HEMOGLOBIN 9.8 GM/dL (10.7-15.3); LYMPH % 45.5 % (8-40); MCH 27.2 pg (25.7-33.7); MCHC 31.8 g/dl (32.0-36.0); MEAN CELL VOLUME 85.5 fl (80-96); MEAN PLT VOLUME 8.4 fl (7.5-11.1); MONO % 15.8 % (3.8-10.2); NEUT % 36.3 % (42.8-82.8); PLATELET COUNT 222 K/MM3 (134-434); RBC 3.58 M/mm3 (3.60-5.2); WHITE BLOOD COUNT 3.2 K/mm3 (4.0-10.0)
[2018-07-24 07:43] LABS: ANION GAP 7 MMOL/L (8-16); BLOOD UREA NITROGEN 11 mg/dL (7-18); CHLORIDE 111 mmol/L (98-107); CO2 25 mmol/L (21-32); GLUCOSE,RANDOM 92 mg/dL (74-106); POTASSIUM 4.3 mmol/L (3.5-5.1); SODIUM 143 mmol/L (136-145)
[2018-07-24 07:44] LABS: CREATININE 0.7 mg/dL (0.55-1.02)
[2018-07-24 09:21] LABS: INR 1.87 (0.83-1.09); PROTHROMBIN TIME (PATIENT) 21.1 SEC (9.7-13.0)
--- NOTE | 2018-07-24 09:37 | PN ---
Physical Exam: SUBJECTIVE: Patient seen and examined at bedside. Admits new back pain in left upper thoracic back medial to scapula. States pain is worse with movement and deep breathing. Patient received 10mg dose Warfarin yesterday evening. Denies any fevers, chills, chest pain, shortness of breath, abdominal pain, nausea, vomiting, diarrhea, bruising, or bleeding. OBJECTIVE: Vital Signs Period Temp Pulse Resp BP Sys/Castrejon Pulse Ox Last 24 Hr 98 F-99.1 F 70-93 18-20 101-158/54-81 97-97 GENERAL: Patient is awake, alert, and oriented to person, place, and time. She is resting comfortably in bed HEAD: Normocephalic. Atraumatic. EYES: Pupils equal, round and reactive to light and accommodation. Extraocular movements intact. Sclerae anicteric. EARS, NOSE, THROAT: Oropharynx clear without exudates. Moist mucous membranes. NECK: Negative neck pain to palpation or stiffness. Supple, without lymphadenopathy. No thyromegaly or thyroid nodules appreciated. LUNGS: Breath sounds equal, clear to auscultation bilaterally. Good inspiratory effort. No wheezes, and no crackles. No accessory muscle use. HEART: Regular rate and rhythm, +S1 and S2 auscultated. No murmurs or gallops appreciated. ABDOMEN: Soft, nontender to palpation X4 quadrants. Normoactive bowel sounds auscultated X 4 quadrants. No hepatosplenomegaly appreciated. No guarding, no rebound. MUSCULOSKELETAL: Full range of motion in B/L upper and lowed extremities. Strength 5/5 B/L upper extremities in flexion, extension, abduction, adduction. Strength 5/5 lower extremities in hip flexion and extension, knee flexion and extension. 5/5 B/L plantarflexion and dorsiflexion. UPPER EXTREMITIES: 2+ radial pulses. No rashes, or lesions noted. LOWER EXTREMITIES: 2+ dorsalis pedis pulses. No rashes or lesions noted. No calf tenderness B/L. No peripheral edema B/L. No bruising noted B/L. NEUROLOGICAL: Cranial nerves II-XII intact. No gross focal deficits appreciated. PSYCHIATRIC: Cooperative patient. Appropriate mood and affect upon my encounter today. Laboratory Results - last 24 hr 07/24/18 07/24/18 07/24/18 05:30 05:30 05:30 WBC 3.2 L RBC 3.58 L Hgb 9.8 L Hct 30.7 L MCV 85.5 MCH 27.2 MCHC 31.8 L RDW 18.0 H Plt Count 222 MPV 8.4 Absolute Neuts (auto) 1.2 L Neutrophils % 36.3 L Lymphocytes % 45.5 H Monocytes % 15.8 H Eosinophils % 1.0 Basophils % 1.4 Nucleated RBC % 0 PT with INR 21.10 H INR 1.87 H Sodium 143 Potassium 4.3 Chloride 111 H Carbon Dioxide 25 Anion Gap 7 L BUN 11 Creatinine 0.7 Creat Clearance w eGFR > 60 Random Glucose 92 Calcium 8.0 L Active Medications Generic Name Dose Route Start Last Admin Trade Name Freq PRN Reason Stop Dose Admin Acetaminophen 650 mg 07/19/18 17:56 07/20/18 07:35 Tylenol - PO 650 mg Q6H PRN Administration PAIN LEVEL 1-5 Chlorhexidine Gluconate 1 applic 07/19/18 22:00 07/23/18 21:11 Hibiclens For Decolonization - TP Not Given HS [facility] Docusate Sodium 100 mg 07/20/18 10:00 07/23/18 10:15 Colace - PO 100 mg DAILY JEOVANY Administration Enoxaparin Sodium 80 mg 07/19/18 13:00 07/23/18 21:11 Lovenox - SQ 80 mg BID JEOVANY Administration Ferrous Sulfate 325 mg 07/19/18 22:00 07/23/18 21:11 Feosol - PO 325 mg BID JEOVANY Administration Hydrocortisone 1 applic 07/22/18 09:27 Hytone 1% Cream - TP BID PRN FOR ITCHING Warfarin Sodium 7.5 mg 07/20/18 18:00 07/23/18 17:00 Coumadin - PO 7.5 mg DAILY@1800 JEOVANY Administration ASSESSMENT/PLAN: Imaging: -EKG showed Sinus tachycardia, RSR prime in lead V1, S1Q3T3 noted. -CT Head showed no evidence of intracrainal hemorrhage. Positive for occipital scalp hematoma midline. -CT Chest showed multiple Pulmonary Emboli in right upper lobe, right posterior basilar, and right middle lobe segmental arteries, right pulmonary artery, left upper lobe anterior segmental artery. -Lower extremity duplex ultrasound showed no evidence of DVT in B/L legs ASSESSMENT/PLAN: 38 year old female with history of VSD repaired in (1996) presents after syncopal episode, and admitted for Pulmonary Embolism. Syncopal episode secondary to Acute sub-massive unprovoked PE -Patient is saturating 99% room air. Goal is to maintain oxygen saturation above 90% -Lovenox 80mg SQ BID -Warfarin 7.5mg today. Received 10mg yesterday evening. Today INR is 1.87 -Pain control with Tylenol 650mg PO Q6 PRN for pain 1-5 -Patient will follow-up outpatient for thrombophilia workup. Leiomyoma -Transvaginal US showed Leiomyoma 11.1 x 9.2 x 8.2cm. -Patient will follow-up with TECHNICAL SOLUTIONS ENGINEER outpatient. R/O Acute Coronary Syndrome -EKG showed Sinus tachycardia, RSR prime in lead V1, S1Q3T3 noted. -Troponins tended down 0.41-> 1.50 -> 0.30 -Cardiology consult (Dr. Chu) appreciated: No further cardiac management is warranted. Anemia -Hb 9.8 Hct 30.7 -Ferrous sulfate 325 mg PO BID -Colace 100mg daily -Patient will follow up outpatient for further workup. FEN -No IV fluids, patient tolerating PO intake -Electrolytes within normal limits. Will follow CMP -Regular diet Prophylaxis -Lovenox 80mg SQ BID. Warfarin 7.5mg today. Disposition: Continue monitoring telemetry floor. Visit type - Emergency Visit Emergency Visit: Yes ED Registration Date: 07/15/18 Care time: The patient presented to the Emergency Department on the above date and was hospitalized for further evaluation of their emergent condition. - New Patient This patient is new to me today: No - Critical Care Critical Care patient: No - Discharge Referral Referred to [facility] Med P.C.: No
[2018-07-24] MEDS: DOCUSATE SODIUM 100 MG CAPSULE (FP) PO SCH (09:57)
[2018-07-24] MEDS: ENOXAPARIN NA (PORCINE) 80 MG/0.8 ML DISP.SYRIN SQ SCH ×2 (09:57→21:57)
[2018-07-24] MEDS: FERROUS SO4 325 MG TABLET (FP) PO SCH ×2 (09:57→21:57)
--- NOTE | 2018-07-24 11:07 | PN ---
Progress Note, Physician History of Present Illness: PULMONARY ALERT,NO DISTRESS,-CP,-SOB - Current Medication List Current Medications: Active Medications Acetaminophen (Tylenol -) 650 mg PO Q6H PRN PRN Reason: PAIN LEVEL 1-5 Last Admin: 07/20/18 07:35 Dose: 650 mg Chlorhexidine Gluconate (Hibiclens For Decolonization -) 1 applic TP HS [facility] Last Admin: 07/23/18 21:11 Dose: Not Given Docusate Sodium (Colace -) 100 mg PO DAILY [facility] Last Admin: 07/24/18 09:57 Dose: 100 mg Enoxaparin Sodium (Lovenox -) 80 mg SQ BID [facility] Last Admin: 07/24/18 09:57 Dose: 80 mg Ferrous Sulfate (Feosol -) 325 mg PO BID [facility] Last Admin: 07/24/18 09:57 Dose: 325 mg Hydrocortisone (Hytone 1% Cream -) 1 applic TP BID PRN PRN Reason: FOR ITCHING Warfarin Sodium (Coumadin -) 7.5 mg PO DAILY@1800 [facility] Last Admin: 07/23/18 17:00 Dose: 7.5 mg - Objective Vital Signs: Vital Signs Temperature 98.3 F 07/24/18 08:58 Pulse Rate 80 07/24/18 08:58 Respiratory Rate 20 07/24/18 08:59 Blood Pressure 108/60 07/24/18 08:58 O2 Sat by Pulse Oximetry (%) 97 07/24/18 08:59 Constitutional: Yes: Well Nourished, Calm Eyes: Yes: WNL HENT: Yes: WNL Neck: Yes: WNL Cardiovascular: Yes: Regular Rate and Rhythm, S1, S2 Respiratory: Yes: CTA Bilaterally Gastrointestinal: Yes: Normal Bowel Sounds, Soft Extremities: Yes: WNL Edema: No Labs: CBC, BMP 07/24/18 05:30 07/24/18 05:30 INR, PTT INR 1.87 (0.83-1.09) H 07/24/18 05:30 Problem List - Problems (1) Pulmonary embolism Code(s): I26.99 - OTHER PULMONARY EMBOLISM WITHOUT ACUTE COR PULMONALE Qualifiers: Pulmonary embolism type: other Chronicity: acute Acute cor pulmonale presence: with acute cor pulmonale Qualified Code(s): I26.09 - Other pulmonary embolism with acute cor pulmonale (2) Syncope Code(s): R55 - SYNCOPE AND COLLAPSE Assessment/Plan ASSESSMENT AND PLAN: Acute Submassive Pulmonary Emboli ? provoked RV Strain Syncope Large Leiomyoma - continue anticoagulation, can change to LMWH for transition to coumadin - target INR 2-3 - O2 to keep SpO2 >90% DR ABDI
--- NOTE | 2018-07-24 14:49 | PN ---
Teaching Attending Note Name of Resident: Kike Steinberg ATTENDING PHYSICIAN STATEMENT I saw and evaluated the patient. I reviewed the resident's note and discussed the case with the resident. I agree with the resident's findings and plan as documented. SUBJECTIVE: no fever or chills. Has no CP or SOB OBJECTIVE: NAD Cv: RRR, no MRG. Lungs: CTAB EXt: no edema or erythema . ASSESSMENT AND PLAN: 38 y/o lady with VSD repair who presented with chest pain and was found to have bilateral Pes. 1- Bilateral Unprovoked PEs. stable. - cont lovenox with coumadin give 7.5 of coumadin today - follow INR - once INR therapeutic , need an overlap for 24 hr before stopping lovenox . already received > 5 days of parenteral AC - hypercoagulable w/u is needed as out pt. 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 hydrocortisone cream pRN HLOC . at [place] , will follow with resident clinic, ( Dr. Steinberg) for INR check and with Heme .
[2018-07-24] MEDS: WARFARIN NA 7.5 MG TABLET (FP) PO SCH (18:22)
[2018-07-24] MEDS: CHLORHEXIDINE GLUCONATE 4% CLEANSER FOR DECOLONIZATION TP SCH (21:52)
[2018-07-25 06:34] LABS: BASO % 0.9 % (0-2.0); EOS % 1.1 % (0-4.5); HEMATOCRIT 32.5 % (32.4-45.2); HEMOGLOBIN 10.5 GM/dL (10.7-15.3); LYMPH % 48.7 % (8-40); MCH 27.9 pg (25.7-33.7); MCHC 32.5 g/dl (32.0-36.0); MEAN CELL VOLUME 85.9 fl (80-96); MEAN PLT VOLUME 8.4 fl (7.5-11.1); MONO % 12.9 % (3.8-10.2); NEUT % 36.4 % (42.8-82.8); PLATELET COUNT 267 K/MM3 (134-434); RBC 3.78 M/mm3 (3.60-5.2); RDW 18.5 % (11.6-15.6); WHITE BLOOD COUNT 3.3 K/mm3 (4.0-10.0)
[2018-07-25 06:52] LABS: INR 1.8 (0.83-1.09); PROTHROMBIN TIME (PATIENT) 20.3 SEC (9.7-13.0)
[2018-07-25 07:08] LABS: ANION GAP 9 MMOL/L (8-16); BLOOD UREA NITROGEN 13 mg/dL (7-18); CALCIUM 7.9 mg/dL (8.5-10.1); CHLORIDE 112 mmol/L (98-107); CO2 22 mmol/L (21-32); CREATININE 0.7 mg/dL (0.55-1.02); GLUCOSE,RANDOM 101 mg/dL (74-106); POTASSIUM 4.3 mmol/L (3.5-5.1); SODIUM 143 mmol/L (136-145)
--- NOTE | 2018-07-25 08:24 | PN ---
Physical Exam: SUBJECTIVE: Patient seen and examined at bedside. Denies any acute complaints today. Patient received 7.5mg dose Warfarin yesterday evening. Denies any fevers , chills, chest pain, shortness of breath, abdominal pain, nausea, vomiting, diarrhea, bruising, or bleeding. OBJECTIVE: Vital Signs Period Temp Pulse Resp BP Sys/Castrejon Pulse Ox Last 24 Hr 98.3 F-99.2 F 78-88 18-20 95-111/51-65 97-98 GENERAL: Patient is awake, alert, and oriented to person, place, and time. She is resting comfortably in bed HEAD: Normocephalic. Atraumatic. EYES: Pupils equal, round and reactive to light and accommodation. Extraocular movements intact. Sclerae anicteric. EARS, NOSE, THROAT: Oropharynx clear without exudates. Moist mucous membranes. NECK: Negative neck pain to palpation or stiffness. Supple, without lymphadenopathy. No thyromegaly or thyroid nodules appreciated. LUNGS: Breath sounds equal, clear to auscultation bilaterally. Good inspiratory effort. No wheezes, and no crackles. No accessory muscle use. HEART: Regular rate and rhythm, +S1 and S2 auscultated. No murmurs or gallops appreciated. ABDOMEN: Soft, nontender to palpation X4 quadrants. Normoactive bowel sounds auscultated X 4 quadrants. No hepatosplenomegaly appreciated. No guarding, no rebound. MUSCULOSKELETAL: Full range of motion in B/L upper and lowed extremities. Strength 5/5 B/L upper extremities in flexion, extension, abduction, adduction. Strength 5/5 lower extremities in hip flexion and extension, knee flexion and extension. 5/5 B/L plantarflexion and dorsiflexion. UPPER EXTREMITIES: 2+ radial pulses. No rashes, or lesions noted. LOWER EXTREMITIES: 2+ dorsalis pedis pulses. No rashes or lesions noted. No calf tenderness B/L. No peripheral edema B/L. No bruising noted B/L. NEUROLOGICAL: Cranial nerves II-XII intact. No gross focal deficits appreciated. PSYCHIATRIC: Cooperative patient. Appropriate mood and affect upon my encounter today. Laboratory Results - last 24 hr 07/24/18 07/25/18 07/25/18 05:30 05:30 05:30 WBC 3.3 L RBC 3.78 Hgb 10.5 L Hct 32.5 MCV 85.9 MCH 27.9 MCHC 32.5 RDW 18.5 H Plt Count 267 D MPV 8.4 Absolute Neuts (auto) 1.2 L Neutrophils % 36.4 L Lymphocytes % 48.7 H Monocytes % 12.9 H Eosinophils % 1.1 Basophils % 0.9 Nucleated RBC % 0 PT with INR 21.10 H 20.30 H INR 1.87 H 1.80 H Sodium Potassium Chloride Carbon Dioxide Anion Gap BUN Creatinine Creat Clearance w eGFR Random Glucose Calcium 07/25/18 05:30 WBC RBC Hgb Hct MCV MCH MCHC RDW Plt Count MPV Absolute Neuts (auto) Neutrophils % Lymphocytes % Monocytes % Eosinophils % Basophils % Nucleated RBC % PT with INR INR Sodium 143 Potassium 4.3 Chloride 112 H Carbon Dioxide 22 Anion Gap 9 BUN 13 Creatinine 0.7 Creat Clearance w eGFR > 60 Random Glucose 101 Calcium 7.9 L Active Medications Generic Name Dose Route Start Last Admin Trade Name Freq PRN Reason Stop Dose Admin Acetaminophen 650 mg 07/19/18 17:56 07/20/18 07:35 Tylenol - PO 650 mg Q6H PRN Administration PAIN LEVEL 1-5 Chlorhexidine Gluconate 1 applic 07/19/18 22:00 07/24/18 21:52 Hibiclens For Decolonization - TP Not Given HS [facility] Docusate Sodium 100 mg 07/20/18 10:00 07/24/18 09:57 Colace - PO 100 mg DAILY JEOVANY Administration Enoxaparin Sodium 80 mg 07/19/18 13:00 07/24/18 21:57 Lovenox - SQ 80 mg BID JEOVANY Administration Ferrous Sulfate 325 mg 07/19/18 22:00 07/24/18 21:57 Feosol - PO 325 mg BID JEOVANY Administration Hydrocortisone 1 applic 07/22/18 09:27 Hytone 1% Cream - TP BID PRN FOR ITCHING Warfarin Sodium 7.5 mg 07/20/18 18:00 07/24/18 18:22 Coumadin - PO 7.5 mg DAILY@1800 JEOVANY Administration Warfarin Sodium 2.5 mg 07/25/18 18:00 Coumadin - PO 07/25/18 18:01 ONCE@1800 ONE Imaging: -EKG showed Sinus tachycardia, RSR prime in lead V1, S1Q3T3 noted. -CT Head showed no evidence of intracrainal hemorrhage. Positive for occipital scalp hematoma midline. -CT Chest showed multiple Pulmonary Emboli in right upper lobe, right posterior basilar, and right middle lobe segmental arteries, right pulmonary artery, left upper lobe anterior segmental artery. -Lower extremity duplex ultrasound showed no evidence of DVT in B/L legs ASSESSMENT/PLAN: 38 year old female with history of VSD repaired in (1996) presents after syncopal episode, and admitted for Pulmonary Embolism. Syncopal episode secondary to Acute sub-massive unprovoked PE -Patient is saturating 99% room air. Goal is to maintain oxygen saturation above 90% -Lovenox 80mg SQ BID -Warfarin 10mg PO today. Received 7.5mg yesterday evening. Today INR is 1.80 -Once INR is within therapeutic range (2-3) patient will need 24 hour overlap with Lovenox before discharge. -Pain control with Tylenol 650mg PO Q6 PRN for pain 1-5 -Patient will follow-up outpatient for thrombophilia workup. Leiomyoma -Transvaginal US showed Leiomyoma 11.1 x 9.2 x 8.2cm. -Patient will follow-up with [facility]IV[facility] SORTER outpatient. R/O Acute Coronary Syndrome -EKG showed Sinus tachycardia, RSR prime in lead V1, S1Q3T3 noted. -Troponins tended down 0.41-> 1.50 -> 0.30 -Cardiology consult (Dr. Chu) appreciated: No further cardiac management is warranted. Anemia -Hb 10.5 Hct 32.5 -Ferrous sulfate 325 mg PO BID -Colace 100mg daily -Patient will follow up outpatient for further workup. FEN -No IV fluids, patient tolerating PO intake -Electrolytes within normal limits. Will follow CMP -Regular diet Prophylaxis -Lovenox 80mg SQ BID. Warfarin 10mg PO today. Disposition: Continue monitoring telemetry floor. Visit type - Emergency Visit Emergency Visit: Yes ED Registration Date: 07/15/18 Care time: The patient presented to the Emergency Department on the above date and was hospitalized for further evaluation of their emergent condition. - New Patient This patient is new to me today: No - Critical Care Critical Care patient: No - Discharge Referral Referred to [facility] Med P.C.: No
--- NOTE | 2018-07-25 08:29 | PN ---
Teaching Attending Note Name of Resident: Kike Steinberg ATTENDING PHYSICIAN STATEMENT I saw and evaluated the patient. I reviewed the resident's note and discussed the case with the resident. I agree with the resident's findings and plan as documented. SUBJECTIVE: Patient is comfortable, no shortness of breath, no nausea or vomiting. OBJECTIVE: Vital Signs Temperature 99.2 F 07/25/18 05:00 Pulse Rate 79 07/25/18 05:00 Respiratory Rate 18 07/25/18 05:00 Blood Pressure 103/52 07/25/18 05:00 O2 Sat by Pulse Oximetry (%) 98 07/24/18 21:00 CBCD WBC 3.3 K/mm3 (4.0-10.0) L 07/25/18 05:30 RBC 3.78 M/mm3 (3.60-5.2) 07/25/18 05:30 Hgb 10.5 GM/dL (10.7-15.3) L 07/25/18 05:30 Hct 32.5 % (32.4-45.2) 07/25/18 05:30 MCV 85.9 fl (80-96) 07/25/18 05:30 MCHC 32.5 g/dl (32.0-36.0) 07/25/18 05:30 RDW 18.5 % (11.6-15.6) H 07/25/18 05:30 Plt Count 267 K/MM3 (134-434) D 07/25/18 05:30 MPV 8.4 fl (7.5-11.1) 07/25/18 05:30 CMP Sodium 143 mmol/L (136-145) 07/25/18 05:30 Potassium 4.3 mmol/L (3.5-5.1) 07/25/18 05:30 Chloride 112 mmol/L (98-107) H 07/25/18 05:30 Carbon Dioxide 22 mmol/L (21-32) 07/25/18 05:30 Anion Gap 9 MMOL/L (8-16) 07/25/18 05:30 BUN 13 mg/dL (7-18) 07/25/18 05:30 Creatinine 0.7 mg/dL (0.55-1.02) 07/25/18 05:30 Creat Clearance w eGFR > 60 (>60) 07/25/18 05:30 Random Glucose 101 mg/dL (74-106) 07/25/18 05:30 Calcium 7.9 mg/dL (8.5-10.1) L 07/25/18 05:30 Total Bilirubin 0.4 mg/dL (0.2-1.0) 07/23/18 05:30 AST 40 U/L (15-37) H 07/23/18 05:30 ALT 69 U/L (12-78) 07/23/18 05:30 Alkaline Phosphatase 44 U/L (45-117) L 07/23/18 05:30 Total Protein 6.9 g/dl (6.4-8.2) 07/23/18 05:30 Albumin 3.0 g/dl (3.4-5.0) L 07/23/18 05:30 CARDIAC ENZYMES Creatine Kinase 111 IU/L (26-192) 07/16/18 10:25 Troponin I < 0.02 ng/ml (0.00-0.05) 07/21/18 05:30 Current Medications Generic Name Dose Route Start Last Admin Trade Name Freq PRN Reason Stop Dose Admin Acetaminophen 650 mg 07/19/18 17:56 07/20/18 07:35 Tylenol - PO 650 mg Q6H PRN Administration PAIN LEVEL 1-5 Chlorhexidine Gluconate 1 applic 07/19/18 22:00 07/24/18 21:52 Hibiclens For Decolonization - TP Not Given HS [facility] Docusate Sodium 100 mg 07/20/18 10:00 07/24/18 09:57 Colace - PO 100 mg DAILY JEOVANY Administration Enoxaparin Sodium 80 mg 07/19/18 13:00 07/24/18 21:57 Lovenox - SQ 80 mg BID JEOVANY Administration Ferrous Sulfate 325 mg 07/19/18 22:00 07/24/18 21:57 Feosol - PO 325 mg BID JEOVANY Administration Hydrocortisone 1 applic 07/22/18 09:27 Hytone 1% Cream - TP BID PRN FOR ITCHING Warfarin Sodium 7.5 mg 07/20/18 18:00 07/24/18 18:22 Coumadin - PO 7.5 mg DAILY@1800 JEOVANY Administration Warfarin Sodium 2.5 mg 07/25/18 18:00 Coumadin - PO 07/25/18 18:01 ONCE@1800 ONE Home Medications Medication Instructions Recorded NK [No Known Home Medication] 07/15/18 NK [No Known Home Medication] 07/15/18 PE: as per resident's note ASSESSMENT AND PLAN: Patient is a 38yo lady with VSD repair who presented with chest pain and was found to have bilateral PEs. # Bilateral Unprovoked PEs. stable. on lovenox with coumadin 10mg today. follow INR , once INR therapeutic, need an overlap for 24 hr before stopping lovenox. Hypercoagulable w/u is needed as out pt. #Iron def anemia due to fibroids, cont iron supp. 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 hydrocortisone cream pRN at DC, will follow with resident clinic, ( Dr. Steinberg) for INR check and with Heme, possible discharge in am once therapeutic. DVT px: lovenox
[2018-07-25] MEDS ORDERED: PT OWN MED DRAWER 7, Y5N ONE (09:50)
[2018-07-25] MEDS: FERROUS SO4 325 MG TABLET (FP) PO SCH ×2 (10:40→21:26)
[2018-07-25] MEDS: ENOXAPARIN NA (PORCINE) 80 MG/0.8 ML DISP.SYRIN SQ SCH ×2 (10:40→21:25)
[2018-07-25] MEDS: DOCUSATE SODIUM 100 MG CAPSULE (FP) PO SCH (10:40)
--- NOTE | 2018-07-25 11:58 | PN ---
Progress Note, Physician History of Present Illness: pulmonary alert,no distress,-cp,-sob - Current Medication List Current Medications: Active Medications Acetaminophen (Tylenol -) 650 mg PO Q6H PRN PRN Reason: PAIN LEVEL 1-5 Last Admin: 07/20/18 07:35 Dose: 650 mg Chlorhexidine Gluconate (Hibiclens For Decolonization -) 1 applic TP HS [facility] Last Admin: 07/24/18 21:52 Dose: Not Given Docusate Sodium (Colace -) 100 mg PO DAILY [facility] Last Admin: 07/25/18 10:40 Dose: 100 mg Enoxaparin Sodium (Lovenox -) 80 mg SQ BID [facility] Last Admin: 07/25/18 10:40 Dose: 80 mg Ferrous Sulfate (Feosol -) 325 mg PO BID [facility] Last Admin: 07/25/18 10:40 Dose: 325 mg Hydrocortisone (Hytone 1% Cream -) 1 applic TP BID PRN PRN Reason: FOR ITCHING Warfarin Sodium (Coumadin -) 7.5 mg PO DAILY@1800 [facility] Last Admin: 07/24/18 18:22 Dose: 7.5 mg Warfarin Sodium (Coumadin -) 2.5 mg PO ONCE@1800 ONE Stop: 07/25/18 18:01 - Objective Vital Signs: Vital Signs Temperature 99.1 F 07/25/18 10:00 Pulse Rate 86 07/25/18 10:00 Respiratory Rate 16 07/25/18 10:00 Blood Pressure 109/76 07/25/18 10:00 O2 Sat by Pulse Oximetry (%) 100 07/25/18 10:00 Constitutional: Yes: Well Nourished, Calm Eyes: Yes: WNL HENT: Yes: WNL Neck: Yes: WNL Cardiovascular: Yes: Regular Rate and Rhythm, S1, S2 Respiratory: Yes: CTA Bilaterally Gastrointestinal: Yes: Normal Bowel Sounds, Soft Extremities: Yes: WNL Edema: No Labs: CBC, BMP 07/25/18 05:30 07/25/18 05:30 INR, PTT INR 1.80 (0.83-1.09) H 07/25/18 05:30 Problem List - Problems (1) Pulmonary embolism Code(s): I26.99 - OTHER PULMONARY EMBOLISM WITHOUT ACUTE COR PULMONALE Qualifiers: Pulmonary embolism type: other Chronicity: acute Acute cor pulmonale presence: with acute cor pulmonale Qualified Code(s): I26.09 - Other pulmonary embolism with acute cor pulmonale (2) Syncope Code(s): R55 - SYNCOPE AND COLLAPSE Assessment/Plan ASSESSMENT AND PLAN: Acute Submassive Pulmonary Emboli ? provoked RV Strain Syncope Large Leiomyoma - continue anticoagulation, LMWH for transition to coumadin - target INR 2-3 - O2 to keep SpO2 >90% DR ABDI
[2018-07-25] MEDS: WARFARIN NA 7.5 MG TABLET (FP) PO SCH (17:03)
[2018-07-25] MEDS ORDERED: WARFARIN NA 2.5 MG TABLET (FP) PO ONE (18:00)
[2018-07-25] MEDS: ACETAMINOPHEN 325 MG TABLET (FP) PO PRN (19:03)
[2018-07-25] MEDS: CHLORHEXIDINE GLUCONATE 4% CLEANSER FOR DECOLONIZATION TP SCH (21:24)
[2018-07-26 06:28] LABS: HEMATOCRIT 30.1 % (32.4-45.2); HEMOGLOBIN 9.6 GM/dL (10.7-15.3); MCH 27.6 pg (25.7-33.7); MEAN CELL VOLUME 86.2 fl (80-96); MEAN PLT VOLUME 8.5 fl (7.5-11.1); PLATELET COUNT 257 K/MM3 (134-434); RBC 3.49 M/mm3 (3.60-5.2); RDW 17.8 % (11.6-15.6)
[2018-07-26 06:33] LABS: INR 1.88 (0.83-1.09); PROTHROMBIN TIME (PATIENT) 21.2 SEC (9.7-13.0)
[2018-07-26 07:31] LABS: ANION GAP 9 MMOL/L (8-16); BLOOD UREA NITROGEN 8 mg/dL (7-18); CALCIUM 7.8 mg/dL (8.5-10.1); CHLORIDE 110 mmol/L (98-107); CO2 22 mmol/L (21-32); CREATININE 0.6 mg/dL (0.55-1.02); GLUCOSE,RANDOM 86 mg/dL (74-106); POTASSIUM 3.9 mmol/L (3.5-5.1); SODIUM 141 mmol/L (136-145)
[2018-07-26] MEDS: FERROUS SO4 325 MG TABLET (FP) PO SCH ×2 (09:24→22:33)
[2018-07-26] MEDS: ACETAMINOPHEN 325 MG TABLET (FP) PO PRN (09:24)
[2018-07-26] MEDS: ENOXAPARIN NA (PORCINE) 80 MG/0.8 ML DISP.SYRIN SQ SCH ×2 (09:25→22:33)
[2018-07-26] MEDS: DOCUSATE SODIUM 100 MG CAPSULE (FP) PO SCH (10:45)
--- NOTE | 2018-07-26 13:23 | PN ---
Teaching Attending Note Name of Resident: Kike Steinberg ATTENDING PHYSICIAN STATEMENT I saw and evaluated the patient. I reviewed the resident's note and discussed the case with the resident. I agree with the resident's findings and plan as documented. SUBJECTIVE: Patient is comfortable with no acute distress. OBJECTIVE: Vital Signs Temperature 98.8 F 07/26/18 08:45 Pulse Rate 80 07/26/18 08:45 Respiratory Rate 18 07/26/18 08:45 Blood Pressure 114/60 07/26/18 08:45 O2 Sat by Pulse Oximetry (%) 99 07/26/18 09:00 CBCD WBC 3.0 K/mm3 (4.0-10.0) L 07/26/18 05:30 RBC 3.49 M/mm3 (3.60-5.2) L 07/26/18 05:30 Hgb 9.6 GM/dL (10.7-15.3) L 07/26/18 05:30 Hct 30.1 % (32.4-45.2) L 07/26/18 05:30 MCV 86.2 fl (80-96) 07/26/18 05:30 MCHC 32.0 g/dl (32.0-36.0) 07/26/18 05:30 RDW 17.8 % (11.6-15.6) H 07/26/18 05:30 Plt Count 257 K/MM3 (134-434) 07/26/18 05:30 MPV 8.5 fl (7.5-11.1) 07/26/18 05:30 CMP Sodium 141 mmol/L (136-145) 07/26/18 05:30 Potassium 3.9 mmol/L (3.5-5.1) 07/26/18 05:30 Chloride 110 mmol/L (98-107) H 07/26/18 05:30 Carbon Dioxide 22 mmol/L (21-32) 07/26/18 05:30 Anion Gap 9 MMOL/L (8-16) 07/26/18 05:30 BUN 8 mg/dL (7-18) 07/26/18 05:30 Creatinine 0.6 mg/dL (0.55-1.02) 07/26/18 05:30 Creat Clearance w eGFR > 60 (>60) 07/26/18 05:30 Random Glucose 86 mg/dL (74-106) 07/26/18 05:30 Calcium 7.8 mg/dL (8.5-10.1) L 07/26/18 05:30 Total Bilirubin 0.4 mg/dL (0.2-1.0) 07/23/18 05:30 AST 40 U/L (15-37) H 07/23/18 05:30 ALT 69 U/L (12-78) 07/23/18 05:30 Alkaline Phosphatase 44 U/L (45-117) L 07/23/18 05:30 Total Protein 6.9 g/dl (6.4-8.2) 07/23/18 05:30 Albumin 3.0 g/dl (3.4-5.0) L 07/23/18 05:30 CARDIAC ENZYMES Creatine Kinase 111 IU/L (26-192) 07/16/18 10:25 Troponin I < 0.02 ng/ml (0.00-0.05) 07/25/18 19:30 Current Medications Generic Name Dose Route Start Last Admin Trade Name Danii PRN Reason Stop Dose Admin Acetaminophen 650 mg 07/19/18 17:56 07/26/18 09:24 Tylenol - PO 650 mg Q6H PRN Administration PAIN LEVEL 1-5 Chlorhexidine Gluconate 1 applic 07/19/18 22:00 07/25/18 21:24 Hibiclens For Decolonization - TP Not Given [facility] Docusate Sodium 100 mg 07/20/18 10:00 07/26/18 10:45 Colace - PO 100 mg DAILY JEOVANY Administration Enoxaparin Sodium 80 mg 07/19/18 13:00 07/26/18 09:25 Lovenox - SQ 80 mg BID JEOVANY Administration Ferrous Sulfate 325 mg 07/19/18 22:00 07/26/18 09:24 Feosol - PO 325 mg BID JEOVANY Administration Hydrocortisone 1 applic 07/22/18 09:27 Hytone 1% Cream - TP BID PRN FOR ITCHING Warfarin Sodium 7.5 mg 07/20/18 18:00 07/25/18 17:03 Coumadin - PO 7.5 mg DAILY@1800 JEOVANY Administration Warfarin Sodium 2.5 mg 07/26/18 18:00 Coumadin - PO 07/26/18 18:01 ONCE@1800 ONE Home Medications Medication Instructions Recorded NK [No Known Home Medication] 07/15/18 NK [No Known Home Medication] 07/15/18 Laboratory Tests 07/25/18 07/26/18 05:30 05:30 PT with INR 20.30 H 21.20 H INR 1.80 H 1.88 H PE: as per resident's note ASSESSMENT AND PLAN: Patient is a 38yo lady with VSD repair who presented with chest pain and was found to have bilateral PEs. # Bilateral Unprovoked PEs. stable. on lovenox with coumadin 10mg continue ;INR 1.88 , will repeat Pt/INR. in am , once INR therapeutic, will discharge the patient with follow up visit with the clinic. need an overlap for 24 hr before stopping lovenox. Hypercoagulable w/u is needed as out pt. #Iron def anemia due to fibroids, cont iron supp. 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 hydrocortisone cream pRN at DC, will follow with resident clinic, ( Dr. Steinberg) for INR check and with Heme, possible discharge in am once therapeutic. DVT px: lovenox
--- NOTE | 2018-07-26 13:31 | PN ---
Physical Exam: SUBJECTIVE: Patient seen and examined at bedside. Overnight admittedchest pain described as heavy pressure over her chest. Also admits lest sided thoracic back pain at the paraspinal musculature. Pain was reproducible upon palpation over upper left chest, and back. Patient received 10.0mg dose Warfarin yesterday evening. Denies any fevers, chills, shortness of breath, abdominal pain, nausea, vomiting, diarrhea, bruising, or bleeding. OBJECTIVE: Vital Signs Period Temp Pulse Resp BP Sys/Castrejon Pulse Ox Last 24 Hr 97.8 F-99.3 F 70-88 18-20 97-124/57-69 97-99 GENERAL: Patient is awake, alert, and oriented to person, place, and time. She is resting comfortably in bed HEAD: Normocephalic. Atraumatic. EYES: Pupils equal, round and reactive to light and accommodation. Extraocular movements intact. Sclerae anicteric. EARS, NOSE, THROAT: Oropharynx clear without exudates. Moist mucous membranes. NECK: Negative neck pain to palpation or stiffness. Supple, without lymphadenopathy. No thyromegaly or thyroid nodules appreciated. LUNGS: Breath sounds equal, clear to auscultation bilaterally. Good inspiratory effort. No wheezes, and no crackles. No accessory muscle use. HEART: Regular rate and rhythm, +S1 and S2 auscultated. No murmurs or gallops appreciated. ABDOMEN: Soft, nontender to palpation X4 quadrants. Normoactive bowel sounds auscultated X 4 quadrants. No hepatosplenomegaly appreciated. No guarding, no rebound. MUSCULOSKELETAL: Full range of motion in B/L upper and lowed extremities. Strength 5/5 B/L upper extremities in flexion, extension, abduction, adduction. Strength 5/5 lower extremities in hip flexion and extension, knee flexion and extension. 5/5 B/L plantarflexion and dorsiflexion. UPPER EXTREMITIES: 2+ radial pulses. No rashes, or lesions noted. LOWER EXTREMITIES: 2+ dorsalis pedis pulses. No rashes or lesions noted. No calf tenderness B/L. No peripheral edema B/L. No bruising noted B/L. NEUROLOGICAL: Cranial nerves II-XII intact. No gross focal deficits appreciated. PSYCHIATRIC: Cooperative patient. Appropriate mood and affect upon my encounter today. Laboratory Results - last 24 hr 07/25/18 07/26/18 07/26/18 19:30 05:30 05:30 WBC 3.0 L RBC 3.49 L Hgb 9.6 L Hct 30.1 L MCV 86.2 MCH 27.6 MCHC 32.0 RDW 17.8 H Plt Count 257 MPV 8.5 PT with INR 21.20 H INR 1.88 H Sodium Potassium Chloride Carbon Dioxide Anion Gap BUN Creatinine Creat Clearance w eGFR Random Glucose Calcium Troponin I < 0.02 07/26/18 05:30 WBC RBC Hgb Hct MCV MCH MCHC RDW Plt Count MPV PT with INR INR Sodium 141 Potassium 3.9 Chloride 110 H Carbon Dioxide 22 Anion Gap 9 BUN 8 Creatinine 0.6 Creat Clearance w eGFR > 60 Random Glucose 86 Calcium 7.8 L Troponin I Active Medications Generic Name Dose Route Start Last Admin Trade Name Freq PRN Reason Stop Dose Admin Acetaminophen 650 mg 07/19/18 17:56 07/26/18 09:24 Tylenol - PO 650 mg Q6H PRN Administration PAIN LEVEL 1-5 Chlorhexidine Gluconate 1 applic 07/19/18 22:00 07/25/18 21:24 Hibiclens For Decolonization - TP Not Given HS [facility] Docusate Sodium 100 mg 07/20/18 10:00 07/26/18 10:45 Colace - PO 100 mg DAILY JEOVANY Administration Enoxaparin Sodium 80 mg 07/19/18 13:00 07/26/18 09:25 Lovenox - SQ 80 mg BID JEOVANY Administration Ferrous Sulfate 325 mg 07/19/18 22:00 07/26/18 09:24 Feosol - PO 325 mg BID JEOVANY Administration Hydrocortisone 1 applic 07/22/18 09:27 Hytone 1% Cream - TP BID PRN FOR ITCHING Warfarin Sodium 7.5 mg 07/20/18 18:00 07/25/18 17:03 Coumadin - PO 7.5 mg DAILY@1800 JEOVANY Administration Warfarin Sodium 2.5 mg 07/26/18 18:00 Coumadin - PO 07/26/18 18:01 ONCE@1800 ONE Imaging: -EKG showed Sinus tachycardia, RSR prime in lead V1, S1Q3T3 noted. -CT Head showed no evidence of intracrainal hemorrhage. Positive for occipital scalp hematoma midline. -CT Chest showed multiple Pulmonary Emboli in right upper lobe, right posterior basilar, and right middle lobe segmental arteries, right pulmonary artery, left upper lobe anterior segmental artery. -Lower extremity duplex ultrasound showed no evidence of DVT in B/L legs ASSESSMENT/PLAN: 38 year old female with history of VSD repaired in (1996) presents after syncopal episode, and admitted for Pulmonary Embolism. Chest pain, back pain -Troponin negative at less than 0.02 -EKG done at time of complaint showed normal sinus rhythm at 83 beats per minute. Her vitals at that time were BP 107/58, HR 85, RR 18, O2 97% saturation. -Pain reproducible upon palpation at back, and upper left chest. Improved with Tylenol. Likely musculoskeletal in nature. Syncopal episode secondary to Acute sub-massive unprovoked PE -Patient is saturating 99% room air. Goal is to maintain oxygen saturation above 90% -Lovenox 80mg SQ BID -Warfarin 10mg PO today. Received 10mg yesterday evening. Today INR is 1.88 -Once INR is within therapeutic range (2-3) patient will need 24 hour overlap with Lovenox before discharge. -Pain control with Tylenol 650mg PO Q6 PRN for pain 1-5 -Patient will follow-up outpatient for thrombophilia workup. Leiomyoma -Transvaginal US showed Leiomyoma 11.1 x 9.2 x 8.2cm. 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 R/O Acute Coronary Syndrome -EKG showed Sinus tachycardia, RSR prime in lead V1, S1Q3T3 noted. -Troponins tended down 0.41-> 1.50 -> 0.30 -Cardiology consult (Dr. Chu) appreciated: No further cardiac management is warranted. Anemia -Hb 9.6 Hct 30.1 -Ferrous sulfate 325 mg PO BID -Colace 100mg daily -Patient will follow up outpatient for further workup. FEN -No IV fluids, patient tolerating PO intake -Electrolytes within normal limits. Will follow CMP -Regular diet Prophylaxis -Lovenox 80mg SQ BID. Warfarin 10mg PO today. Disposition: Continue monitoring telemetry floor. Visit type - Emergency Visit Emergency Visit: Yes ED Registration Date: 07/15/18 Care time: The patient presented to the Emergency Department on the above date and was hospitalized for further evaluation of their emergent condition. - New Patient This patient is new to me today: No - Critical Care Critical Care patient: No - Discharge Referral Referred to [facility] No
--- NOTE | 2018-07-26 14:38 | PN ---
Progress Note (short form) - Note Progress Note: PULMONARY Episode of chest pain overnight improved with tylenol. Currently feels fine. Vital Signs Period Temp Pulse Resp BP Sys/Castrejon Pulse Ox Last 24 Hr 97.8 F-99.1 F 70-86 18-20 97-114/57-65 97-99 Gen: NAD at rest Heart: RRR Lung: decreased breath sounds at the bases Abd: soft, nontender Ext: no edema CBC, BMP 07/26/18 05:30 07/26/18 05:30 INR, PTT INR 1.88 (0.83-1.09) H 07/26/18 05:30 Active Medications Acetaminophen (Tylenol -) 650 mg PO Q6H PRN PRN Reason: PAIN LEVEL 1-5 Last Admin: 07/26/18 09:24 Dose: 650 mg Chlorhexidine Gluconate (Hibiclens For Decolonization -) 1 applic TP HS [facility] Last Admin: 07/25/18 21:24 Dose: Not Given Docusate Sodium (Colace -) 100 mg PO DAILY [facility] Last Admin: 07/26/18 10:45 Dose: 100 mg Enoxaparin Sodium (Lovenox -) 80 mg SQ BID [facility] Last Admin: 07/26/18 09:25 Dose: 80 mg Ferrous Sulfate (Feosol -) 325 mg PO BID [facility] Last Admin: 07/26/18 09:24 Dose: 325 mg Hydrocortisone (Hytone 1% Cream -) 1 applic TP BID PRN PRN Reason: FOR ITCHING Warfarin Sodium (Coumadin -) 7.5 mg PO DAILY@1800 [facility] Last Admin: 07/25/18 17:03 Dose: 7.5 mg Warfarin Sodium (Coumadin -) 2.5 mg PO ONCE@1800 ONE Stop: 07/26/18 18:01 A/P Acute Submassive Pulmonary Emboli appears to be unprovoked RV Strain Syncope Large Leiomyoma - continue anticoagulation, LMWH transition to coumadin - target INR 2-3 - O2 to keep SpO2 >90%
--- NOTE | 2018-07-26 15:39 | EKG ---
Test Reason : Blood Pressure : / mmHG Vent. Rate : 083 BPM Atrial Rate : 083 BPM P-R Int : 126 ms QRS Dur : 080 ms QT Int : 384 ms P-R-T Axes : 041 036 024 degrees QTc Int : 451 ms NORMAL SINUS RHYTHM NORMAL ECG WHEN COMPARED WITH ECG OF 21-JUL-2018 09:59, NO SIGNIFICANT CHANGE WAS FOUND Confirmed by JAYNE RAMIREZ MD ([id number]) on 07/26/2018 3:39:36 PM Referred By: Confirmed By:JAYNE RAMIREZ MD
[2018-07-26] MEDS: WARFARIN NA 7.5 MG TABLET (FP) PO SCH (17:41)
[2018-07-26] MEDS ORDERED: WARFARIN NA 2.5 MG TABLET (FP) PO ONE (18:00)
[2018-07-26] MEDS: CHLORHEXIDINE GLUCONATE 4% CLEANSER FOR DECOLONIZATION TP SCH (22:31)
[2018-07-27 07:27] LABS: HEMATOCRIT 31.4 % (32.4-45.2); HEMOGLOBIN 10.4 GM/dL (10.7-15.3); MCH 28.2 pg (25.7-33.7); MEAN CELL VOLUME 85.5 fl (80-96); MEAN PLT VOLUME 8.1 fl (7.5-11.1); PLATELET COUNT 276 K/MM3 (134-434); RBC 3.68 M/mm3 (3.60-5.2); RDW 18.5 % (11.6-15.6); WHITE BLOOD COUNT 3.6 K/mm3 (4.0-10.0)
[2018-07-27 07:52] LABS: INR 1.97 (0.83-1.09); PROTHROMBIN TIME (PATIENT) 22.3 SEC (9.7-13.0)
[2018-07-27 08:06] LABS: ANION GAP 7 MMOL/L (8-16); BLOOD UREA NITROGEN 14 mg/dL (7-18); CALCIUM 8.2 mg/dL (8.5-10.1); CHLORIDE 106 mmol/L (98-107); CO2 26 mmol/L (21-32); POTASSIUM 4.2 mmol/L (3.5-5.1); SODIUM 139 mmol/L (136-145)
[2018-07-27 08:09] LABS: CREATININE 0.7 mg/dL (0.55-1.3); GLUCOSE,RANDOM 79 mg/dL (74-106)
--- NOTE | 2018-07-27 09:18 | PN ---
Physical Exam: SUBJECTIVE: Patient seen and examined at bedside this morning. Admits resolution of the chest and back pain with Tylenol. No acute complaints today. Denies any fevers, chills, shortness of breath, chest pain, palpitations, abdominal pain, nausea, vomiting, diarrhea, bruising, or bleeding. OBJECTIVE: Vital Signs Period Temp Pulse Resp BP Sys/Castrejon Pulse Ox Last 24 Hr 97.9 F-98.5 F 74-89 20-20 101-115/58-73 99 GENERAL: Patient is awake, alert, and oriented to person, place, and time. She is resting comfortably in bed HEAD: Normocephalic. Atraumatic. EYES: Pupils equal, round and reactive to light and accommodation. Extraocular movements intact. Sclerae anicteric. EARS, NOSE, THROAT: Oropharynx clear without exudates. Moist mucous membranes. NECK: Negative neck pain to palpation or stiffness. Supple, without lymphadenopathy. No thyromegaly or thyroid nodules appreciated. LUNGS: Breath sounds equal, clear to auscultation bilaterally. Good inspiratory effort. No wheezes, and no crackles. No accessory muscle use. HEART: Regular rate and rhythm, +S1 and S2 auscultated. No murmurs or gallops appreciated. ABDOMEN: Soft, nontender to palpation X4 quadrants. Normoactive bowel sounds auscultated X 4 quadrants. No hepatosplenomegaly appreciated. No guarding, no rebound. MUSCULOSKELETAL: Full range of motion in B/L upper and lowed extremities. Strength 5/5 B/L upper extremities in flexion, extension, abduction, adduction. Strength 5/5 lower extremities in hip flexion and extension, knee flexion and extension. 5/5 B/L plantarflexion and dorsiflexion. UPPER EXTREMITIES: 2+ radial pulses. No rashes, or lesions noted. LOWER EXTREMITIES: 2+ dorsalis pedis pulses. No rashes or lesions noted. No calf tenderness B/L. No peripheral edema B/L. No bruising noted B/L. NEUROLOGICAL: Cranial nerves II-XII intact. No gross focal deficits appreciated. PSYCHIATRIC: Cooperative patient. Appropriate mood and affect upon my encounter today. Laboratory Results - last 24 hr 07/27/18 07/27/18 07/27/18 07:06 07:06 07:06 WBC 3.6 L RBC 3.68 Hgb 10.4 L Hct 31.4 L MCV 85.5 MCH 28.2 MCHC 33.0 RDW 18.5 H Plt Count 276 MPV 8.1 PT with INR 22.30 H INR 1.97 H Sodium 139 Potassium 4.2 Chloride 106 Carbon Dioxide 26 Anion Gap 7 L BUN 14 Creatinine 0.7 Creat Clearance w eGFR > 60 Random Glucose 79 Calcium 8.2 L Active Medications Generic Name Dose Route Start Last Admin Trade Name Freq PRN Reason Stop Dose Admin Acetaminophen 650 mg 07/19/18 17:56 07/26/18 09:24 Tylenol - PO 650 mg Q6H PRN Administration PAIN LEVEL 1-5 Chlorhexidine Gluconate 1 applic 07/19/18 22:00 07/26/18 22:31 Hibiclens For Decolonization - TP Not Given [facility] Docusate Sodium 100 mg 07/20/18 10:00 07/26/18 10:45 Colace - PO 100 mg DAILY JEOVANY Administration Enoxaparin Sodium 80 mg 07/19/18 13:00 07/26/18 22:33 Lovenox - SQ 80 mg BID JEOVANY Administration Ferrous Sulfate 325 mg 07/19/18 22:00 07/26/18 22:33 Feosol - PO 325 mg BID JEOVANY Administration Hydrocortisone 1 applic 07/22/18 09:27 Hytone 1% Cream - TP BID PRN FOR ITCHING Warfarin Sodium 10 mg 07/27/18 18:00 Coumadin - PO DAILY@1800 [facility] Imaging: -EKG showed Sinus tachycardia, RSR prime in lead V1, S1Q3T3 noted. -CT Head showed no evidence of intracrainal hemorrhage. Positive for occipital scalp hematoma midline. -CT Chest showed multiple Pulmonary Emboli in right upper lobe, right posterior basilar, and right middle lobe segmental arteries, right pulmonary artery, left upper lobe anterior segmental artery. -Lower extremity duplex ultrasound showed no evidence of DVT in B/L legs ASSESSMENT/PLAN: 38 year old female with history of VSD repaired in (1996) presents after syncopal episode, and admitted for Pulmonary Embolism. Syncopal episode secondary to Acute sub-massive unprovoked PE -Patient is saturating 99% room air. Goal is to maintain oxygen saturation above 90% -Lovenox 80mg SQ BID -Warfarin 10mg PO today. Received 10mg yesterday evening. Today INR is 1.97 -Patient will need 24 hour overlap with Lovenox before discharge. -Pain control with Tylenol 650mg PO Q6 PRN for pain 1-5 -Patient will follow-up outpatient for thrombophilia workup. -Patient will follow up as outpatient in [facility] continuity clinic for INR checks. Chest pain, back pain -Improved. Denies pain today. -Troponin negative at less than 0.02 -EKG done at time of complaint showed normal sinus rhythm at 83 beats per minute. Her vitals at that time were BP 107/58, HR 85, RR 18, O2 97% saturation. -Pain was reproducible upon palpation at back, and upper left chest. Improved with Tylenol. Likely musculoskeletal in nature. -Today no pain with palpation. Leiomyoma -Transvaginal US showed Leiomyoma 11.1 x 9.2 x 8.2cm. -Patient will follow-up with [facility] outpatient. R/O Acute Coronary Syndrome -EKG showed Sinus tachycardia, RSR prime in lead V1, S1Q3T3 noted. -Troponins tended down 0.41-> 1.50 -> 0.30 -Cardiology consult (Dr. Chu) appreciated: No further cardiac management is warranted. Anemia -Hb 10.4 Hct 31.4 -Ferrous sulfate 325 mg PO BID -Colace 100mg daily -Patient will follow up outpatient for further workup. FEN -No IV fluids, patient tolerating PO intake -Electrolytes within normal limits. Will follow CMP -Regular diet Prophylaxis -Lovenox 80mg SQ BID. Warfarin 10mg PO today. Disposition: Continue monitoring telemetry floor. Possible discharge home tomorrow. Visit type - Emergency Visit Emergency Visit: Yes ED Registration Date: 07/15/18 Care time: The patient presented to the Emergency Department on the above date and was hospitalized for further evaluation of their emergent condition. - New Patient This patient is new to me today: No - Critical Care Critical Care patient: No - Discharge Referral Referred to [facility] Med P.C.: No
[2018-07-27] MEDS: ENOXAPARIN NA (PORCINE) 80 MG/0.8 ML DISP.SYRIN SQ SCH ×2 (09:39→21:30)
[2018-07-27] MEDS: FERROUS SO4 325 MG TABLET (FP) PO SCH ×2 (09:39→21:30)
[2018-07-27] MEDS: DOCUSATE SODIUM 100 MG CAPSULE (FP) PO SCH (09:39)
--- NOTE | 2018-07-27 11:47 | PN ---
Progress Note, Physician History of Present Illness: pulmonary alert,no distress,-cp,-sob - Current Medication List Current Medications: Active Medications Acetaminophen (Tylenol -) 650 mg PO Q6H PRN PRN Reason: PAIN LEVEL 1-5 Last Admin: 07/26/18 09:24 Dose: 650 mg Chlorhexidine Gluconate (Hibiclens For Decolonization -) 1 applic TP HS [facility] Last Admin: 07/26/18 22:31 Dose: Not Given Docusate Sodium (Colace -) 100 mg PO DAILY [facility] Last Admin: 07/27/18 09:39 Dose: 100 mg Enoxaparin Sodium (Lovenox -) 80 mg SQ BID [facility] Last Admin: 07/27/18 09:39 Dose: 80 mg Ferrous Sulfate (Feosol -) 325 mg PO BID [facility] Last Admin: 07/27/18 09:39 Dose: 325 mg Hydrocortisone (Hytone 1% Cream -) 1 applic TP BID PRN PRN Reason: FOR ITCHING Warfarin Sodium (Coumadin -) 10 mg PO DAILY@1800 [facility] - Objective Vital Signs: Vital Signs Temperature 99.6 F 07/27/18 09:38 Pulse Rate 89 07/27/18 09:38 Respiratory Rate 20 07/27/18 09:38 Blood Pressure 123/68 07/27/18 09:38 O2 Sat by Pulse Oximetry (%) 99 07/27/18 09:00 Constitutional: Yes: Well Nourished, Calm Eyes: Yes: WNL HENT: Yes: WNL Cardiovascular: Yes: Regular Rate and Rhythm, S1, S2 Respiratory: Yes: CTA Bilaterally Gastrointestinal: Yes: Normal Bowel Sounds, Soft Extremities: Yes: WNL Edema: No Labs: CBC, BMP 07/27/18 07:06 07/27/18 07:06 INR, PTT INR 1.97 (0.83-1.09) H 07/27/18 07:06 Problem List - Problems (1) Pulmonary embolism Code(s): I26.99 - OTHER PULMONARY EMBOLISM WITHOUT ACUTE COR PULMONALE Qualifiers: Pulmonary embolism type: other Chronicity: acute Acute cor pulmonale presence: with acute cor pulmonale Qualified Code(s): I26.09 - Other pulmonary embolism with acute cor pulmonale (2) Syncope Code(s): R55 - SYNCOPE AND COLLAPSE Assessment/Plan ASSESSMENT AND PLAN: Acute Submassive Pulmonary Emboli ? provoked RV Strain Syncope Large Leiomyoma - continue anticoagulation, LMWH for transition to coumadin - target INR 2-3 - O2 to keep SpO2 >90% DR ABDI
[2018-07-27] MEDS: ACETAMINOPHEN 325 MG TABLET (FP) PO PRN (13:32)
--- NOTE | 2018-07-27 14:33 | DS ---
Physical Exam: SUBJECTIVE: Patient seen and examined at bedside this morning. Admits resolution of the chest and back pain with Tylenol. No acute complaints today. Denies any fevers, chills, shortness of breath, chest pain, palpitations, abdominal pain, nausea, vomiting, diarrhea, bruising, or bleeding. OBJECTIVE: Vital Signs Period Temp Pulse Resp BP Sys/Castrejon Pulse Ox Last 24 Hr 97.9 F-99.6 F 77-89 20-21 101-123/58-73 99-99 PHYSICAL EXAM GENERAL: Patient is awake, alert, and oriented to person, place, and time. She is resting comfortably in bed HEAD: Normocephalic. Atraumatic. EYES: Pupils equal, round and reactive to light and accommodation. Extraocular movements intact. Sclerae anicteric. EARS, NOSE, THROAT: Oropharynx clear without exudates. Moist mucous membranes. NECK: Negative neck pain to palpation or stiffness. Supple, without lymphadenopathy. No thyromegaly or thyroid nodules appreciated. LUNGS: Breath sounds equal, clear to auscultation bilaterally. Good inspiratory effort. No wheezes, and no crackles. No accessory muscle use. HEART: Regular rate and rhythm, +S1 and S2 auscultated. No murmurs or gallops appreciated. ABDOMEN: Soft, nontender to palpation X4 quadrants. Normoactive bowel sounds auscultated X 4 quadrants. No hepatosplenomegaly appreciated. No guarding, no rebound. MUSCULOSKELETAL: Full range of motion in B/L upper and lowed extremities. Strength 5/5 B/L upper extremities in flexion, extension, abduction, adduction. Strength 5/5 lower extremities in hip flexion and extension, knee flexion and extension. 5/5 B/L plantarflexion and dorsiflexion. UPPER EXTREMITIES: 2+ radial pulses. No rashes, or lesions noted. LOWER EXTREMITIES: 2+ dorsalis pedis pulses. No rashes or lesions noted. No calf tenderness B/L. No peripheral edema B/L. No bruising noted B/L. NEUROLOGICAL: Cranial nerves II-XII intact. No gross focal deficits appreciated. PSYCHIATRIC: Cooperative patient. Appropriate mood and affect upon my encounter today. LABS Laboratory Results - last 24 hr 07/27/18 07/27/18 07/27/18 07:06 07:06 07:06 WBC 3.6 L RBC 3.68 Hgb 10.4 L Hct 31.4 L MCV 85.5 MCH 28.2 MCHC 33.0 RDW 18.5 H Plt Count 276 MPV 8.1 PT with INR 22.30 H INR 1.97 H Sodium 139 Potassium 4.2 Chloride 106 Carbon Dioxide 26 Anion Gap 7 L BUN 14 Creatinine 0.7 Creat Clearance w eGFR > 60 Random Glucose 79 Calcium 8.2 L HOSPITAL COURSE: Date of Admission:07/15/18 Date of Discharge: 07/27/18 Patient is a 38 year old female with history of VSD repaired in (1996) presents after syncopal episode, and admitted for Acute, sub-massive unprovoked pulmonary embolism. EKG showed Sinus tachycardia, RSR prime in lead V1, S1Q3T3 noted. CT Head showed no evidence of intracrainal hemorrhage. Positive for occipital scalp hematoma midline. CT Chest showed multiple Pulmonary Emboli in right upper lobe, right posterior basilar, and right middle lobe segmental arteries, right pulmonary artery, left upper lobe anterior segmental artery. Lower extremity duplex ultrasound showed no evidence of DVT in B/L legs. Cardiology consult discussed troponins elevated due to right ventricle strain from her pulmonary embolisms. Troponins trended down. She was started on Heparin drip for pulmonary embolism, and was bridged to Warfarin. Heparin was switched to Lovenox SQ. INR was checked daily until reached therapeutic level. 24 hours overlap with Lovenox. Transvaginal US showed Leiomyoma 11.1 x 9.2 x 8.2cm. She was instructed to follow up as outpatient. Hematology oncology consult discussed microcytic anemia resulted in her labs, and she was instructed to follow up with synthetic cloth binding cutter outpatient. She was discharged on Warfarin and instructed to follow up with [facility] outpatient clinic the next week day to follow up her INR. Discharge Summary Reason For Visit: PULMONARY EMBOLISM Current Active Problems Pulmonary embolism (Acute) Syncope (Acute) Condition: Improved - Instructions Diet, Activity, Other Instructions: You were admitted due to your episode of loss of consciousness. You were found to have blood clots in your lungs (Pulmonary Embolism) We started you on medication to prevent the blood clots from continuing to grow , and prevent new ones forming. You have been started on coumadin. You need to follow closely with your primary care provider for repeated checks of the INR,to determine the effect of the coumadin, and adjust the dose as needed. Your first appointment will be on Monday to check the INR at [facility]. It important that you continue follow up with your primary care provider Dr. 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 Freed You were found to have a fibroid on your ultrasound, and it important that you follow up with your gun number Dr. Masterson within one week of discharge. It is important that you follow up with the synthetic cloth binding cutter Dr. Tania Chaparro Referrals: Javy Guadarrama MD [Staff Physician] - 07/30/18 (First INR chec on Monday07/30/2018. Will follow up with Dr. Steinberg for continuity. ) Pam Masterson MD [Staff Physician] - 1 Week Disposition: HOME - Home Medications Comprehensive Discharge Medication List: Ambulatory Orders NK [No Known Home Medication] 07/15/18 NK [No Known Home Medication] 07/15/18 - Discharge Referral Referred to [facility] Med P.C.: No
[2018-07-27] MEDS ORDERED: WARFARIN NA 10 MG TABLET (FP) PO SCH (18:00)
--- NOTE | 2018-07-27 18:15 | PN ---
Teaching Attending Note Name of Resident: Kike Steinberg ATTENDING PHYSICIAN STATEMENT I saw and evaluated the patient. I reviewed the resident's note and discussed the case with the resident. I agree with the resident's findings and plan as documented. SUBJECTIVE: Comfrotable with no acute distress. OBJECTIVE: Vital Signs Temperature 98.3 F 07/27/18 13:48 Pulse Rate 86 07/27/18 13:48 Respiratory Rate 21 07/27/18 13:48 Blood Pressure 122/64 07/27/18 13:48 O2 Sat by Pulse Oximetry (%) 99 07/27/18 09:00 CBCD WBC 3.6 K/mm3 (4.0-10.0) L 07/27/18 07:06 RBC 3.68 M/mm3 (3.60-5.2) 07/27/18 07:06 Hgb 10.4 GM/dL (10.7-15.3) L 07/27/18 07:06 Hct 31.4 % (32.4-45.2) L 07/27/18 07:06 MCV 85.5 fl (80-96) 07/27/18 07:06 MCHC 33.0 g/dl (32.0-36.0) 07/27/18 07:06 RDW 18.5 % (11.6-15.6) H 07/27/18 07:06 Plt Count 276 K/MM3 (134-434) 07/27/18 07:06 MPV 8.1 fl (7.5-11.1) 07/27/18 07:06 CMP Sodium 139 mmol/L (136-145) 07/27/18 07:06 Potassium 4.2 mmol/L (3.5-5.1) 07/27/18 07:06 Chloride 106 mmol/L (98-107) 07/27/18 07:06 Carbon Dioxide 26 mmol/L (21-32) 07/27/18 07:06 Anion Gap 7 MMOL/L (8-16) L 07/27/18 07:06 BUN 14 mg/dL (7-18) 07/27/18 07:06 Creatinine 0.7 mg/dL (0.55-1.3) 07/27/18 07:06 Creat Clearance w eGFR > 60 (>60) 07/27/18 07:06 Random Glucose 79 mg/dL (74-106) 07/27/18 07:06 Calcium 8.2 mg/dL (8.5-10.1) L 07/27/18 07:06 Total Bilirubin 0.4 mg/dL (0.2-1.0) 07/23/18 05:30 AST 40 U/L (15-37) H 07/23/18 05:30 ALT 69 U/L (12-78) 07/23/18 05:30 Alkaline Phosphatase 44 U/L (45-117) L 07/23/18 05:30 Total Protein 6.9 g/dl (6.4-8.2) 07/23/18 05:30 Albumin 3.0 g/dl (3.4-5.0) L 07/23/18 05:30 CARDIAC ENZYMES Creatine Kinase 111 IU/L (26-192) 07/16/18 10:25 Troponin I < 0.02 ng/ml (0.00-0.05) 07/25/18 19:30 Current Medications Generic Name Dose Route Start Last Admin Trade Name Danii PRN Reason Stop Dose Admin Acetaminophen 650 mg 07/19/18 17:56 07/27/18 13:32 Tylenol - PO 650 mg Q6H PRN Administration PAIN LEVEL 1-5 Chlorhexidine Gluconate 1 applic 07/19/18 22:00 07/26/18 22:31 Hibiclens For Decolonization - TP Not Given [facility] Docusate Sodium 100 mg 07/20/18 10:00 07/27/18 09:39 Colace - PO 100 mg DAILY JEOVANY Administration Enoxaparin Sodium 80 mg 07/19/18 13:00 07/27/18 09:39 Lovenox - SQ 80 mg BID [facility] Administration Ferrous Sulfate 325 mg 07/19/18 22:00 07/27/18 09:39 Feosol - PO 325 mg BID [facility] Administration Hydrocortisone 1 applic 07/22/18 09:27 Hytone 1% Cream - TP BID PRN FOR ITCHING Warfarin Sodium 10 mg 07/27/18 18:00 Coumadin - PO DAILY@1800 [facility] Home Medications Medication Instructions Recorded NK [No Known Home Medication] 07/15/18 NK [No Known Home Medication] 07/15/18 PE: as per resident's note ASSESSMENT AND PLAN: Patient is a 38yo lady with VSD repair who presented with chest pain and was found to have bilateral PEs. # Bilateral Unprovoked PEs. stable. on lovenox with coumadin 10mg continue ;INR 1.88-->1.97 today , will repeat Pt/INR. in am , once INR therapeutic, will discharge the patient with follow up visit with the clinic. need an overlap for 24 hr before stopping lovenox. Hypercoagulable w/u is needed as out pt. #Iron def anemia due to fibroids, cont iron supp. 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 hydrocortisone cream pRN at [place], will follow with resident clinic, ( Dr. Steinberg) for INR check and with Heme, possible discharge in am once therapeutic. DVT px: lovenox
[2018-07-27] MEDS: CHLORHEXIDINE GLUCONATE 4% CLEANSER FOR DECOLONIZATION TP SCH (21:31)
[2018-07-28 07:43] LABS: HEMATOCRIT 32.5 % (32.4-45.2); HEMOGLOBIN 10.4 GM/dL (10.7-15.3); MCH 27.7 pg (25.7-33.7); MCHC 32.1 g/dl (32.0-36.0); MEAN CELL VOLUME 86.3 fl (80-96); MEAN PLT VOLUME 8.2 fl (7.5-11.1); PLATELET COUNT 290 K/MM3 (134-434); RBC 3.77 M/mm3 (3.60-5.2); RDW 18.8 % (11.6-15.6); WHITE BLOOD COUNT 3.1 K/mm3 (4.0-10.0)
[2018-07-28 08:02] LABS: INR 2.03 (0.83-1.09); PROTHROMBIN TIME (PATIENT) 22.9 SEC (9.7-13.0)
--- NOTE | 2018-07-28 08:22 | PN ---
Progress Note (short form) - Note Progress Note: Vital Signs Temperature 98.7 F 07/28/18 05:00 Pulse Rate 80 07/28/18 05:00 Respiratory Rate 20 07/28/18 05:00 Blood Pressure 98/68 07/28/18 05:00 O2 Sat by Pulse Oximetry (%) 98 07/27/18 20:32 GENERAL: Patient is awake, alert, and oriented to person, place, and time. She is resting comfortably in bed HEENT: Normocephalic. Atraumatic. round and reactive to light and accommodation. EOMI, MMM . NECK: Negative neck pain to palpation or stiffness. Supple, without lymphadenopathy. No thyromegaly or thyroid nodules appreciated. LUNGS: Breath sounds equal, clear to auscultation bilaterally. Good inspiratory effort. No wheezes, and no crackles. No accessory muscle use. HEART: Regular rate and rhythm, +S1 and S2 auscultated. No murmurs or gallops appreciated. ABDOMEN: Soft, nontender to palpation X4 quadrants. Normoactive bowel sounds auscultated X 4 quadrants. No hepatosplenomegaly appreciated. MUSCULOSKELETAL: Full ROM EXTREMITIES: 2+ radial pulses. No rashes, or lesions noted. NEUROLOGICAL: Cranial nerves II-XII intact. No gross focal deficits appreciated. PSYCHIATRIC: Cooperative patient. Appropriate mood and affect upon my encounter today. CBCD WBC 3.1 K/mm3 (4.0-10.0) L 07/28/18 07:10 RBC 3.77 M/mm3 (3.60-5.2) 07/28/18 07:10 Hgb 10.4 GM/dL (10.7-15.3) L 07/28/18 07:10 Hct 32.5 % (32.4-45.2) 07/28/18 07:10 MCV 86.3 fl (80-96) 07/28/18 07:10 MCHC 32.1 g/dl (32.0-36.0) 07/28/18 07:10 RDW 18.8 % (11.6-15.6) H 07/28/18 07:10 Plt Count 290 K/MM3 (134-434) 07/28/18 07:10 MPV 8.2 fl (7.5-11.1) 07/28/18 07:10 CMP Sodium 139 mmol/L (136-145) 07/27/18 07:06 Potassium 4.2 mmol/L (3.5-5.1) 07/27/18 07:06 Chloride 106 mmol/L (98-107) 07/27/18 07:06 Carbon Dioxide 26 mmol/L (21-32) 07/27/18 07:06 Anion Gap 7 MMOL/L (8-16) L 07/27/18 07:06 BUN 14 mg/dL (7-18) 07/27/18 07:06 Creatinine 0.7 mg/dL (0.55-1.3) 07/27/18 07:06 Creat Clearance w eGFR > 60 (>60) 07/27/18 07:06 Random Glucose 79 mg/dL (74-106) 07/27/18 07:06 Calcium 8.2 mg/dL (8.5-10.1) L 07/27/18 07:06 Total Bilirubin 0.4 mg/dL (0.2-1.0) 07/23/18 05:30 AST 40 U/L (15-37) H 07/23/18 05:30 ALT 69 U/L (12-78) 07/23/18 05:30 Alkaline Phosphatase 44 U/L (45-117) L 07/23/18 05:30 Total Protein 6.9 g/dl (6.4-8.2) 07/23/18 05:30 Albumin 3.0 g/dl (3.4-5.0) L 07/23/18 05:30 CARDIAC ENZYMES Creatine Kinase 111 IU/L (26-192) 07/16/18 10:25 Troponin I < 0.02 ng/ml (0.00-0.05) 07/25/18 19:30 Current Medications Generic Name Dose Route Start Last Admin Trade Name Freq PRN Reason Stop Dose Admin Acetaminophen 650 mg 07/19/18 17:56 07/27/18 13:32 Tylenol - PO 650 mg Q6H PRN Administration PAIN LEVEL 1-5 Chlorhexidine Gluconate 1 applic 07/19/18 22:00 07/27/18 21:31 Hibiclens For Decolonization - TP Not Given HS JEOVANY Docusate Sodium 100 mg 07/20/18 10:00 07/27/18 09:39 Colace - PO 100 mg DAILY JEOVANY Administration Enoxaparin Sodium 80 mg 07/19/18 13:00 07/27/18 21:30 Lovenox - SQ 80 mg BID JEOVANY Administration Ferrous Sulfate 325 mg 07/19/18 22:00 07/27/18 21:30 Feosol - PO 325 mg BID JEOVANY Administration Hydrocortisone 1 applic 07/22/18 09:27 Hytone 1% Cream - TP BID PRN FOR ITCHING Warfarin Sodium 10 mg 07/27/18 18:00 07/27/18 18:00 Coumadin - PO 10 mg DAILY@1800 JEOVANY Administration Home Medications Medication Instructions Recorded NK [No Known Home Medication] 07/15/18 NK [No Known Home Medication] 07/15/18 Laboratory Tests 07/19/18 07/20/18 07/21/18 05:30 05:30 05:30 PT with INR INR 1.12 H 1.24 H 1.50 H 07/22/18 07/22/18 07/23/18 05:30 10:13 07:55 PT with INR INR 1.39 H 1.51 H 1.63 H 07/24/18 07/25/18 07/26/18 05:30 05:30 05:30 PT with INR 20.30 H 21.20 H INR 1.87 H 1.80 H 1.88 H 07/27/18 07/28/18 07:06 07:10 PT with INR INR 1.97 H 2.03 H ASSESSMENT AND PLAN: Patient is a 38yo lady with VSD repair who presented with chest pain and was found to have bilateral PEs. # Bilateral Unprovoked PEs. stable. on lovenox with coumadin 10mg continue ;INR 1.88 , will repeat Pt/INR. in am , once INR therapeutic, will discharge the patient with follow up visit with the clinic. need an overlap for 24 hr before stopping lovenox. Hypercoagulable w/u is needed as out pt. #Iron def anemia due to fibroids, cont iron supp. 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 hydrocortisone cream pRN at [place], will follow with resident clinic, ( Dr. Steinberg) for INR check and with Heme, possible discharge in am once therapeutic. DVT px: lovenox
[2018-07-28 08:24] LABS: CHLORIDE 108 mmol/L (98-107); POTASSIUM 4.3 mmol/L (3.5-5.1); SODIUM 142 mmol/L (136-145)
[2018-07-28 08:35] LABS: ANION GAP 10 MMOL/L (8-16); BLOOD UREA NITROGEN 13 mg/dL (7-18); CALCIUM 8.1 mg/dL (8.5-10.1); CO2 24 mmol/L (21-32); CREATININE 0.6 mg/dL (0.55-1.3); GLUCOSE,RANDOM 81 mg/dL (74-106)
[2018-07-28] MEDS: ENOXAPARIN NA (PORCINE) 80 MG/0.8 ML DISP.SYRIN SQ SCH (09:40)
[2018-07-28] MEDS: FERROUS SO4 325 MG TABLET (FP) PO SCH (09:40)
[2018-07-28] MEDS: DOCUSATE SODIUM 100 MG CAPSULE (FP) PO SCH (09:40)
--- NOTE | 2018-07-28 13:15 | DS ---
Physical Exam: SUBJECTIVE: Patient seen and examined Patient is comfortable with no acute distress, no shortness of breath, no nausea or vomiting, no headache. OBJECTIVE: Vital Signs Temperature 98.7 F 07/28/18 05:00 Pulse Rate 80 07/28/18 05:00 Respiratory Rate 20 07/28/18 05:00 Blood Pressure 98/68 07/28/18 05:00 O2 Sat by Pulse Oximetry (%) 98 07/27/18 20:32 PHYSICAL EXAM GENERAL: The patient is awake, alert, and fully oriented, in no acute distress. HEAD: Normal with no signs of trauma. EYES: PERRL, extraocular movements intact, sclera anicteric, conjunctiva clear. ENT: Ears normal, oropharynx clear without exudates, moist mucous membranes. NECK: Trachea midline, full range of motion, supple. LUNGS: Breath sounds equal, clear to auscultation bilaterally, no wheezes, no crackles, no accessory muscle use. HEART: Regular rate and rhythm, S1, S2 without murmur, rub or gallop. ABDOMEN: Soft, nontender, nondistended, normoactive bowel sounds, no guarding, no rebound, no hepatosplenomegaly, no masses. EXTREMITIES: 2+ pulses, warm, well-perfused, no edema. NEUROLOGICAL: Cranial nerves II through XII grossly intact. Normal speech, gait is stable PSYCH: Normal mood, normal affect. SKIN: Warm, dry, normal turgor, no rashes or lesions noted. LABS CBCD WBC 3.1 K/mm3 (4.0-10.0) L 07/28/18 07:10 RBC 3.77 M/mm3 (3.60-5.2) 07/28/18 07:10 Hgb 10.4 GM/dL (10.7-15.3) L 07/28/18 07:10 Hct 32.5 % (32.4-45.2) 07/28/18 07:10 MCV 86.3 fl (80-96) 07/28/18 07:10 MCHC 32.1 g/dl (32.0-36.0) 07/28/18 07:10 RDW 18.8 % (11.6-15.6) H 07/28/18 07:10 Plt Count 290 K/MM3 (134-434) 07/28/18 07:10 MPV 8.2 fl (7.5-11.1) 07/28/18 07:10 CMP Sodium 142 mmol/L (136-145) 07/28/18 07:10 Potassium 4.3 mmol/L (3.5-5.1) 07/28/18 07:10 Chloride 108 mmol/L (98-107) H 07/28/18 07:10 Carbon Dioxide 24 mmol/L (21-32) 07/28/18 07:10 Anion Gap 10 MMOL/L (8-16) 07/28/18 07:10 BUN 13 mg/dL (7-18) 07/28/18 07:10 Creatinine 0.6 mg/dL (0.55-1.3) 07/28/18 07:10 Creat Clearance w eGFR > 60 (>60) 07/28/18 07:10 Random Glucose 81 mg/dL (74-106) 07/28/18 07:10 Calcium 8.1 mg/dL (8.5-10.1) L 07/28/18 07:10 Total Bilirubin 0.4 mg/dL (0.2-1.0) 07/23/18 05:30 AST 40 U/L (15-37) H 07/23/18 05:30 ALT 69 U/L (12-78) 07/23/18 05:30 Alkaline Phosphatase 44 U/L (45-117) L 07/23/18 05:30 Total Protein 6.9 g/dl (6.4-8.2) 07/23/18 05:30 Albumin 3.0 g/dl (3.4-5.0) L 07/23/18 05:30 CARDIAC ENZYMES Creatine Kinase 111 IU/L (26-192) 07/16/18 10:25 Troponin I < 0.02 ng/ml (0.00-0.05) 07/25/18 19:30 Current Medications Generic Name Dose Route Start Last Admin Trade Name Freq PRN Reason Stop Dose Admin Acetaminophen 650 mg 07/19/18 17:56 07/27/18 13:32 Tylenol - PO 650 mg Q6H PRN Administration PAIN LEVEL 1-5 Chlorhexidine Gluconate 1 applic 07/19/18 22:00 07/27/18 21:31 Hibiclens For Decolonization - TP Not Given HS JEOVANY Docusate Sodium 100 mg 07/20/18 10:00 07/28/18 09:40 Colace - PO 100 mg DAILY JEOVANY Administration Enoxaparin Sodium 80 mg 07/19/18 13:00 07/28/18 09:40 Lovenox - SQ 80 mg BID JEOVANY Administration Ferrous Sulfate 325 mg 07/19/18 22:00 07/28/18 09:40 Feosol - PO 325 mg BID JEOVANY Administration Hydrocortisone 1 applic 07/22/18 09:27 Hytone 1% Cream - TP BID PRN FOR ITCHING Warfarin Sodium 10 mg 07/27/18 18:00 07/27/18 18:00 Coumadin - PO 10 mg DAILY@1800 JEOVANY Administration Home Medications Medication Instructions Recorded NK [No Known Home Medication] 07/15/18 NK [No Known Home Medication] 07/15/18 Laboratory Tests 07/19/18 07/20/18 07/21/18 05:30 05:30 05:30 PT with INR INR 1.12 H 1.24 H 1.50 H 07/22/18 07/22/18 07/23/18 05:30 10:13 07:55 PT with INR INR 1.39 H 1.51 H 1.63 H 07/24/18 07/25/18 07/26/18 05:30 05:30 05:30 PT with INR 20.30 H 21.20 H INR 1.87 H 1.80 H 1.88 H 07/27/18 07/28/18 07:06 07:10 PT with INR INR 1.97 H 2.03 H HOSPITAL COURSE: Date of Admission:07/15/18 Date of Discharge: 07/28/18 Patient is a 38 year old female with history of VSD repaired in (1996) presents after syncopal episode, and was admitted for Acute, sub-massive unprovoked pulmonary embolism. EKG showed Sinus tachycardia, RSR prime in lead V1, S1Q3T3 noted. CT Head showed no evidence of intracrainal hemorrhage. Positive for occipital scalp hematoma midline. CT Chest showed multiple Pulmonary Emboli in right upper lobe, right posterior basilar, and right middle lobe segmental arteries, right pulmonary artery, left upper lobe anterior segmental artery. Lower extremity duplex ultrasound showed no evidence of DVT in B/L legs. Troponins trended down. She was started on Heparin drip for pulmonary embolism, and was bridged to Warfarin. Heparin was switched to Lovenox SQ. INR was checked daily until reached therapeutic level. 24 hours overlap with Lovenox. Transvaginal US showed Leiomyoma 11.1 x 9.2 x 8.2cm. She was instructed to follow up as outpatient. Hematology oncology consult discussed microcytic anemia resulted in her labs, and she was instructed to follow up with shactor outpatient. She is discharged on Warfarin and instructed to follow up with [facility] outpatient clinic by this Monday to check the INR and to follow up her INR and dose adjustments at the clinic. # Bilateral Unprovoked PEs. stable. on lovenox with coumadin 10mg continue ;INR 1.88-->1.97-->2.03 today ,INR to be repeated on Monday at the clinic with or Maryan. Hypercoagulable w/u is needed as out pt.Patient will follow with , patient also will follow with Pulmonary . #Iron def anemia due to fibroids, cont iron supp. with Colace EXEC. CREATIVE DIRECTOR f/u as out pt # contact dermatitis at site of tele leads. hydrocortisone cream pRN improved Patient will follow with the resident clinic for this Monday to check INR and adjuast the dose of coumadin accordingly ( Dr. Steinberg) INR check and with Heme , Discharge time 45minutes Minutes to complete discharge: 45 Discharge Summary Reason For Visit: PULMONARY EMBOLISM Current Active Problems Pulmonary embolism (Acute) Syncope (Acute) Condition: Stable - Instructions Diet, Activity, Other Instructions: You were admitted due to your episode of loss of consciousness. You were found to have blood clots in your lungs (Pulmonary Embolism) We started you on medication to prevent the blood clots from continuing to grow , and prevent new ones forming. You have been started on coumadin. You need to follow closely with your primary care provider or the clinic for repeated checks of the INR,to determine the effect of the coumadin, and adjust the dose of Coumadin as needed. Your first appointment will be on Monday to check the INR at [facility]. On 07/30/2018 on Monday morning. Please try to keep your diet consistent as changes to certain foods (such as leafy green vegetables) may cause change in the INR/ coumadin level. It important that you continue follow up with your primary care provider Dr. Steinberg or dr. Zamora this Monday on 07/30/2018 It important that you follow up with the hairspring assembler Dr. Freed within one of your discharge. You were found to have a fibroid on your ultrasound, and it important that you follow up with your college physics instructor Dr. Masterson within one week of discharge. It is important that you follow up with the shactor Dr. Tania Chaparro Referrals: Javy Guadarrama MD [Staff Physician] - (First INR chec on Monday07/30/2018. and Coumadin dose adjustments if needed. Will follow up with Dr. Steinberg or for continuity. ) Pam Masterson MD [Staff Physician] - 1 Week Tania Elias MD [Staff Physician] - 2 Weeks Geremias Freed MD, MD [Staff Physician] - 1 Week Disposition: HOME - Home Medications Comprehensive Discharge Medication List: Ambulatory Orders NK [No Known Home Medication] 07/15/18 NK [No Known Home Medication] 07/15/18 This patient is new to me today: No Emergency Visit: Yes ED Registration Date: 07/15/18 Care time: The patient presented to the Emergency Department on the above date and was hospitalized for further evaluation of their emergent condition. Critical Care patient: No - Discharge Referral Referred to [facility] Med P.C.: No
--- NOTE | 2018-07-28 13:32 | PN ---
Progress Note (short form) - Note Progress Note: Feels overall better. No CP or SOB. No hemoptysis. Intake & Output 07/25/18 07/26/18 07/27/18 07/28/18 23:59 23:59 23:59 23:59 Intake Total 1130 860 400 200 Balance 1130 860 400 200 Weight 173 lb 6.4 oz 174 lb 9.6 oz 174 lb 12.8 oz 174 lb Last Vital Signs Temp Pulse Resp BP Pulse Ox 98.7 F 80 20 98/68 98 07/28/18 05:00 07/28/18 05:00 07/28/18 05:00 07/28/18 05:00 07/27/18 20:32 Active Medications Acetaminophen (Tylenol -) 650 mg PO Q6H PRN PRN Reason: PAIN LEVEL 1-5 Last Admin: 07/27/18 13:32 Dose: 650 mg Chlorhexidine Gluconate (Hibiclens For Decolonization -) 1 applic TP HS [facility] Last Admin: 07/27/18 21:31 Dose: Not Given Docusate Sodium (Colace -) 100 mg PO DAILY [facility] Last Admin: 07/28/18 09:40 Dose: 100 mg Enoxaparin Sodium (Lovenox -) 80 mg SQ BID [facility] Last Admin: 07/28/18 09:40 Dose: 80 mg Ferrous Sulfate (Feosol -) 325 mg PO BID [facility] Last Admin: 07/28/18 09:40 Dose: 325 mg Hydrocortisone (Hytone 1% Cream -) 1 applic TP BID PRN PRN Reason: FOR ITCHING Warfarin Sodium (Coumadin -) 10 mg PO DAILY@1800 [facility] Last Admin: 07/27/18 18:00 Dose: 10 mg Exam: General: awake and alert in bed w/o distress HEENT: PERRL, no JVD noted Pulm: CTA CV: RRR Abd: SNTND Ext: (+) PP Neuro: AOx3 Laboratory Results - last 24 hr 07/28/18 07/28/18 07/28/18 07:10 07:10 07:10 WBC 3.1 L RBC 3.77 Hgb 10.4 L Hct 32.5 MCV 86.3 MCH 27.7 MCHC 32.1 RDW 18.8 H Plt Count 290 MPV 8.2 PT with INR 22.90 H INR 2.03 H Sodium 142 Potassium 4.3 Chloride 108 H Carbon Dioxide 24 Anion Gap 10 BUN 13 Creatinine 0.6 Creat Clearance w eGFR > 60 Random Glucose 81 Calcium 8.1 L ASSESSMENT AND PLAN: Acute Submassive Pulmonary Emboli: (?) provoked due to large Leiomyoma RV Strain Syncope Noted INR in therapeutic range No Pulmonary contraindication for D/C Dr Ahmadi
[2018-07-28 14:52] VITALS: BP 122/76; PULSE 85; TEMP 98.4
== END 2018-07-28 16:45 | disposition home or self-care (01) | DRG 134 ==
LOC: JER 11:11 → JERBED 15:12 → JICU 17:24 → J4W 07-23 15:08
PROVIDERS: ADMIT Internal Medicine; ATTEND Internal Medicine
DX: I26.99 Other pulmonary embolism without acute cor pulmonale (principal); S00.03XA Contusion of scalp, initial encounter; S06.9X9A Unspecified intracranial injury with loss of consciousness of unspecified duration, initial encounter; R00.0 Tachycardia, unspecified; R55 Syncope and collapse; E87.6 Hypokalemia; E83.42 Hypomagnesemia; D25.9 Leiomyoma of uterus, unspecified; D50.9 Iron deficiency anemia, unspecified; L25.8 Unspecified contact dermatitis due to other agents; R07.89 Other chest pain; M54.9 Dorsalgia, unspecified; Q21.0 Ventricular septal defect; I51.9 Heart disease, unspecified; R09.02 Hypoxemia; N85.2 Hypertrophy of uterus; W18.30XA Fall on same level, unspecified, initial encounter; Z79.01 Long term (current) use of anticoagulants; Y92.89 Other specified places as the place of occurrence of the external cause
CPT/HCPCS: 36415; 70450-TC; 71045-TC-FY; 71275-TC; 76856-TC; 80048; 80053; 81003; 81015; 82550; 82553; 82728; 82962; 83540; 83550; 83735; 83880; 84100; 84466; 84484; 84703; 85025; 85027; 85379; 85610; 85730; 93005; 93010; 93306-TC; 93970-TC; 93971-TC; 97116-GP; 97161-GP; 99285-25; J0131; J1644; J7030

== ENCOUNTER 2018-08-02 16:39 | Emergency (ER) | payer SELFPAY ==
[2018-08-02 16:45] VITALS: BMI 28.6
--- NOTE | 2018-08-02 16:47 | PDOC ---
Rapid Medical Evaluation Time Seen by Provider: 08/02/18 16:43 Medical Evaluation: Allergies Allergy/AdvReac Type Severity Reaction Status Date / Time No Known Allergies Allergy Verified 07/15/18 11:25 08/02/18 16:43 I have performed a brief in-person evaluation of this patient. The patient presents with a chief complaint of: chest pain and abdominal pain since today. Reports mid chest tightness and right lower quadrant pain. Reports nausea, no dizziness. Recently discharged on coumadin for PE Pertinent physical exam findings are NAD clear lungs bilaterally heart s1s2 I have ordered the following: ekg, labs The patient will proceed to Ed for further evaluation
[2018-08-02 17:26] LABS: BASO % 1.4 % (0-2.0); HEMATOCRIT 32.9 % (32.4-45.2); HEMOGLOBIN 10.9 GM/dL (10.7-15.3); LYMPH % 50.2 % (8-40); MCH 28.4 pg (25.7-33.7); MCHC 33.1 g/dl (32.0-36.0); MEAN CELL VOLUME 85.9 fl (80-96); MEAN PLT VOLUME 8.5 fl (7.5-11.1); MONO % 11.8 % (3.8-10.2); NEUT % 34.6 % (42.8-82.8); PLATELET COUNT 341 K/MM3 (134-434); RBC 3.83 M/mm3 (3.60-5.2); RDW 18.5 % (11.6-15.6); WHITE BLOOD COUNT 4.2 K/mm3 (4.0-10.0)
[2018-08-02 17:47] LABS: INR 2.42 (0.83-1.09); PROTHROMBIN TIME (PATIENT) 27.4 SEC (9.7-13.0)
[2018-08-02 17:49] LABS: ACTIVATED PTT 32.5 SECONDS (25.2-36.5)
[2018-08-02 17:57] LABS: ALBUMIN 3.4 g/dl (3.4-5.0); ALK PHOS 57 U/L (45-117); ANION GAP 8 MMOL/L (8-16); BILIRUBIN,TOTAL 0.2 mg/dL (0.2-1); BLOOD UREA NITROGEN 16 mg/dL (7-18); CALCIUM 8.2 mg/dL (8.5-10.1); CHLORIDE 107 mmol/L (98-107); CO2 24 mmol/L (21-32); CREATININE 0.9 mg/dL (0.55-1.3); GLUCOSE,RANDOM 86 mg/dL (74-106); POTASSIUM 3.7 mmol/L (3.5-5.1); SGOT/AST 16 U/L (15-37); SGPT/ALT 54 U/L (13-61); SODIUM 140 mmol/L (136-145); TOT PROT 7.2 g/dl (6.4-8.2)
--- NOTE | 2018-08-02 18:30 | PDOC ---
History of Present Illness - General Chief Complaint: Chest Pain Stated Complaint: STOMACH PAIN Time Seen by Provider: 08/02/18 16:43 History Source: Patient Exam Limitations: No Limitations - History of Present Illness Initial Comments: 08/02/18 18:18 38 yo female pmh of VSD (repaired 1996), a large leiomyoma (11cm by 9cm by 8cm) and recent admission (07/15-07/28) for acute submassive unprovoked PE (on warfarin, last known INR 2.4 this Monday) presents to the ED for sudden onset RLQ pain and SOB. Patient states these s/s occurred at 10 am while sitting on her couch. Since discharge home pt has had no complaints and has been asymptomatic until today. Admits to CP with deep breaths and when sitting forward, denies palpitations, calf tenderness, F/C/N/V. Patient states she was unable to make an appointment with director equipment because there was no answer at the office. Past History - Past Medical History Allergies/Adverse Reactions: Allergies Allergy/AdvReac Type Severity Reaction Status Date / Time No Known Allergies Allergy Verified 08/02/18 16:43 Home Medications: Ambulatory Orders Docusate Sodium [Colace -] 100 mg PO BID #100 capsule 07/28/18 Ferrous Sulfate [Feosol] 325 mg PO BID #60 ud 07/28/18 Warfarin Na [Coumadin -] 10 mg PO DAILY@1800 #7 tablet 07/28/18 COPD: No Other medical history: P.E. 07/31 - Surgical History Cardiac Surgery: Yes (OPEN HEART SURGERY FOR SEPTAL DEFECT) - Suicide/Smoking/Psychosocial Hx Smoking History: Never smoked Hx Alcohol Use: Yes (3 x's monthe 1 or 2 drinks) Substance Use Type: None Hx Substance Use Treatment: No Review of Systems - Review of Systems Constitutional: No: Chills, Fever, Weakness Respiratory: Yes: SOB at Rest Cardiac (ROS): Yes: Chest Pain (positional, worse leaning forward). No: Palpitations ABD/GI: No: Constipated, Diarrhea, Nausea, Vomiting : No: Burning, Dysuria *Physical Exam - Vital Signs Last Vital Signs Temp Pulse Resp BP Pulse Ox 99 F 83 20 135/79 100 08/02/18 16:44 08/02/18 16:44 08/02/18 16:44 08/02/18 16:44 08/02/18 16:44 ED Treatment Course - LABORATORY CBC & Chemistry Diagram: 08/02/18 17:12 08/02/18 17:12 - ADDITIONAL ORDERS Additional order review: Laboratory Results 08/02/18 08/02/18 17:12 17:12 PT with INR 27.40 H INR 2.42 H PTT (Actin FS) 32.5 Sodium 140 Potassium 3.7 Chloride 107 Carbon Dioxide 24 Anion Gap 8 BUN 16 Creatinine 0.9 Creat Clearance w eGFR > 60 Random Glucose 86 Calcium 8.2 L Total Bilirubin 0.2 AST 16 ALT 54 Alkaline Phosphatase 57 Troponin I < 0.02 Total Protein 7.2 Albumin 3.4 08/02/18 17:12 RBC 3.83 MCV 85.9 MCHC 33.1 RDW 18.5 H MPV 8.5 Neutrophils % 34.6 L Lymphocytes % 50.2 H Monocytes % 11.8 H Eosinophils % 2.0 D Basophils % 1.4 Medical Decision Making - Medical Decision Making 08/02/18 23:36 38 yo female recently admitted for submassive PE presents to the ED for RLQ abdominal pain and sudden onset SOB at 10 am. Patient states sitting forward makes her pain worse. DDX: ACS, PE, pericarditis, pleurisy EKG normal Blood work shows pt is in therapeutic INR range, 2 negative trops Heart score less than 3 CTA of chest shows no evidence of PE or acute pathology CT abdomen/pelvis notes uterine fibroids but nothing of further concern IM team feel patient is safe to send home at this time with TIMERS INSPECTOR follow up. *DC/Admit/Observation/Transfer Diagnosis at time of Disposition: Abdominal pain Qualifiers: Abdominal location: right lower quadrant Qualified Code(s): R10.31 - Right lower quadrant pain Chest pain Qualifiers: Chest pain type: chest pain on breathing Qualified Code(s): R07.1 - Chest pain on breathing - Discharge Dispostion Disposition: HOME Condition at time of disposition: Stable Decision to Admit order: No - Referrals Referrals: Javy Guadarrama MD [Staff Physician] - Pam Masterson MD [Staff Physician] - - Patient Instructions Printed Discharge Instructions: DI for Abdominal Pain-Adult, DI for Atypical Chest Pain Additional Instructions: Please make appointment with Gynecology as soon as possible. The likely reason for your abdominal pain is due to your uterine fibroids but close follow up is needed with your specialist. Your Pulmonary Embolus is also likely due to your enlarged uterus. Please follow up with the Primary Care Doctor referred to you within the next 3- 4 days. Take over the counter Motrin for pain relief as directed on the packaging every 4-6 hours as needed. Please return to the Emergency Room for new or worsening symptoms including but not limited to: shortness of breath, chest pain, calf tenderness, coughing up blood or severe abdominal pain not relieved by over the counter medications. - Post Discharge Activity
--- NOTE | 2018-08-02 18:42 | PDOC ---
Attending Attestation - Resident Resident Name: Saroj Mistry - ED Attending Attestation I have performed the following: I have examined & evaluated the patient, The case was reviewed & discussed with the resident, I agree w/resident's findings & plan, Exceptions are as noted - HPI HPI: 08/02/18 18:38 38-year-old female history of a VSD has been repaired recently diagnosed the PE and bilateral DVT likely secondary to a size uterus secondary to fibroids on Coumadin here today complaining of worsening lower abdominal pain and shortness of breath. Patient states she was just discharged from the hospital 5 days ago was doing okay until today she suddenly felt worsening shortness of breath. She is also complaining of lower abdominal pain worse on the right denies any fevers or chills has a cough which is nonproductive denies any urinary complaints did have a vaginal period which was normal denies any melena has been taking her Coumadin as prescribed was supposed to follow up with gynecology regarding the fibroid uterus which is what is believed to have caused her PE however the patient has not yet had a chance to schedule - Physicial Exam PE: 08/02/18 18:40 Awake alert no acute distress lungs are clear bilaterally heart is regular without any murmurs rubs or gallops abdomen is soft there is a palpable lower abdominal mass consistent patient's known fibroid extremities are warm and well perfused did not appreciate any peripheral edema or calf tenderness neurologically patient is alert and oriented 3 - Medical Decision Making 08/02/18 18:40 Differential diagnosis includes worsening PE abdominal pain secondary to fibroid necrosis UTI while nephritis appendicitis fibroid pain pelvic congestion from known clot plan CBC CMP coags will repeat the patient's CT angios to evaluate the size of recurrent PE in addition wreath machine tender CAT scan to her abdomen and pelvis to evaluate other publications over fibroid patient will possibly require admission pending the results of her studies
[2018-08-02 19:28] LABS: URINE APPEARANCE CLEAR; URINE BILIRUBIN NEGATIVE (<2.0 mg/dL); URINE COLOR LTYELLOW; URINE GLUCOSE (UA) NEGATIVE (NEGATIVE); URINE KETONE NEGATIVE (NEGATIVE); URINE LEUK ESTERASE NEGATIVE (NEGATIVE); URINE NITRITE NEGATIVE (NEGATIVE); URINE PROTEIN NEGATIVE (NEGATIVE); URINE UROBILINOGEN NEGATIVE mg/dL (0.2-1.0)
[2018-08-02 19:31] LABS: INR 2.27 (0.83-1.09); PROTHROMBIN TIME (PATIENT) 25.6 SEC (9.7-13.0)
[2018-08-02 19:35] LABS: ACTIVATED PTT 29.9 SECONDS (25.2-36.5)
[2018-08-02 19:57] LABS: EPI CELLS RARE /HPF (FEW); URINE MUCUS RARE
[2018-08-03 00:19] VITALS: BP 120/76; PULSE 82; TEMP 98
--- NOTE | 2018-08-03 00:29 | PN ---
Teaching Attending Note Name of Resident: Aston Aragon ATTENDING PHYSICIAN STATEMENT I saw and evaluated the patient with house staff. She is 38yo woman with PE diagnosed 2 week on coumadin, c/o lower abdominal pain and previously of some chest pain which was resolved at time when I saw patient. When I saw her, she was resting comfortably. Workup including CBC, chemistry, troponin, LFTs, EKG were wnl. CHest CT neg for acute pathology including PE. abd/pelvic CT + for fibroid uterus which is likely culprit for lower abdominal pain. Pt is safe for discharge and agrees to go home with early OBGYN and PCP appointments.
--- NOTE | 2018-08-03 00:36 | HOSP ---
Subjective - Review of Symptoms Subjective: The patient is a 38 yo f w/ PMH large fibroid (11cm by 9cm by 8cm) and recent admission (07/15-07/28) for acute submassive unprovoked PE (on warfarin, last known INR 2.4 this Monday) who comes into the ED c/o sudden onset RLQ pain and SOB. Upon examination, the patient endorses continued RLQ pain, but states that her SOB has resolved. General: No: Chills HEENT: No: Visual Changes Cardiovascular: No: Chest Pain, Palpitations Gastrointestinal: Yes: Abdominal Pain. No: Nausea, Vomiting, Diarrhea Genitourinary: No: Dysuria Neurological: No: Weakness, Numbness Physical Examination Vital Signs: Vital Signs Temperature 98.0 F 08/03/18 00:18 Pulse Rate 82 08/03/18 00:18 Respiratory Rate 18 08/03/18 00:18 Blood Pressure 120/76 08/03/18 00:18 O2 Sat by Pulse Oximetry (%) 99 08/03/18 00:18 Constitutional: Yes: No Distress, Calm Eyes: Yes: Conjunctiva Clear, EOM Intact HENT: Yes: Atraumatic, Normocephalic Cardiovascular: Yes: Regular Rate and Rhythm, S1, S2. No: Gallop, Murmur, Rub Respiratory: Yes: Regular, CTA Bilaterally Gastrointestinal: Yes: Normal Bowel Sounds, Soft, Tenderness (mild tenderness to palpation in the RLQ, no guarding, no rebound.) Edema: No Neurological: Yes: Alert, Oriented Labs: CBC, BMP 08/02/18 17:12 08/02/18 17:12 Hospitalist Encounter Assessment: The patient is a 38 yo f experiencing a RLQ abdominal pain coupled with SOB. The concern here is for worsening of her recent submassive PE as well as further embolic/thrombotic phenomena. -CTAP showed a fibroid uterus unchanged from previous studies. -CTA of the chest showed no changes or worsening of previously seen PE's -Patient's SOB had resolved on our interview -patient on coumadin, INR theraputic -CBC, CMP, troponin, EKG, LFTs all WNL -Patient VSS and saturation WNL throughout ED stay. -based off of above assessment, the patient's lower abdominal pain is likely 2/ 2 to her previously diagnosed fibroids. -Patient agrees to go home and was encouraged to schedule an early [employer]PECTOR [employer] NEGATIVE and PCP appointment for close follow up. Visit type - Emergency Visit Emergency Visit: Yes Care time: The patient presented to the Emergency Department on the above date and was hospitalized for further evaluation of their emergent condition. - New Patient This patient is new to me today: Yes Date on this admission: 08/03/18 - Critical Care Critical Care patient: No
--- NOTE | 2018-08-03 08:06 | EKG ---
Test Reason : Blood Pressure : / mmHG Vent. Rate : 079 BPM Atrial Rate : 079 BPM P-R Int : 132 ms QRS Dur : 074 ms QT Int : 372 ms P-R-T Axes : 046 051 041 degrees QTc Int : 426 ms NORMAL SINUS RHYTHM POSSIBLE LEFT ATRIAL ENLARGEMENT BORDERLINE ECG WHEN COMPARED WITH ECG OF 25-JUL-2018 19:42, NO SIGNIFICANT CHANGE WAS FOUND Confirmed by BLESSING CAPELLAN MD ([id number]) on 08/03/2018 8:06:24 AM Referred By: Confirmed By:BLESSING CAPELLAN MD
== END 2018-08-03 04:06 | disposition home or self-care (01) ==
LOC: JER 16:39
DX: R07.1 Chest pain on breathing (principal); D25.9 Leiomyoma of uterus, unspecified; Z86.711 Personal history of pulmonary embolism; Z86.718 Personal history of other venous thrombosis and embolism; Z79.01 Long term (current) use of anticoagulants
CPT/HCPCS: 36415; 71275-TC; 74177-TC; 80053; 81003; 81015; 82550; 83605; 84484; 84703; 85025; 85610; 85730; 93005; 93010; 99284-25

== ENCOUNTER 2018-10-19 10:08 | Emergency (ER) | payer OTHER ==
[2018-10-19 10:40] VITALS: BP 115/70; PULSE 110; TEMP 100.4; BMI 29.2
--- NOTE | 2018-10-19 11:41 | PDOC ---
History of Present Illness - General Chief Complaint: Pain Stated Complaint: abd pain - History of Present Illness Initial Comments: The patient is a 38F w/ a history of 'heart murmur' s/p reported valve replacement and spontaneous PE (warfarin) who presents for evaluation of 2 days of sharp, left chest pain. The pain is worse and radiates to her back with cough. Pain is also worse with palpation. Denies SOB, vision changes, N/V/C/D. Patient has not tried taking anything for her symptoms because she was worried that it would interact with her warfarin. Endorses 2d of malaise and non-productive cough. Also endorses 2d of generalized VANN that is also worse with cough. Of note she endorses lower pelvic pain. Patient has a history of fibroids and is scheduled to see a surgeon on 10/31/2018. PCP: 10/19/18 11:52 Past History - Past Medical History Allergies/Adverse Reactions: Allergies Allergy/AdvReac Type Severity Reaction Status Date / Time No Known Allergies Allergy Verified 10/19/18 10:36 Home Medications: Ambulatory Orders Docusate Sodium [Colace -] 100 mg PO BID #100 capsule 07/28/18 Ferrous Sulfate [Feosol] 325 mg PO BID #60 ud 07/28/18 Warfarin Na [Coumadin -] 10 mg PO DAILY@1800 #7 tablet 07/28/18 Cardiac Disorders: Yes (VSD) COPD: No Other medical history: PE - Surgical History Cardiac Surgery: Yes (OPEN HEART SURGERY FOR SEPTAL DEFECT) - Immunization History Immunization Up to Date: Yes - Suicide/Smoking/Psychosocial Hx Smoking History: Never smoked Hx Alcohol Use: No Drug/Substance Use Hx: No Substance Use Type: None Hx Substance Use Treatment: No Review of Systems - Review of Systems Able to Perform ROS?: Yes Comments:: GENERAL/CONSTITUTIONAL: No fever or chills. No weakness HEAD, EYES, EARS, NOSE AND THROAT: No change in vision. No ear pain or discharge. No sore throat CARDIOVASCULAR: No shortness of breath RESPIRATORY: Denies hemoptysis GASTROINTESTINAL: No nausea, vomiting, diarrhea or constipation GENITOURINARY: No dysuria, frequency, or change in urination MUSCULOSKELETAL: No joint or muscle swelling or pain. No neck or back pain SKIN: No rash NEUROLOGIC: No vertigo, loss of consciousness, or change in strength/sensation ENDOCRINE: No increased thirst. No abnormal weight change HEMATOLOGIC/LYMPHATIC: No anemia, easy bleeding, or history of blood clots ALLERGIC/IMMUNOLOGIC: No hives or skin allergy 10/19/18 11:59 Is the patient limited Colombian proficient: No *Physical Exam - Vital Signs Last Vital Signs Temp Pulse Resp BP Pulse Ox 100.4 F H 110 H 18 115/70 109 H 10/19/18 10:36 10/19/18 10:36 10/19/18 10:36 10/19/18 10:36 10/19/18 10:36 - Physical Exam Comments: GENERAL: Awake, alert, and fully oriented, in no acute distress HEAD: No signs of trauma, normocephalic, atraumatic EYES: PERRLA, EOMI, sclera anicteric, conjunctiva clear ENT: Hearing grossly normal, nares patent, oropharynx clear without exudates. Moist mucosa LUNGS: No distress, speaks full sentences, clear to auscultation bilaterally HEART: Regular rate and rhythm, normal S1 and S2, mild anterior chest wall TTP, no murmurs appreciated, peripheral pulses normal and equal bilaterally ABDOMEN: Soft, nontender, normoactive bowel sounds. No guarding, no rebound EXTREMITIES : Normal inspection, Normal range of motion, no edema. No clubbing or cyanosis NEUROLOGICAL: Cranial nerves II through XII grossly intact. Normal speech, normal gait, no focal sensorimotor deficits SKIN: Warm, Dry, normal turgor, no rashes or lesions noted 10/19/18 12:08 Moderate Sedation - Procedure Monitoring Vital Signs: Procedure Monitoring Vital Signs Temperature 100.4 F H 10/19/18 10:36 Pulse Rate 110 H 10/19/18 10:36 Respiratory Rate 18 10/19/18 10:36 Blood Pressure 115/70 10/19/18 10:36 O2 Sat by Pulse Oximetry (%) 109 H 10/19/18 10:36 ED Treatment Course - LABORATORY CBC & Chemistry Diagram: 10/19/18 12:30 10/19/18 12:30 Medical Decision Making - Medical Decision Making The patient is a 38F w/ a history of VSD s/p repair and spontaneous PE in 2017 (warfarin) who presents for evaluation of 2d of sharp, L-sided chest pain that radiates to her back with coughing. ED Course CMP, CBC, cardiac enzymes, coags, UA ECG CXR Tylenol 975mg PO once for pain/fever 10/19/18 12:08 No leukocytosis No anemia No DOUGLAS Lytes wnl LFTs wnl INR elevated to 4.12, PTT 49 10/19/18 14:00 Upreg neg 10/19/18 15:18 CT scan pending 10/19/18 15:29 CTA neg for PE or other acute pathology Plan for D/C w/ PCP f/u Discharge instructions and return precautions given Plan discussed w/ patient who is in agreement and verbalizes understanding Dispo: home 10/19/18 16:33 *DC/Admit/Observation/Transfer Diagnosis at time of Disposition: Cough - Discharge Dispostion Condition at time of disposition: Stable Decision to Admit order: No - Referrals Referrals: Cheyanne Solano MD [Staff Physician] - [facility] [Provider Group] - Patient Instructions Printed Discharge Instructions: DI for Cough -- Adult Additional Instructions: You were seen in the Emergency Department for evaluation of cough and chest pain. You were evaluated and found to have a normal CT of the chest and your labs were normal as well. Please review the handout provided at discharge. Please follow up with your primary care provider within the next 1-3 days. Return to the Emergency Department if you symptoms worsen, you develop vomiting , diarrhea, shortness of breath, or new/concerning symptoms. - Post Discharge Activity
[2018-10-19] MEDS ORDERED: ACETAMINOPHEN 325 MG TABLET (FP) PO ONE (12:10)
--- NOTE | 2018-10-19 12:11 | PDOC ---
Attending Attestation - HPI HPI: 10/19/18 13:32 The patient is a 38 year old female, with a significant past medical history of heart murmur (s/p valve replacement) and PE (Warfarin), who presents to the emergency department with, 2 days of chest pain, generalized weakness, and cough. She describes her chest pain as left sided and sharp. She endorses the pain to worsen with deep inspiration and coughing. She denies recent fevers, chills, or dizziness. She denies recent nausea, vomit , diarrhea or constipation. She denies recent dysuria, frequency, urgency or hematuria. Allergies: NKDA Primary Care Physician: Dr. Guadarrama <Charanjit Adame - Last Filed: 10/19/18 13:32> - Resident Resident Name: Martin Botello - ED Attending Attestation I have performed the following: I have examined & evaluated the patient, The case was reviewed & discussed with the resident, I agree w/resident's findings & plan, Exceptions are as noted - Physicial Exam PE: 10/19/18 13:38 GENERAL: The patient is awake, alert, and fully oriented, Nontoxic - in no acute distress. HEAD: Normocephalic, atraumatic. EYES: extraocular movements intact, sclera anicteric, conjunctiva clear. ENT: Normal voice, Moist mucous membranes. NECK: Normal range of motion, supple LUNGS: Breath sounds equal, clear to auscultation bilaterally. No wheezes, no rhonchi, no rales. HEART: slightly tachycardic, normal S1 and S2 without murmur, rub or gallop. EXTREMITIES: Normal range of motion, no edema. Negative Homans signs, no calf tenderness NEUROLOGICAL: No facial assymetry, Normal speech, PSYCH: Normal mood, normal affect. SKIN: Warm, Dry, normal turgor, - Medical Decision Making 10/19/18 13:16 38y F hx of fibroids, recent diagnosis of PE on coumadin presents with 2 days of intermittent L sided sharp chest pain radiating to the back with coughing. no prior similar episodes of cp in the past. pt endorses non productive cough for the past fe days, denies n/v, dysuria, schuster, hemoptysis,, leg swelling. on exam pt in no distress pulm clear to asculltation, no acute respiratorydistress card: tachycardic, no mrg ext: no edema, neg homans, no calf tenderness will obtain labs consider pe - will obtain CTA will reassess 10/19/18 16:33 cta negative INR slightly elevated - will hold coumadin for a dose will hvae pt fu with PMD for recheck <Steve Yañez - Last Filed: 10/19/18 16:33> Heart Score/ECG Review - ECG Impressions Comment:: 10/19/18 13:39 Twelve-lead EKG was performed and reviewed by me. There is normal sinus rhythm with a rate of 100 Occasional PVCs noted The axis is normal. The intervals are normal. There is normal R wave progression There are no ST or T wave abnormalities. <Steve Yañez - Last Filed: 10/19/18 16:33> Attestations - Attestations 10/19/18 13:32 Documentation prepared by Charanjit Adame, acting as medical nurse for Steve Yañez MD. <Charanjit Adame - Last Filed: 10/19/18 13:32>
[2018-10-19] MEDS ORDERED: ACETAMINOPHEN 325 MG TABLET (FP) ONE (12:20)
[2018-10-19 12:56] LABS: BASO % 0.8 % (0-2.0); EOS % 0.1 % (0-4.5); HEMATOCRIT 34.2 % (32.4-45.2); LYMPH % 18.5 % (8-40); MCH 28.4 pg (25.7-33.7); MCHC 32.2 g/dl (32.0-36.0); MEAN CELL VOLUME 88.2 fl (80-96); MEAN PLT VOLUME 7.6 fl (7.5-11.1); MONO % 14.1 % (3.8-10.2); NEUT % 66.5 % (42.8-82.8); PLATELET COUNT 370 K/MM3 (134-434); RBC 3.88 M/mm3 (3.60-5.2); RDW 17.2 % (11.6-15.6); WHITE BLOOD COUNT 8.2 K/mm3 (4.0-10.0)
[2018-10-19 13:28] LABS: PROTHROMBIN TIME (PATIENT) 49.3 SEC (9.7-13.0)
[2018-10-19 13:38] LABS: ALBUMIN 2.8 g/dl (3.4-5.0); ALK PHOS 70 U/L (45-117); ANION GAP 10 MMOL/L (8-16); BILIRUBIN,TOTAL 0.3 mg/dL (0.2-1); BLOOD UREA NITROGEN 9 mg/dL (7-18); CALCIUM 7.6 mg/dL (8.5-10.1); CHLORIDE 101 mmol/L (98-107); CO2 25 mmol/L (21-32); CREATININE 0.8 mg/dL (0.55-1.3); GLUCOSE,RANDOM 83 mg/dL (74-106); POTASSIUM 3.7 mmol/L (3.5-5.1); SGOT/AST 20 U/L (15-37); SGPT/ALT 18 U/L (13-61); SODIUM 136 mmol/L (136-145); TOT PROT 7.3 g/dl (6.4-8.2)
[2018-10-19 14:00] LABS: INR 4.12 (0.83-1.09)
[2018-10-19 16:46] LABS: URINE APPEARANCE CLEAR; URINE BILIRUBIN NEGATIVE (<2.0 mg/dL); URINE COLOR YELLOW; URINE GLUCOSE (UA) NEGATIVE (NEGATIVE); URINE KETONE TRACE (NEGATIVE); URINE LEUK ESTERASE NEGATIVE (NEGATIVE); URINE NITRITE NEGATIVE (NEGATIVE); URINE PROTEIN NEGATIVE (NEGATIVE); URINE UROBILINOGEN NEGATIVE mg/dL (0.2-1.0)
[2018-10-19 16:47] LABS: HCG,QUALITATIVE URINE Negative
[2018-10-19 17:50] LABS: EPI CELLS RARE /HPF (FEW); URINE HYALINE CAST 2 /lpf; URINE MUCUS FEW
--- NOTE | 2018-10-19 19:00 | EKG ---
Test Reason : Blood Pressure : / mmHG Vent. Rate : 100 BPM Atrial Rate : 100 BPM P-R Int : 118 ms QRS Dur : 072 ms QT Int : 342 ms P-R-T Axes : 038 051 035 degrees QTc Int : 441 ms SINUS RHYTHM WITH OCCASIONAL PREMATURE VENTRICULAR COMPLEXES OTHERWISE NORMAL ECG WHEN COMPARED WITH ECG OF 02-AUG-2018 16:47, PREMATURE VENTRICULAR COMPLEXES ARE NOW PRESENT Confirmed by MARILIA BARRIOS, BLESSING ([id number]) on 10/19/2018 6:59:39 PM Referred By: Confirmed By:BLESSING CAPELLAN MD
== END 2018-10-19 16:53 | disposition home or self-care (01) ==
LOC: JER 10:08
DX: R05 Cough (principal); Z87.898 Personal history of other specified conditions
CPT/HCPCS: 36415; 71046-TC-FY; 71275-TC; 80053; 81003; 81015; 84703; 85025; 85027; 85379; 85610; 85730; 93005; 93010; 99283-25

== ENCOUNTER 2019-03-31 15:55 | Emergency (ER) | payer OTHER ==
[2019-03-31 16:01] VITALS: PULSE 85; BMI 30.6
--- NOTE | 2019-03-31 16:08 | PDOC ---
History of Present Illness - General Chief Complaint: Pain Stated Complaint: CLOT IN LUNG Time Seen by Provider: 03/31/19 16:05 History Source: Patient - History of Present Illness Initial Comments: 03/31/19 16:16 The patient is a 38 year old female with a PMH of VSD (s/p repair in 1997) and PE (2018 - A/C on Coumadin) who presents to our ED c/o pressure like chest pain. While eating lunch patient began experiencing a substernal, pressure like chest pain, 9/10 w/associated shortness of breath prompting her visit to our ED. Patient states she was evaluated at [facility] earlier today for R sided stabbing chest pain at which time CT scan showed PE and she was started on Eliquis. Patient currently on Warfarin (Lovenox bridge) following a hysterectomy five days previous. States she received one dose of Eliquis and then went home. States she follows with with Dr. Marin (Hematology). NKDA Surgical: VSD repair (1997); hysterectomy (03/27/19) Social: denies toxic habits PMD: Dr. Thierry Palafox M.D. Hematology: Dr. Tania Burton [phone] 03/31/19 16:20 Case d/w Dr. Dugan, [facility], Dr. 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 Past History - Past Medical History Allergies/Adverse Reactions: Allergies Allergy/AdvReac Type Severity Reaction Status Date / Time No Known Allergies Allergy Verified 03/31/19 16:00 Home Medications: Ambulatory Orders Docusate Sodium [Colace -] 100 mg PO BID #100 capsule 07/28/18 Ferrous Sulfate [Feosol] 325 mg PO BID #60 ud 07/28/18 Warfarin Na [Coumadin -] 10 mg PO DAILY@1800 #7 tablet 07/28/18 Cardiac Disorders: Yes (VSD) COPD: No - Surgical History Cardiac Surgery: Yes (OPEN HEART SURGERY FOR SEPTAL DEFECT) - Immunization History Immunization Up to Date: Yes - Suicide/Smoking/Psychosocial Hx Smoking History: Never smoked Hx Alcohol Use: No Drug/Substance Use Hx: No Substance Use Type: None Hx Substance Use Treatment: No Review of Systems - Review of Systems Constitutional: No: Chills, Fever HEENTM: No: Blurred Vision, Recent change in vision Respiratory: Yes: Shortness of Breath. No: Cough Cardiac (ROS): Yes: Chest Pain, Lightheadedness. No: Syncope ABD/GI: No: Constipated, Diarrhea, Nausea, Vomiting *Physical Exam - Vital Signs Last Vital Signs Temp Pulse Resp BP Pulse Ox 99.2 F 85 18 128/80 100 03/31/19 15:57 03/31/19 15:57 03/31/19 15:57 03/31/19 15:57 03/31/19 15:57 - Physical Exam Comments: 03/31/19 18:14 Awake, alert, visibly anxious General Appearance: Yes: Nourished, Appropriately Dressed HEENT: positive: Normal Voice, Hearing Grossly Normal Neck: positive: Trachea midline, Supple Respiratory/Chest: positive: Lungs Clear, Normal Breath Sounds Cardiovascular: positive: S1, S2. negative: Edema, Murmur Vascular Pulses: Dorsalis-Pedis (R): 2+, Doralis-Pedis (L): 2+ Heart Score/ECG Review - ECG Impressions Comment:: 03/31/19 16:30 NSR HR 83, normal intervals, no AYANNA/STD/TWI, no S1T3Q3 - non ischemic EKG ED Treatment Course - LABORATORY CBC & Chemistry Diagram: 03/31/19 16:13 03/31/19 16:13 Medical Decision Making - Medical Decision Making 03/31/19 16:27 38 year old female with PE diagnosed currently today (on A/C) presents with onset of substernal pressure like chest pain. VS unremarkable. Will evaluate for r/o ACS. Pending record review from [facility]. Cardiac Enzymes, PT /INR, basic labs pending. Reassess. 03/31/19 16:29 EKG negative for acute changes indicating PE (S1Q3T3) and non-ischemic as documented in EKG section of EMR 03/31/19 17:19 Patient reassessed @ bedside VSS CP stable, continues to decline pain medication CMP unremarkable, awaiting Troponin 03/31/19 17:46 Troponin (-) x1 INR subtherapeutic @ 1.39 03/31/19 17:58 Case d/w Dr. An - agrees w/Eliquis and d/c home. Recommends confirmation of insurance coverage for Eliquis 03/31/19 18:03 [facility] CTA report reviewed - new RLL PE 03/31/19 18:08 Patient reassessed @ bedside, will call pharamcy to confirm insurance coverage of Eliqus Amenable to pain medication - will give OTD of IV Toradol 03/31/19 18:32 Patient confirmed w/pharmacy Eliquis covered by insurance; will give evening dose of Eliquis and discharge home with return precautions and hematology follow -up evaluation. 03/31/19 18:51 Patient reassessed @ bedside VSS Chest pain improved from 9/10 --> 6/10 s/p Toradol Previously scheduled follow-up with hematology, Dr. Marin, tomorrow (04/01) @ 9 a.m. Patient is well appearing, with normal vitals. Clinically stable for DC at this time. I discussed the physical exam findings, ancillary test results and final diagnoses with the patient. I answered all of the patient's questions. The patient was satisfied with the care received and felt comfortable with the discharge plan and treatment plan. The patient agrees to follow up with the primary care physician within 24-72 hours. *DC/Admit/Observation/Transfer Diagnosis at time of Disposition: Pulmonary embolism - Discharge Dispostion Disposition: HOME Condition at time of disposition: Good Decision to Admit order: No - Referrals Referrals: Javy Guadarrama MD [Primary Care Provider] - - Patient Instructions Printed Discharge Instructions: DI for Pulmonary Embolism, DI for Atypical Chest Pain Additional Instructions: At this time you are safe for discharge home. We have given you the evening dose of your Eliquis. Please start taking your prescribed Eliquis as directed tomorrow. You must follow-up with your ore roaster within the next 3 days. Your care is not complete until you are evaluated by your ore roaster. Return to the Emergency Department for any new/worsening/concerning symptoms. - Post Discharge Activity
[2019-03-31 16:40] LABS: BASO % 1.7 % (0-2.0); EOS % 1.5 % (0-4.5); HEMATOCRIT 28.9 % (32.4-45.2); HEMOGLOBIN 9.4 GM/dL (10.7-15.3); LYMPH % 39.5 % (8-40); MCH 27.7 pg (25.7-33.7); MCHC 32.3 g/dl (32.0-36.0); MEAN CELL VOLUME 85.9 fl (80-96); MEAN PLT VOLUME 8.3 fl (7.5-11.1); MONO % 9.2 % (3.8-10.2); NEUT % 48.1 % (42.8-82.8); PLATELET COUNT 251 K/MM3 (134-434); RBC 3.37 M/mm3 (3.60-5.2); RDW 18.4 % (11.6-15.6); WHITE BLOOD COUNT 4.1 K/mm3 (4.0-10.0)
[2019-03-31 16:52] LABS: INR 1.39 (0.83-1.09); PROTHROMBIN TIME (PATIENT) 16.4 SEC (9.7-13.0)
[2019-03-31 16:55] LABS: ACTIVATED PTT 33.4 SECONDS (25.2-36.5)
[2019-03-31 17:08] LABS: ALBUMIN 2.6 g/dl (3.4-5.0); ALK PHOS 48 U/L (45-117); ANION GAP 1 MMOL/L (8-16); BILIRUBIN,TOTAL 0.2 mg/dL (0.2-1); BLOOD UREA NITROGEN 11 mg/dL (7-18); CHLORIDE 109 mmol/L (98-107); CO2 27 mmol/L (21-32); CREATININE 0.7 mg/dL (0.55-1.3); GLUCOSE,RANDOM 111 mg/dL (74-106); POTASSIUM 3.6 mmol/L (3.5-5.1); SGOT/AST 14 U/L (15-37); SGPT/ALT 18 U/L (13-61); SODIUM 137 mmol/L (136-145); TOT PROT 6.2 g/dl (6.4-8.2)
[2019-03-31 17:44] LABS: N-TERMINAL BNP 178.8 pg/ml (5-125)
--- NOTE | 2019-03-31 17:57 | PDOC ---
Documentation entered by Baron Nelson SCRIBE, acting as scribe for Yecenia Streeter MD. Yecenia Streeter MD: This documentation has been prepared by the debraibOmar ferrer Daniel, SCRIBE, under my direction and personally reviewed by me in its entirety. I confirm that the documentation accurately reflects all work, treatment, procedures, and medical decision making performed by me. Attending Attestation - Resident Resident Name: Nilsa Meredith - HPI HPI: 03/31/19 16:38 The patient is a 38 year old female with a past medical history of VSD (s/p repair in 1997) and PE (2018 - A/C on Coumadin) here today for evaluation of chest pain. The patient reports that she was diagnosed with a PE earlier today at [facility] when she went in for right sided chest pain. She reports that her current chest pain is different, is localized to the substernal area, and notes associated shortness of breath. Patient denies headache, lightheadedness. Denies fever, chills. Denies nausea, vomiting, diarrhea, abdominal pain. Denies lower extremity edema. Allergies: NKA PCP: Javy Guadarrama 03/31/19 17:50 wnwd 38 yo female who is 5 days s/p hysterectomy was diagnosed with PE earlier today at [facility] and given lovenox sq and started on eliquis She came because she was having chest pain that seemed a different caliber than her PE pain ekg nsr @ 83 bpm - Physicial Exam PE: 03/31/19 17:55 wnwd 38 yo female with chest discomfort hed ncat neck supple lungs cta b/l cvs [id number] abd nontender ext no pitting edema skin warm and dry neuro axo3,ambulatory - Medical Decision Making 03/31/19 17:57 cpk 98, trop <0.02 ekg nsr with no rt heart strain 03/31/19 18:11 I read the faxed ct scan of brain dictated report done at [facility] earlier today that reported a new light lower lobe pulmonary embolism Dr Meredith did speak with [facility] ER physician who treated this patient earlier today to conform her treatment 03/31/19 18:18 -pt is currently calling her pharmacy to see if her insurance will actually pay for the eliquis prescription 03/31/19 18:55 Her prescription plan will cover the eliqius. We gave her the second dose of eliquis here before discharging her home Tomorrow she has an appt with hemotologist Dr Byrne
[2019-03-31] MEDS ORDERED: KETOROLAC TROMETHAMINE 30 MG/1 ML VIAL IVPUSH ONE (18:07)
[2019-03-31] MEDS ORDERED: KETOROLAC TROMETHAMINE 30 MG/1 ML VIAL ONE (18:10)
[2019-03-31] MEDS ORDERED: APIXABAN 5 MG TABLET PO ONE ×2 (18:31→18:37)
[2019-03-31 18:59] VITALS: BP 113/79; TEMP 98
--- NOTE | 2019-04-01 11:04 | EKG ---
Test Reason : Blood Pressure : / mmHG Vent. Rate : 083 BPM Atrial Rate : 083 BPM P-R Int : 130 ms QRS Dur : 080 ms QT Int : 356 ms P-R-T Axes : 029 049 048 degrees QTc Int : 418 ms NORMAL SINUS RHYTHM NORMAL ECG WHEN COMPARED WITH ECG OF 19-OCT-2018 13:23, PREMATURE VENTRICULAR COMPLEXES ARE NO LONGER PRESENT Confirmed by SAMANTHA SOLANO MD ([id number]) on 04/01/2019 11:03:44 AM Referred By: Confirmed By:SAMANTHA SOLANO MD
== END 2019-03-31 19:00 | disposition home or self-care (01) ==
LOC: JER 15:55
PROC: 3E0333Z Introduction of Anti-inflammatory into Peripheral Vein, Percutaneous Approach (ICD-10-PCS; principal; 2019-03-31)
DX: I26.99 Other pulmonary embolism without acute cor pulmonale (principal); Z79.01 Long term (current) use of anticoagulants; Z98.890 Other specified postprocedural states; Z86.79 Personal history of other diseases of the circulatory system
CPT/HCPCS: 36415; 71045-TC-FY; 80053; 82550; 83880; 84484; 85025; 85610; 85730; 93005; 93010; 96374; 99285-25

== ENCOUNTER 2019-04-01 10:35 | Observation (INO) | payer OTHER ==
[~2019-04-01 10:35] MED LIST: PANTOPRAZOLE 40 MG TABLET (FP) PO SCH
[2019-04-01 11:30] VITALS: BMI 30.6
--- NOTE | 2019-04-01 12:51 | PDOC ---
History of Present Illness - General History Source: Patient, Old Records, Other ([facility] Records.) Exam Limitations: No Limitations - History of Present Illness Initial Comments: HPI: 38 y/o female presenting to [facility] ER from Dr. Tania Flor office for left sided chest pain suspected to be secondary to newly discovered PE on CTA at [facility] yesterday. Dr. Elias provided pre-arrival notification. Requested DVT study, repeat blood work, and observation admission. Considering repeat CTA tomorrow. Reports pt is taking Apixaban 10mg BID. On arrival, the pt states she has been experiencing left sided chest and shoulder pain with exertional SOB and lightheadedness. Yesterday, the pain radiated to the back, but this resolved. Denies palpitations, or pain to neck, upper extremities, or abdomen. No syncope. Pt is s/p hysterectomy on Monday of last week for large uterine fibroid. Pt has a h/o of PE, diagnosed July 2018. Was previously on Coumadin. Started on Lovenox post-op, but found to be subtherapeutic at [facility]. Transitioned to Apixaban, which pt did not take this morning. Records obtained from [facility] (included in paper chart). CTA report indicates new right lower lobe PE, which was not present on CTA dated 10/2018 (per provider note). PCP: Dr. Guadarrama Superintendent Refuse Disposal: Dr. Tania Elias Medical Hx: - PE (Jul 2018 and March 2019) - S/p VSD Repair (1997) - S/p Hysterectomy (March 2019) Review of Systems: In addition to that documented in the HPI above, the additional ROS was obtained : Constitutional: Denies fevers or chills Head: Denies vision changes ENMT: Denies sore throat CV: Per HPI Resp: Per HPI GI: Denies vomiting or diarrhea : Denies painful urination MSK: Denies recent trauma Skin: Endorses bruise to R shoulder and lower abdomen Neuro: Denies new numbness or tingling or weakness Endocrine: Denies polyuria Heme: Denies excessive bleeding or bruising Physical Examination: Constitutional: Well-developed, well-nourished female in no acute distress or obvious discomfort. Found semi-fowlers on hospital bed. Alert and oriented x4. Answered all questions appropriately and completely. Speech was non-labored, non -pressured. Head: Normocephalic. No obvious external signs of trauma. Eyes: Sclerae white. Ears: Hearing grossly intact. Nose: No nasal discharge. Neck: Supple, trachea is midline. Cardiovascular / Chest: Regular rate and regular rhythm. No murmur, rubs, clicks , or gallops. Peripheral pulses: radial pulses full. Diffuse tenderness to left upper, outer chest and L shoulder with small 1.5cm circular bruise. Respiratory: Breathing unlabored. No tachypnea or retractions. Equal chest rise and fall. Clear to auscultation bilaterally. No stridor, no wheezing, no rhonchi. Gastrointestinal: abdomen is soft, non-tender, non-distended. Surgical phuc in place in midline below the umbilicus. Post-op site is clean, dry, and well appearing. Neuro: Alert and oriented. Moving all four extremities spontaneously. Skin/MSK: Diffuse R calf tenderness without overlying skin changes or warmth. Globally, skin is warm, and dry. : No R or L CVA tenderness. Psych: Affect: appropriate. Mood: normal. <Luisito Del Valle - Last Filed: 04/01/19 16:40> <Janet Pedroza - Last Filed: 04/04/19 12:29> - General Chief Complaint: Pain, Acute Stated Complaint: PCP SENT/PE Time Seen by Provider: 04/01/19 11:46 Past History - Past Medical History Cardiac Disorders: Yes (VSD) COPD: No - Surgical History Cardiac Surgery: Yes (OPEN HEART SURGERY FOR SEPTAL DEFECT) - Immunization History Immunization Up to Date: Yes - Suicide/Smoking/Psychosocial Hx Smoking History: Unknown if ever smoked Hx Alcohol Use: No Drug/Substance Use Hx: No Substance Use Type: None Hx Substance Use Treatment: No <Luisito Del Valle - Last Filed: 04/01/19 16:40> <Janet Pedroza - Last Filed: 04/04/19 12:29> - Past Medical History Allergies/Adverse Reactions: Allergies Allergy/AdvReac Type Severity Reaction Status Date / Time No Known Allergies Allergy Verified 03/31/19 16:00 Home Medications: Ambulatory Orders Docusate Sodium [Colace -] 100 mg PO BID #100 capsule 07/28/18 Ferrous Sulfate [Feosol] 325 mg PO BID #60 ud 07/28/18 Apixaban [Eliquis -] 10 mg PO BID 04/01/19 Pantoprazole Sodium [Protonix -] 40 mg PO DAILY tablet.ec 04/03/19 *Physical Exam - Vital Signs Last Vital Signs Temp Pulse Resp BP Pulse Ox 98.4 F 71 18 113/71 100 04/01/19 11:27 04/01/19 11:27 04/01/19 11:27 04/01/19 11:27 04/01/19 11:27 <Luisito Del Valle - Last Filed: 04/01/19 16:40> - Vital Signs Last Vital Signs Temp Pulse Resp BP Pulse Ox 98.5 F 81 18 100/55 L 99 04/03/19 14:00 04/03/19 14:00 04/03/19 14:00 04/03/19 14:00 04/03/19 14:00 <Janet Pedroza - Last Filed: 04/04/19 12:29> ED Treatment Course - LABORATORY CBC & Chemistry Diagram: 04/01/19 15:37 04/01/19 15:37 - RADIOLOGY Radiology Studies Ordered: Category Date Time Status CHEST PA & LAT [RAD] Stat Radiology 04/01/19 11:47 Ordered DUPLEX VASCUL US-2LEGS [US] Stat Ultrasound 04/01/19 12:41 Ordered <Luisito Del Valle - Last Filed: 04/01/19 16:40> - LABORATORY CBC & Chemistry Diagram: 04/03/19 05:30 04/03/19 05:30 - ADDITIONAL ORDERS Additional order review: 04/01/19 15:37 RBC 3.64 MCV 85.9 MCHC 31.6 L RDW 18.4 H MPV 8.7 Neutrophils % 51.2 Lymphocytes % 37.0 Monocytes % 8.8 Eosinophils % 1.7 Basophils % 1.3 - Medications Given in the ED: ED Medications Discontinued Medications Generic Name Dose Route Start Last Admin Trade Name Freq PRN Reason Stop Dose Admin Acetaminophen 650 mg 04/01/19 18:15 04/02/19 08:57 Tylenol - PO 650 mg Q4H PRN Administration PAIN LEVEL 1-5 Apixaban 10 mg 04/01/19 13:00 04/01/19 13:06 Eliquis - PO 10 mg BID JEOVANY Administration Apixaban 10 mg 04/01/19 22:00 04/03/19 09:02 Eliquis - PO 10 mg BID JEOVANY Administration Docusate Sodium 100 mg 04/01/19 22:00 04/03/19 09:02 Colace - PO 100 mg BID JEOVANY Administration Ferrous Sulfate 325 mg 04/01/19 22:00 04/03/19 09:02 Feosol - PO 325 mg BID JEOVANY Administration Pantoprazole Sodium 40 mg 04/01/19 22:15 04/03/19 09:02 Protonix - PO 40 mg DAILY JEOVANY Administration <Janet Pedroza - Last Filed: 04/04/19 12:29> *DC/Admit/Observation/Transfer - Discharge Dispostion Decision to Admit order: Yes <Luisito Del Valle - Last Filed: 04/01/19 16:40> - Discharge Dispostion Decision to Admit order: Yes <Janet Pedroza - Last Filed: 04/04/19 12:29> Diagnosis at time of Disposition: Chest pain made worse by breathing Pulmonary embolism Qualifiers: Pulmonary embolism type: other Chronicity: unspecified Acute cor pulmonale presence: without acute cor pulmonale Qualified Code(s): I26.99 - Other pulmonary embolism without acute cor pulmonale - Discharge Dispostion Condition at time of disposition: Good
--- NOTE | 2019-04-01 12:58 | PDOC ---
Attending Attestation - Resident Resident Name: Luisito Del Valle - ED Attending Attestation I have performed the following: I have examined & evaluated the patient, The case was reviewed & discussed with the resident, I agree w/resident's findings & plan - HPI HPI: 04/01/19 14:19 38 year old female with a PMH of VSD (s/p repair in 1997) and PE (2018 - A/C), fibroids s/p MAMIE 1 week ago, presents with CP and SOB. Yesterday seen at [facility] ED, Dr. Dugan evaluated patient earlier today states CTA showed tiny subsegmental PE in R base; case d/w Dr. Root (works with patient's fiscal assistant), d/c'ed patient's Lovenox and Warfarin as patient was subtherapeutic @ 1.9; patient given Lovenox (85mg) and Eliquis (10 mg) and discharged home with Eliquis prescription. PMD: Dr. Thierry Palafox M.D. Hematology: Dr. Tania Burton [phone] - Physicial Exam PE: 04/01/19 13:36 Agree with the resident's HPI and PE as documented in the electronic medical record. NAD, well appearing, PERRL, EOMI, MMM, nl conjunctiva, anicteric; neck supple. lungs clear, RRR, abdomen soft nontender. BRIDGES x4, no focal neuro deficits. No peripheral edema. normal color for ethnicity, WWP. +right calf tenderness. 04/01/19 14:19 - Medical Decision Making 04/01/19 13:36 See HPI for details. Prior notes reviewed, including admissions, discharges and consultations. Vital signs reviewed, wnl. laboratory results and imaging reviewed, basic labs and lytes wnl, notable for baseline anemia Cardiac panel_neg trop EKG normal sinus rhythm at 77 bpm, no interval abnormalities, narrow QRS, ST and T wave segments and morphology normal. ED course Duplex is negative for DVT normal iliac vessels X-ray clear no acute pathology. - admit for SOB/PE eval, heme cs. on AC for PE, new PE on top of current AC therapy 04/01/19 15:26 04/01/19 15:27 04/02/19 15:05 Heart Score/ECG Review #1 ECG reviewed & interpreted by me at: 11:50 General ECG Interpretation: Sinus Rhythm, Normal Rate, Normal Intervals Compared to previous ECG there are: No significant change 04/01/19 13:37 EKG normal sinus rhythm at 77 bpm, no interval abnormalities, narrow QRS, ST and T wave segments and morphology normal.
[2019-04-01] MEDS ORDERED: APIXABAN 5 MG TABLET PO SCH (13:00)
[2019-04-01] MEDS ORDERED: APIXABAN 5 MG TABLET PO ONE (13:04)
[2019-04-01 15:56] LABS: BASO % 1.3 % (0-2.0); EOS % 1.7 % (0-4.5); HEMATOCRIT 31.3 % (32.4-45.2); HEMOGLOBIN 9.9 GM/dL (10.7-15.3); MCH 27.2 pg (25.7-33.7); MCHC 31.6 g/dl (32.0-36.0); MEAN CELL VOLUME 85.9 fl (80-96); MEAN PLT VOLUME 8.7 fl (7.5-11.1); MONO % 8.8 % (3.8-10.2); NEUT % 51.2 % (42.8-82.8); PLATELET COUNT 251 K/MM3 (134-434); RBC 3.64 M/mm3 (3.60-5.2); RDW 18.4 % (11.6-15.6); WHITE BLOOD COUNT 4.5 K/mm3 (4.0-10.0)
[2019-04-01 16:36] LABS: ALBUMIN 2.9 g/dl (3.4-5.0); ALK PHOS 46 U/L (45-117); ANION GAP 8 MMOL/L (8-16); BILIRUBIN,TOTAL 0.1 mg/dL (0.2-1); BLOOD UREA NITROGEN 10 mg/dL (7-18); CALCIUM 8.4 mg/dL (8.5-10.1); CHLORIDE 104 mmol/L (98-107); CO2 25 mmol/L (21-32); CREATININE 0.6 mg/dL (0.55-1.3); GLUCOSE,RANDOM 80 mg/dL (74-106); POTASSIUM 4.2 mmol/L (3.5-5.1); SGOT/AST 26 U/L (15-37); SGPT/ALT 28 U/L (13-61); SODIUM 137 mmol/L (136-145); TOT PROT 6.8 g/dl (6.4-8.2)
--- NOTE | 2019-04-01 19:03 | HP ---
Admitting History and Physical - Primary Care Physician PCP: Javy Guadarrama - Admission Chief Complaint: RLL Pulmonary emboli History of Present Illness: 38 year old F with h/o VSD repaired in 1996, uterine fibroids s/p MAMIE 03/25/19, chronic PEs on Lovenox to coumadin bridge post op presents are referred by her computer forensics analyst for evaluation and management of new RLL PE. Pt was first diagnosed with PE in jul 2018 after syncopal event, where she was found to have extensive Pulmonary Emboli in right upper lobe, right posterior basilar, and right middle lobe segmental arteries, right pulmonary artery, left upper lobe anterior segmental artery. Lower extremity duplex ultrasound showed no evidence of DVT in B/L legs. PAtient discharged home on coumadin. Pt reports undergoing uncomplicated MAMIE exactly one week ago, she was discharged home on Lovenox bridge to Coumadin, in addition to incentive spirometry and frequent ambulation to prevent DVTs. At 3am, Monday, 03/31 Coby reports sudden onset left sided 10/10 sharp/ stabbing chest pain radiating to upper back. After two hours without relief, she decided to visit [facility] ED for evaluation. CTA revealed new RLL subsegmental PE, lovenox 85mg x 1 dose administered in ED, and her lovenox/ coumadin regimen d/oneil in favor of eliquis. Pt d/oneil home with next day heme follow up. However, 1hr after returning home, pt decided to present to [facility] ED due to persistent Left chest pain. Since she had an outpt appt with Dr. Marin ( heme), pt left ED to attend appointment and then returned to complete evaluation. Repeat duplex LEs neg DVT. In ED Labs were unremarkable: H/H 9.9/31.3, INR 1.39 CXR: negative EKG: NSR 77bpm, LVH. Pt will be placed in observation and started on eliquis, with plans to d/c home tomorrow. History Source: Patient Limitations to Obtaining History: No Limitations, Other (PMD: Dr. Thierry Palafox M.D. Hematology: Dr. Tania Burton [phone]) - Past Medical History Pulmonary: Yes: Pulmonary Embolus ...: No - Past Surgical History Past Surgical History: Yes: Hysterectomy (03/25/2019) Additional Past Surgical History: VSD closure 1996 - Advance Directives Advance Directives: Yes: Health Care Proxy (Ligia Sherwood) - Smoking History Smoking history: Never smoked Have you smoked in the past 12 months: No - Alcohol/Substance Use Hx Alcohol Use: No History of Substance Use: reports: None - Social History Usual Living Arrangement: Yes: Alone ADL: Independent History of Recent Travel: No Home Medications - Allergies Allergies/Adverse Reactions: Allergies Allergy/AdvReac Type Severity Reaction Status Date / Time No Known Allergies Allergy Verified 03/31/19 16:00 - Home Medications Home Medications: Ambulatory Orders Docusate Sodium [Colace -] 100 mg PO BID #100 capsule 07/28/18 Ferrous Sulfate [Feosol] 325 mg PO BID #60 ud 07/28/18 Apixaban [Eliquis -] 10 mg PO BID 04/01/19 Family Disease History - Family Disease History Family Disease History: Other: Father (unknown), Mother (alive (71) HTN, DMII), Brother (alive (40) well), Sister (alive (51) HTN, pre-DM) Review of Systems - Review of Systems Constitutional: reports: No Symptoms Eyes: reports: No Symptoms HENT: reports: No Symptoms Neck: reports: No Symptoms Cardiovascular: reports: Chest Pain Respiratory: reports: No Symptoms Gastrointestinal: reports: No Symptoms Genitourinary: reports: No Symptoms Breasts: reports: No Symptoms Reported Musculoskeletal: reports: No Symptoms Integumentary: reports: No Symptoms Neurological: reports: No Symptoms Endocrine: reports: No Symptoms Hematology/Lymphatic: reports: No Symptoms Psychiatric: reports: No Symptoms Physical Examination Vital Signs: Vital Signs Temperature 98.4 F 04/01/19 11:27 Pulse Rate 91 H 04/01/19 18:16 Respiratory Rate 18 04/01/19 18:16 Blood Pressure 101/61 04/01/19 18:16 O2 Sat by Pulse Oximetry (%) 99 04/01/19 18:16 Constitutional: Yes: Well Nourished, No Distress, Calm Eyes: Yes: Conjunctiva Clear, EOM Intact, PERRL HENT: Yes: Atraumatic, Normocephalic Neck: Yes: Supple, Trachea Midline Cardiovascular: Yes: Regular Rate and Rhythm Respiratory: Yes: Regular, CTA Bilaterally Gastrointestinal: Yes: Normal Bowel Sounds, Soft ...Rectal Exam: Yes: Deferred Musculoskeletal: Yes: WNL Extremities: Yes: WNL Edema: No Peripheral Pulses WNL: Yes Peripheral Pulses: Left Radial: 2+, Right Radial: 2+, Left Doralis Pedis: 2+, Right Dorsalis Pedis: 2+ Integumentary: Yes: Incision (abdominal) Wound/Incision: Yes: Cally Intact, Dressing Dry and Intact Neurological: Yes: Alert, Oriented ...Motor Strength: WNL Psychiatric: Yes: Alert, Oriented Labs: CBC, BMP 04/01/19 15:37 04/01/19 15:37 Imaging - Results Chest X-ray: Report Reviewed (CXR 04/01/2019 Impression: normal Chest Reported by Dr. Raffaele Neely MD), Other (CXR 03/31/2019 @ [facility] Impression : No focal consolidation) Cat Scan: Other (CTA chest @ [facility] 03/31/2019 Impression: New right lower lobe pulmonary embolism. Read by: Malissa Riggins) Ultrasound: Report Reviewed (Doppler studies b/l LEs 04/01/2019 There is no evidence of deep venous thromboses in both lower extremities. Normal-appearing inferior vena cava and normal spectral waveforms down through its bifurcation including proximal portion of the right and left common iliac vein. The rest of the common iliac vein and external iliac vein could not be evaluated due to the patient 's condition, complaining of pain Reported By: Vishal Lovett MD [id number]) Problem List - Problems (1) Prophylactic measure Assessment/Plan: Ambulate as tolerated Incentive spirometry pt on eliquis PPI bowel regimen with colace Code(s): Z29.9 - ENCOUNTER FOR PROPHYLACTIC MEASURES, UNSPECIFIED (2) Pulmonary embolism Assessment/Plan: start eliquis 10mg bid x 7days, then decrease to 2.5mg BID bleeding precautions f/u with computer forensics analyst as instructed for chronic thromboembolism Code(s): I26.99 - OTHER PULMONARY EMBOLISM WITHOUT ACUTE COR PULMONALE Qualifiers: Pulmonary embolism type: other Chronicity: unspecified Acute cor pulmonale presence: without acute cor pulmonale Qualified Code(s): I26.99 - Other pulmonary embolism without acute cor pulmonale Assessment/Plan FEN: regular diet Code Status: Full code Visit type - Emergency Visit Emergency Visit: Yes ED Registration Date: 04/01/19 Care time: The patient presented to the Emergency Department on the above date and was hospitalized for further evaluation of their emergent condition. - New Patient This patient is new to me today: Yes Date on this admission: 04/02/19 - Critical Care Critical Care patient: No
--- NOTE | 2019-04-01 20:28 | CONSULT ---
Consult - text type - Consultation Consultation Note: Patient seen and examined 38 y/o patient with h/o fibroids, h/o PE , presented with syncopal episode in . Was on lovenox which was bridged to coumadin Patient is post op. D8 after MAMIE, bilateral salpingectomy she was being bridged back with lovenox and coumadin she developed left sided chest pain 03/01. no shortness of breath. Was seen in [facility] ER. CT scan compared to 10/30 revealed new RLL PE per report She was switched to eliquis 10mg bid Duplex was negative she was then seen in our ER for mild exertional shortness of breath and discharged she was seen in the office and reported continued left chest pain , with stable vitals.She was sent to ER for further w/u Repeat duplexes including ivc was negative. PMH iron deficiecny anemia Fibroids PE 07/31 Last Vital Signs Temp Pulse Resp BP Pulse Ox 98.4 F 91 H 18 101/61 99 04/01/19 11:27 04/01/19 18:16 04/01/19 18:16 04/01/19 18:16 04/01/19 18:16 Cor: RSR, No murmurs, No gallops Lungs: Clear to P&A Abd: Soft, Normal bowel sounds, No organomegaly Ext:No significant edema Abnormal Lab Results 04/01/19 04/01/19 15:37 15:37 Hgb 9.9 L Hct 31.3 L MCHC 31.6 L RDW 18.4 H Calcium 8.4 L Total Bilirubin 0.1 L Albumin 2.9 L Active Medications Acetaminophen (Tylenol -) 650 mg PO Q4H PRN PRN Reason: PAIN LEVEL 1-5 Apixaban (Eliquis -) 10 mg PO BID JEVOANY Docusate Sodium (Colace -) 100 mg PO BID JEOVANY Ferrous Sulfate (Feosol -) 325 mg PO BID JEOVANY A/.P 38 y/o patient with h/o fibroids, h/o PE , presented with syncopal episode in . Was on lovenox which was bridged to coumadin Patient is post op. D8 after MAMIE, bilateral salpingectomy she was being bridged back with lovenox and coumadin she developed left sided chest pain 03/01. no shortness of breath. Was seen in [facility] ER. CT scan compared to 10/30 revealed new RLL PE per report She was switched to eliquis 10mg bid Duplex was negative she was then seen in our ER for mild exertional shortness of breath and discharged she was seen in the office and reported continued left chest pain , with stable vitals.She was sent to ER for further w/u Repeat duplexes including ivc was negative. Plan: continue eliquis pulmonary consult compare CT scans from [place] with 10/2018 CT scan start protonix anemia--check iron studies/ferritin to f/u with CAREER MANAGER as out patient for staple removal --scheduled on 04/03
[2019-04-01] MEDS: DOCUSATE SODIUM 100 MG CAPSULE (FP) PO SCH (21:32)
[2019-04-01] MEDS: ACETAMINOPHEN 325 MG TABLET (FP) PO PRN (21:32)
[2019-04-01] MEDS: FERROUS SO4 325 MG TABLET (FP) PO SCH (21:32)
[2019-04-01 22:23] LABS: INR 1.22 (0.83-1.09); PROTHROMBIN TIME (PATIENT) 14.4 SEC (9.7-13.0)
[2019-04-01 22:26] LABS: ACTIVATED PTT 31.4 SECONDS (25.2-36.5)
[2019-04-01] MEDS: PANTOPRAZOLE 40 MG TABLET (FP) PO SCH (23:14)
[2019-04-01] MEDS: APIXABAN 5 MG TABLET PO SCH (23:14)
[2019-04-02 07:40] LABS: BASO % 0.6 % (0-2.0); EOS % 2.1 % (0-4.5); HEMATOCRIT 28.9 % (32.4-45.2); HEMOGLOBIN 9.5 GM/dL (10.7-15.3); LYMPH % 33.9 % (8-40); MCH 27.8 pg (25.7-33.7); MCHC 32.9 g/dl (32.0-36.0); MEAN CELL VOLUME 84.6 fl (80-96); MEAN PLT VOLUME 8.7 fl (7.5-11.1); MONO % 12.8 % (3.8-10.2); NEUT % 50.6 % (42.8-82.8); PLATELET COUNT 257 K/MM3 (134-434); RBC 3.41 M/mm3 (3.60-5.2); RDW 18.5 % (11.6-15.6); WHITE BLOOD COUNT 3.7 K/mm3 (4.0-10.0)
[2019-04-02 07:59] LABS: INR 1.34 (0.83-1.09); PROTHROMBIN TIME (PATIENT) 15.9 SEC (9.7-13.0)
[2019-04-02 08:02] LABS: ACTIVATED PTT 32.7 SECONDS (25.2-36.5)
[2019-04-02 08:30] LABS: ALBUMIN 2.6 g/dl (3.4-5.0); BILIRUBIN,TOTAL 0.2 mg/dL (0.2-1); CALCIUM 7.7 mg/dL (8.5-10.1); CREATININE 0.6 mg/dL (0.55-1.3); MAGNESIUM 1.9 mg/dL (1.8-2.4); POTASSIUM 4.3 mmol/L (3.5-5.1); TOT PROT 6.1 g/dl (6.4-8.2)
[2019-04-02] MEDS: ACETAMINOPHEN 325 MG TABLET (FP) PO PRN (08:57)
[2019-04-02] MEDS: DOCUSATE SODIUM 100 MG CAPSULE (FP) PO SCH ×2 (09:25→21:31)
[2019-04-02] MEDS: APIXABAN 5 MG TABLET PO SCH ×2 (09:25→21:32)
[2019-04-02] MEDS: FERROUS SO4 325 MG TABLET (FP) PO SCH ×2 (09:25→21:32)
[2019-04-02] MEDS: PANTOPRAZOLE 40 MG TABLET (FP) PO SCH (09:25)
--- NOTE | 2019-04-02 12:20 | PN ---
Progress Note (short form) - Note Progress Note: PULMONARY CONSULTATION DICTATED 04/02/19 IMP ACUTE PE PROVOKED S/P MAMIE H/O PE 07/2018 UNPROVOKED,? SECONDARY TO MASSIVE FIBROIDS WITH COMPRESSION H/OV SD S/P REPAIR PLAN AC W/U FOR HYPERCOAGULABLE STATE ECHO DR ABDI Problem List - Problems (1) Chest pain made worse by breathing Code(s): R07.1 - CHEST PAIN ON BREATHING (2) Pulmonary embolism Code(s): I26.99 - OTHER PULMONARY EMBOLISM WITHOUT ACUTE COR PULMONALE Qualifiers: Pulmonary embolism type: other Chronicity: unspecified Acute cor pulmonale presence: without acute cor pulmonale Qualified Code(s): I26.99 - Other pulmonary embolism without acute cor pulmonale (3) Chest pain Code(s): R07.9 - CHEST PAIN, UNSPECIFIED Qualifiers: Chest pain type: chest pain on breathing Qualified Code(s): R07.1 - Chest pain on breathing; R07.81 - Pleurodynia
--- NOTE | 2019-04-02 13:15 | CONS ---
DATE OF CONSULTATION: DATE OF DICTATION: 04/02/2019 HISTORY: The patient is a 38-year-old female with past medical history of VSD status post repair in 1997, history of pulmonary embolism July 2018 unprovoked although possibly secondary to large fibroids causing compression, status post abdominal hysterectomy 1 week ago admitted to [facility] with complaint of chest pain and shortness of breath. Patient states she had a total abdominal hysterectomy 1 week ago. On Monday evening prior to this admission, she started developing chest pain sharp in character associated with shortness of breath. She went to [facility], and it was noted apparently she had a CTA of the chest, which showed a tiny subsegmental pulmonary embolism and was in the right base. Patient was discharged home on Lovenox and Coumadin after discharge for her hysterectomy. From the emergency room, the patient was discharged home on Eliquis 10 mg. She presented to [facility] ER on Monday with the above complaints at which time she was admitted for further evaluation. She is a nonsmoker. Denies any history of occupational exposure to chemicals or fumes. There is no family history of blood clots. There is no history of recent travel. PAST MEDICAL HISTORY: Again, includes VSD status post repair in 1997, history of PE in 2017 unprovoked, although possibly secondary to compression secondary to large fibroids. There was also a recent total abdominal hysterectomy. REVIEW OF SYSTEMS: Positive shortness of breath, positive chest pain. No fever, no chills, no hemoptysis, no abdominal pain. CURRENT MEDICATIONS: Include Tylenol, Eliquis, Colace, Feosol, and Protonix. PHYSICAL EXAMINATION: General: The patient is a well-developed, well-nourished female awake, alert in no acute distress. Vital Signs: She is afebrile. Blood pressure 116/74, respiratory rate is 20, O2 saturation is 100% on room air. HEENT: Normocephalic, atraumatic. Neck: Supple. Heart: Regular S1, S2. Chest: Clear. Abdomen: Soft. Bowel sounds are positive. Extremities: No cyanosis or edema. LABORATORIES: WBC is 3.7, hemoglobin 9.5, hematocrit 28.9 with a platelet count of 257,000. BUN 10, creatinine 0.6. Chest x-ray: No infiltrates, no effusions. Duplex lower extremities negative for DVT. IMPRESSION: 1. Acute right lower lobe pulmonary emboli likely provoked status post total abdominal hysterectomy. 2. History of pulmonary embolism July 2018, unprovoked, although possibly secondary to massive fibroids with compression. 3. History of ventricular septal defect status post repair. PLAN: Continue anticoagulation. Obtain echocardiogram. Workup for hypercoagulable state as per Hematology. ROLO ABDI M.D. ERICKA/[id number]
--- NOTE | 2019-04-02 13:45 | EKG ---
Test Reason : Blood Pressure : / mmHG Vent. Rate : 077 BPM Atrial Rate : 077 BPM P-R Int : 132 ms QRS Dur : 082 ms QT Int : 370 ms P-R-T Axes : 039 048 049 degrees QTc Int : 418 ms NORMAL SINUS RHYTHM NORMAL ECG WHEN COMPARED WITH ECG OF 31-MAR-2019 16:15, NO SIGNIFICANT CHANGE WAS FOUND Confirmed by MD Pinto Daniel ([id number]) on 04/02/2019 1:45:20 PM Referred By: Confirmed By:Baron Pinto MD
--- NOTE | 2019-04-02 17:09 | PN ---
Physical Exam: SUBJECTIVE: Patient seen and examined at bedside OBJECTIVE: Vital Signs Period Temp Pulse Resp BP Sys/Castrejon Pulse Ox Last 24 Hr 98.5 F-99.5 F 76-91 18-20 101-121/61-74 98-100 GENERAL: The patient is awake, alert, and fully oriented, in no acute distress. HEAD: Normal with no signs of trauma. EYES: PERRL, extraocular movements intact, sclera anicteric, conjunctiva clear. No ptosis. ENT: Ears normal, nares patent, oropharynx clear without exudates, moist mucous membranes. NECK: Trachea midline, full range of motion, supple. LUNGS: Breath sounds equal, clear to auscultation bilaterally, no wheezes, no crackles, no accessory muscle use. HEART: Regular rate and rhythm, S1, S2 without murmur, rub or gallop. ABDOMEN: Soft, nontender, nondistended, normoactive bowel sounds, no guarding, no rebound, no hepatosplenomegaly, no masses. EXTREMITIES: 2+ pulses, warm, well-perfused, no edema. NEUROLOGICAL: Normal speech, gait not observed. PSYCH: Normal mood, normal affect. SKIN: Warm, dry, normal turgor, no rashes or lesions noted Laboratory Results - last 24 hr 04/01/19 04/01/19 04/02/19 21:45 21:45 05:30 WBC RBC Hgb Hct MCV MCH MCHC RDW Plt Count MPV Absolute Neuts (auto) Neutrophils % Lymphocytes % Monocytes % Eosinophils % Basophils % Nucleated RBC % PT with INR 14.40 H 15.90 H INR 1.22 H 1.34 H PTT (Actin FS) 31.4 32.7 Sodium Potassium Chloride Carbon Dioxide Anion Gap BUN Creatinine Est GFR (CKD-EPI)AfAm Est GFR (CKD-EPI)NonAf Random Glucose Calcium Magnesium Ferritin Total Bilirubin AST ALT Alkaline Phosphatase Total Protein Albumin Blood Type O POSITIVE Antibody Screen Negative 04/02/19 04/02/19 04/02/19 05:30 05:30 08:00 WBC 3.7 L RBC 3.41 L Hgb 9.5 L Hct 28.9 L MCV 84.6 MCH 27.8 MCHC 32.9 RDW 18.5 H Plt Count 257 MPV 8.7 Absolute Neuts (auto) 1.9 Neutrophils % 50.6 Lymphocytes % 33.9 Monocytes % 12.8 H Eosinophils % 2.1 Basophils % 0.6 Nucleated RBC % 0 PT with INR INR PTT (Actin FS) Sodium 138 Potassium 4.3 Chloride 108 H Carbon Dioxide 25 Anion Gap 5 L BUN 10 Creatinine 0.6 Est GFR (CKD-EPI)AfAm 134.01 Est GFR (CKD-EPI)NonAf 115.63 Random Glucose 85 Calcium 7.7 L Magnesium 1.9 Ferritin 24.3 Total Bilirubin 0.2 AST 22 ALT 31 Alkaline Phosphatase 49 Total Protein 6.1 L Albumin 2.6 L Blood Type O POSITIVE Antibody Screen Active Medications Generic Name Dose Route Start Last Admin Trade Name Freq PRN Reason Stop Dose Admin Acetaminophen 650 mg 04/01/19 18:15 04/02/19 08:57 Tylenol - PO 650 mg Q4H PRN Administration PAIN LEVEL 1-5 Apixaban 10 mg 04/01/19 22:00 04/02/19 09:25 Eliquis - PO 10 mg BID JEOVANY Administration Docusate Sodium 100 mg 04/01/19 22:00 04/02/19 09:25 Colace - PO 100 mg BID JEOVANY Administration Ferrous Sulfate 325 mg 04/01/19 22:00 04/02/19 09:25 Feosol - PO 325 mg BID JEOVANY Administration Pantoprazole Sodium 40 mg 04/01/19 22:15 04/02/19 09:25 Protonix - PO 40 mg DAILY JEOVANY Administration ASSESSMENT/PLAN: 38 year old F with h/o VSD repaired in 1996, uterine fibroids s/p MAMIE 03/25/19, chronic PEs on Lovenox to coumadin bridge post op 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 ED course: Labs were unremarkable: H/H 9.9/31.3, INR 1.39 CXR: negative EKG: NSR 77bpm, LVH. Chest CT revealed right subsegmental PE acute vs chronic 1. PE -continue apixaban as per hematology -review old CT scan with current with Dr Fitzgerald (VIR) to assess acute vs chronic PE -serial cbc/coags 2. Dyspnea -resolving -appreciate Dr Villagomez note 3. Dyspepsia -continue PPI 4. Dispo -dc tomorrow after CT reviewed 3. FEN -continue regualt diet 3. Problem List - Problems (1) Pulmonary embolism Code(s): I26.99 - OTHER PULMONARY EMBOLISM WITHOUT ACUTE COR PULMONALE Qualifiers: Pulmonary embolism type: other Chronicity: unspecified Acute cor pulmonale presence: without acute cor pulmonale Qualified Code(s): I26.99 - Other pulmonary embolism without acute cor pulmonale Visit type - Emergency Visit Emergency Visit: Yes ED Registration Date: 04/01/19 Care time: The patient presented to the Emergency Department on the above date and was hospitalized for further evaluation of their emergent condition. - New Patient This patient is new to me today: Yes Date on this admission: 04/02/19 - Critical Care Critical Care patient: No - Discharge Referral Referred to [facility] Med P.C.: No
--- NOTE | 2019-04-02 18:19 | PN ---
Physical Exam: SUBJECTIVE: Patient seen and examined patient resting in bed nad. No acute events. afebrile hemodynamically stable. cp has resolved. denies sob, cough, hemoptysis, palpitations. OBJECTIVE: Vital Signs Period Temp Pulse Resp BP Sys/Castrejon Pulse Ox Last 24 Hr 98.5 F-99.5 F 76-87 20-20 115-121/61-74 98-100 GENERAL: The patient is awake, alert, and fully oriented, in no acute distress. HEAD: Normal with no signs of trauma. EYES: PERRL, extraocular movements intact, sclera anicteric, conjunctiva clear. No ptosis. ENT: moist mucous membranes. NECK: supple no JVD LUNGS: Breath sounds equal, clear to auscultation bilaterally HEART: Regular rate and rhythm, S1, S2 ABDOMEN: Soft, nontender, nondistended, normoactive bowel sounds EXTREMITIES: 2+ pulses, warm, well-perfused, no edema. NEUROLOGICAL: Cranial nerves II through XII grossly intact. Normal speech, gait not observed. PSYCH: Normal mood, normal affect. SKIN: Warm, dry Laboratory Results - last 24 hr 04/01/19 04/01/19 04/02/19 21:45 21:45 05:30 WBC RBC Hgb Hct MCV MCH MCHC RDW Plt Count MPV Absolute Neuts (auto) Neutrophils % Lymphocytes % Monocytes % Eosinophils % Basophils % Nucleated RBC % PT with INR 14.40 H 15.90 H INR 1.22 H 1.34 H PTT (Actin FS) 31.4 32.7 Sodium Potassium Chloride Carbon Dioxide Anion Gap BUN Creatinine Est GFR (CKD-EPI)AfAm Est GFR (CKD-EPI)NonAf Random Glucose Calcium Magnesium Ferritin Total Bilirubin AST ALT Alkaline Phosphatase Total Protein Albumin Blood Type O POSITIVE Antibody Screen Negative 04/02/19 04/02/19 04/02/19 05:30 05:30 08:00 WBC 3.7 L RBC 3.41 L Hgb 9.5 L Hct 28.9 L MCV 84.6 MCH 27.8 MCHC 32.9 RDW 18.5 H Plt Count 257 MPV 8.7 Absolute Neuts (auto) 1.9 Neutrophils % 50.6 Lymphocytes % 33.9 Monocytes % 12.8 H Eosinophils % 2.1 Basophils % 0.6 Nucleated RBC % 0 PT with INR INR PTT (Actin FS) Sodium 138 Potassium 4.3 Chloride 108 H Carbon Dioxide 25 Anion Gap 5 L BUN 10 Creatinine 0.6 Est GFR (CKD-EPI)AfAm 134.01 Est GFR (CKD-EPI)NonAf 115.63 Random Glucose 85 Calcium 7.7 L Magnesium 1.9 Ferritin 24.3 Total Bilirubin 0.2 AST 22 ALT 31 Alkaline Phosphatase 49 Total Protein 6.1 L Albumin 2.6 L Blood Type O POSITIVE Antibody Screen Active Medications Generic Name Dose Route Start Last Admin Trade Name Freq PRN Reason Stop Dose Admin Acetaminophen 650 mg 04/01/19 18:15 04/02/19 08:57 Tylenol - PO 650 mg Q4H PRN Administration PAIN LEVEL 1-5 Apixaban 10 mg 04/01/19 22:00 04/02/19 09:25 Eliquis - PO 10 mg BID JEOVANY Administration Docusate Sodium 100 mg 04/01/19 22:00 04/02/19 09:25 Colace - PO 100 mg BID JEOVANY Administration Ferrous Sulfate 325 mg 04/01/19 22:00 04/02/19 09:25 Feosol - PO 325 mg BID JEOVANY Administration Pantoprazole Sodium 40 mg 04/01/19 22:15 04/02/19 09:25 Protonix - PO 40 mg DAILY JEOVANY Administration ASSESSMENT/PLAN: This is a 38 yo F with PMH of PE 2018 treated with coumadin, recent hysterectomy and b/l salpingectomy 9 d ago, who was found to have a RLL subsegmental PE at [facility]., new when compared with CTa chest from 2018. Was at that time on chrystal-coumadin bridge. was switched to eliquis and now presented to ed again with CP. Le duplex negative for DVT PE normocytic anemia -likley provoked by recent surgery, may be due to thrombosis in pelvic veins s/ p pelvic surgery -need to compare CT scans from [place] with 10/2018 CT scan to see whether this is truly a new PE and patient truly failed coumadin -check iron studies Problem List - Problems (1) Chest pain made worse by breathing Code(s): R07.1 - CHEST PAIN ON BREATHING (2) Pulmonary embolism Code(s): I26.99 - OTHER PULMONARY EMBOLISM WITHOUT ACUTE COR PULMONALE Qualifiers: Pulmonary embolism type: other Chronicity: unspecified Acute cor pulmonale presence: without acute cor pulmonale Qualified Code(s): I26.99 - Other pulmonary embolism without acute cor pulmonale Visit type - Emergency Visit Emergency Visit: Yes ED Registration Date: 04/01/19 Care time: The patient presented to the Emergency Department on the above date and was hospitalized for further evaluation of their emergent condition. - New Patient This patient is new to me today: Yes Date on this admission: 04/02/19 - Critical Care Critical Care patient: No - Discharge Referral Referred to [facility] Med P.C.: No
[2019-04-03 04:10] LABS: SERUM IRON SATURATION 83 % (15-55); TOTAL IRON BINDING CAPACITY 290 ug/dL (250-450); UIBC 49 ug/dL (131-425)
[2019-04-03 07:06] LABS: INR 1.35 (0.83-1.09)
[2019-04-03 07:29] LABS: BASO % 0.8 % (0-2.0); EOS % 1.7 % (0-4.5); HEMATOCRIT 30.1 % (32.4-45.2); HEMOGLOBIN 9.8 GM/dL (10.7-15.3); LYMPH % 31.1 % (8-40); MCH 27.7 pg (25.7-33.7); MCHC 32.4 g/dl (32.0-36.0); MEAN CELL VOLUME 85.3 fl (80-96); MEAN PLT VOLUME 8.7 fl (7.5-11.1); MONO % 11.4 % (3.8-10.2); PLATELET COUNT 261 K/MM3 (134-434); RBC 3.53 M/mm3 (3.60-5.2); WHITE BLOOD COUNT 4.5 K/mm3 (4.0-10.0)
[2019-04-03 07:34] LABS: ALBUMIN 2.7 g/dl (3.4-5.0); BILIRUBIN,TOTAL 0.2 mg/dL (0.2-1); CALCIUM 8.1 mg/dL (8.5-10.1); CREATININE 0.7 mg/dL (0.55-1.3); POTASSIUM 4.4 mmol/L (3.5-5.1); TOT PROT 6.3 g/dl (6.4-8.2)
[2019-04-03 08:49] VITALS: BP 100/55; PULSE 81; TEMP 98.5
[2019-04-03] MEDS: APIXABAN 5 MG TABLET PO SCH (09:02)
[2019-04-03] MEDS: FERROUS SO4 325 MG TABLET (FP) PO SCH (09:02)
[2019-04-03] MEDS: DOCUSATE SODIUM 100 MG CAPSULE (FP) PO SCH (09:02)
[2019-04-03] MEDS: PANTOPRAZOLE 40 MG TABLET (FP) PO SCH (09:02)
--- NOTE | 2019-04-03 10:53 | PN ---
Progress Note, Physician History of Present Illness: pulmonary alert,no distress,-cp,sob,-cough - Current Medication List Current Medications: Active Medications Acetaminophen (Tylenol -) 650 mg PO Q4H PRN PRN Reason: PAIN LEVEL 1-5 Last Admin: 04/02/19 08:57 Dose: 650 mg Apixaban (Eliquis -) 10 mg PO BID [facility] Last Admin: 04/03/19 09:02 Dose: 10 mg Docusate Sodium (Colace -) 100 mg PO BID [facility] Last Admin: 04/03/19 09:02 Dose: 100 mg Ferrous Sulfate (Feosol -) 325 mg PO BID [facility] Last Admin: 04/03/19 09:02 Dose: 325 mg Pantoprazole Sodium (Protonix -) 40 mg PO DAILY [facility] Last Admin: 04/03/19 09:02 Dose: 40 mg - Objective Vital Signs: Vital Signs Temperature 98.5 F 04/03/19 08:48 Pulse Rate 81 04/03/19 08:48 Respiratory Rate 18 04/03/19 08:48 Blood Pressure 100/55 L 04/03/19 08:48 O2 Sat by Pulse Oximetry (%) 99 04/03/19 06:00 Constitutional: Yes: Well Nourished, Calm Eyes: Yes: WNL HENT: Yes: WNL Neck: Yes: WNL Cardiovascular: Yes: Regular Rate and Rhythm, S1, S2 Respiratory: Yes: CTA Bilaterally Gastrointestinal: Yes: Normal Bowel Sounds, Soft Extremities: Yes: WNL Edema: No Labs: CBC, BMP 04/03/19 05:30 04/03/19 05:30 INR, PTT INR 1.35 (0.83-1.09) H 04/03/19 05:30 Problem List - Problems (1) Chest pain made worse by breathing Code(s): R07.1 - CHEST PAIN ON BREATHING (2) Pulmonary embolism Code(s): I26.99 - OTHER PULMONARY EMBOLISM WITHOUT ACUTE COR PULMONALE Qualifiers: Pulmonary embolism type: other Chronicity: unspecified Acute cor pulmonale presence: without acute cor pulmonale Qualified Code(s): I26.99 - Other pulmonary embolism without acute cor pulmonale (3) Chest pain Code(s): R07.9 - CHEST PAIN, UNSPECIFIED Qualifiers: Chest pain type: chest pain on breathing Qualified Code(s): R07.1 - Chest pain on breathing; R07.81 - Pleurodynia Assessment/Plan IMP ACUTE PE PROVOKED S/P MAMIE H/O PE 07/2018 UNPROVOKED,? SECONDARY TO MASSIVE FIBROIDS WITH COMPRESSION H/O VSD S/P REPAIR PLAN AC W/U FOR HYPERCOAGULABLE STATE OUTPATIENT ECHO DR ABDI Problem List - Problems (1) Chest pain made worse by breathing Code(s): R07.1 - CHEST PAIN ON BREATHING (2) Pulmonary embolism Code(s): I26.99 - OTHER PULMONARY EMBOLISM WITHOUT ACUTE COR PULMONALE Qualifiers: Pulmonary embolism type: other Chronicity: unspecified Acute cor pulmonale presence: without acute cor pulmonale Qualified Code(s): I26.99 - Other pulmonary embolism without acute cor pulmonale (3) Chest pain Code(s): R07.9 - CHEST PAIN, UNSPECIFIED Qualifiers: Chest pain type: chest pain on breathing Qualified Code(s): R07.1 - Chest pain on breathing; R07.81 - Pleurodynia
--- NOTE | 2019-04-03 14:43 | DS ---
Physical Examination Vital Signs: Vital Signs Temperature 98.5 F 04/03/19 14:00 Pulse Rate 81 04/03/19 14:00 Respiratory Rate 18 04/03/19 14:00 Blood Pressure 100/55 L 04/03/19 14:00 O2 Sat by Pulse Oximetry (%) 99 04/03/19 14:00 Constitutional: Yes: Well Nourished, No Distress, Calm Eyes: Yes: WNL, Conjunctiva Clear HENT: Yes: WNL, Atraumatic, Normocephalic Neck: Yes: WNL, Supple, Trachea Midline Cardiovascular: Yes: WNL, Regular Rate and Rhythm Respiratory: Yes: WNL, Regular, CTA Bilaterally Gastrointestinal: Yes: WNL, Normal Bowel Sounds, Soft ...Rectal Exam: Yes: Deferred Renal/: Yes: WNL Breast(s): Yes: WNL Musculoskeletal: Yes: WNL Extremities: Yes: WNL Edema: No Peripheral Pulses WNL: Yes Integumentary: Yes: WNL Wound/Incision: Yes: Well Approximated, [place] Intact (phuc to be removed prior to DC) Neurological: Yes: WNL ...Motor Strength: WNL Psychiatric: Yes: WNL Labs: CBC, BMP 04/03/19 05:30 04/03/19 05:30 Discharge Summary Reason For Visit: CHEST PAIN MADE WORSE BY BREATHING PULMONARY EMBOL Hospital Course: Patient admitted from Dr Elias's office for management of PE. Started on eliquis at 10mg BID. Seen by Dr Diaz from Pulmonary. No further treatment new- sequale of residual PE. No longer requiiring O2 and able to ambulate without dyspnea or chest pain. Spoke with Dr Martin who review that old CTs from previous admissions and he feels this PE was not an acute event but CT was not the best quality but do not feel that the test needs to be requeated since she clincally improved. Phuc for recent hysterectomy removed after spekaing with Dr Schofield from [facility]-patient will follow as am optpatient. Eliquis will be decreased on monday to 5mg as per Dr. Elias. Condition: Good - Instructions Diet, Activity, Other Instructions: Resume regular diet Continue Apixaban at 10mg until Monday and then decrease to 5mg Disposition: HOME - Home Medications Comprehensive Discharge Medication List: Ambulatory Orders Docusate Sodium [Colace -] 100 mg PO BID #100 capsule 07/28/18 Ferrous Sulfate [Feosol] 325 mg PO BID #60 ud 07/28/18 Apixaban [Eliquis -] 10 mg PO BID 04/01/19 Pantoprazole Sodium [Protonix -] 40 mg PO DAILY tablet.ec 04/03/19 This patient is new to me today: No Emergency Visit: Yes ED Registration Date: 04/01/19 Care time: The patient presented to the Emergency Department on the above date and was hospitalized for further evaluation of their emergent condition. Critical Care patient: No - Discharge Referral Referred to [facility] Med P.C.: No
--- NOTE | 2019-04-03 15:39 | ECHO ---
Name: MAURA MOYA Exam:Adult Echocardiogram Study Date: 04/03/2019 09:07 AM Age: 38 yrs Reason For Study: new pe Height: 65 in Weight: 184 lb BSA: 1.9 m2 MMode/2D Measurements & Calculations IVSd: 1.1 cm Ao root diam: 3.3 cm LVIDd: 4.4 cm LA dimension: 2.8 cm LVIDs: 2.6 cm ACS: 1.9 cm LVPWd: 0.81 cm IVSs: 1.2 cm LVPWs: 1.3 cm EDV(Teich): 87.5 ml ESV(Teich): 24.1 ml Doppler Measurements & Calculations MV E max mario: 56.0 cm/sec Ao V2 max: 123.1 cm/sec MV A max mario: 47.4 cm/sec Ao max P.1 mmHg MV E/A: 1.2 Ao V2 mean: 95.3 cm/sec Ao mean P.9 mmHg Ao V2 VTI: 23.8 cm AI P1/2t: 539.5 msec AI max mario: 375.9 cm/sec TR max mario: 230.8 cm/sec AI max P.5 mmHg TR max P.3 mmHg AI dec slope: 204.1 cm/sec2 Med Peak E' Mario: 7.3 cm/sec Med E/e': 7.6 Lat Peak E' Mario: 13.4 cm/sec Lat E/e': 4.2 Procedure A two-dimensional transthoracic echocardiogram with color flow and Doppler was performed. Left Ventricle The left ventricular size, thickness and function are normal. The left ventricular ejection fraction is normal. Left Ventricular Filling pattern is normal for age. The left ventricular wall motion is giovanna l. Right Ventricle The right ventricle is not well visualized. Mitral Valve There is mild mitral valve thickening. There is no mitral valve stenosis. There is mild mitral regurg itation. Tricuspid Valve There is mild tricuspid valve thickening. There is no tricuspid stenosis. There is moderate tricuspid regurgitation. Right ventricular systolic pressure is normal. Aortic Valve The aortic valve is normal in structure and function. No hemodynamically significant valvular aortic stenosis. Trace aortic regurgitation. Pulmonic Valve The pulmonic valve is not well visualized. Great Vessels The aortic root is normal size. Pericardium/Pleura There is no pericardial effusion. Interpretation Summary The left ventricular size, thickness and function are normal The left ventricular ejection fraction is normal. The left ventricular wall motion is normal. There is mild mitral regurgitation. There is moderate tricuspid regurgitation. Right ventricular systolic pressure is normal. Trace aortic regurgitation. Left Ventricular Filling pattern is normal for age. MD Pernell Mcclain 04/03/2019 03:38 PM
== END 2019-04-03 14:22 | disposition home or self-care (01) ==
LOC: JER 10:35 → JERBED 16:41 → J4W 18:50
PROVIDERS: ADMIT Internal Medicine; ATTEND Nurse Practitioner Acute Care
DX: R07.1 Chest pain on breathing (principal); I26.99 Other pulmonary embolism without acute cor pulmonale; Z79.01 Long term (current) use of anticoagulants; Z29.9 Encounter for prophylactic measures, unspecified; D50.9 Iron deficiency anemia, unspecified; R06.00 Dyspnea, unspecified; R10.13 Epigastric pain
CPT/HCPCS: 36415; 71046-TC-FY; 80048; 80053; 82542; 82728; 83540; 83550; 83735; 84484; 85025; 85610; 85730; 86022; 86850; 86900; 86901; 93005; 93010; 93306-TC; 93970-TC; 99282-25; G0378